=== PATIENT | male | born 1970 | race Caucasian/White ===

== ENCOUNTER 2016-10-31 19:14 | Emergency (ER) | payer BC ==
[2016-10-31] MEDS ORDERED: HYDROmorphone 1 MG/ML SYRINGE IVP STA (19:43)
[2016-10-31] MEDS ORDERED: HYDROmorphone 1 MG/ML SYRINGE ONE (19:58)
[2016-10-31] MEDS ORDERED: SUMAtriptan 6 MG/0.5 ML VIAL SUBQ STA (21:01)
[2016-10-31] MEDS ORDERED: SUMAtriptan 6 MG/0.5 ML VIAL SUBQ ONE (21:04)
[2016-10-31] MEDS ORDERED: LIDOCAINE 2%-EPI 1:100000 20 ML MDV SUBQ STA (21:26)
[2016-10-31] MEDS ORDERED: MIDAZOLAM 2 MG/2 ML VIAL IVP STA (21:26)
[2016-10-31] MEDS ORDERED: MIDAZOLAM 2 MG/2 ML VIAL ONE (21:30)
[2016-10-31] MEDS ORDERED: LIDOCAINE 1%-EPI 1:100000 20 ML MDV ONE (21:30)
[2016-10-31] MEDS ORDERED: SODIUM CHLORIDE 0.9% 1,000 ML IV ONE (22:05)
[2016-10-31] MEDS ORDERED: HALOPERIDOL 5 MG/ML VIAL IVP STA (22:05)
[2016-10-31] MEDS ORDERED: HALOPERIDOL 5 MG/ML VIAL ONE (22:10)
== END 2016-10-31 23:10 | disposition home or self-care (01) ==
DX: R51 Headache (principal)
CPT/HCPCS: 36415; 62270; 70450; 80053; 82945; 83690; 84157; 85025; 87070; 87205; 89051; 96372; 96374; 96375; 99283; 99284; J1170

== ENCOUNTER 2017-02-05 15:54 | Outpatient (CLI) | payer BC | END 2017-02-05 15:55 | disposition short-term general hospital (02) | DX: R07.9 Chest pain, unspecified (principal); R06.02 Shortness of breath | CPT/HCPCS: A0425; A0427 ==

== ENCOUNTER 2017-05-24 19:55 | Emergency (ER) | payer BC ==
[2017-05-24 20:03] VITALS: BP 140/85
[2017-05-24] MEDS ORDERED: oxyCOD/ACETAMIN 5 MG/325 MG TABLET PO STA (21:10)
[2017-05-24] MEDS ORDERED: oxyCOD/ACETAMIN 5 MG/325 MG TABLET PO ONE (21:18)
[2017-05-24] MEDS ORDERED: LIDOCAINE 2%-EPI 1:100000 20 ML MDV ONE (21:19)
--- NOTE | 2017-05-24 21:35 | ED Physician Documentation ---
PD HPI SKIN - Stated complaint Stated Complaint: Phillip BULLOCK - Chief complaint Chief Complaint: Wound - History obtained from History obtained from: Patient, Family - History of Present Illness Timing - onset: How many days ago (3) Timing - details: Gradual onset, Still present Location: RUE Quality / character: Painful, Raised Associated symptoms: No: Fever, Myalgias, Joint pain Contributing factors: No: Exposed to medication, Exposed to food Similar symptoms before: Has not had sx before Recently seen: Not recently seen - Additional information Additional information: Patient is a 47 year old male presenting to the emergency department for right axillary abscess. Patient states that he noticed it a couple of days ago and it has become progressively worse. Review of Systems Constitutional: denies: Fever, Chills Nose: denies: Rhinorrhea / runny nose, Congestion Throat: denies: Sore throat Cardiac: denies: Chest pain / pressure, Palpitations GI: denies: Nausea, Vomiting Skin: reports: Lesions Immunocompromised: denies: Immunocompromised PD PAST MEDICAL HISTORY - Past Surgical History Past Surgical History: No - Present Medications Home Medications: Ambulatory Orders Medication Instructions Recorded Confirmed Aspirin 81 mg PO DAILY 05/24/17 05/24/17 Atenolol 25 mg PO DAILY 05/24/17 05/24/17 Atorvastatin Calcium 40 mg PO DAILY 05/24/17 05/24/17 Cholecalciferol (Vitamin D3) 1,000 unit PO DAILY 05/24/17 05/24/17 [Vitamin D3] Clopidogrel [Plavix] 75 mg PO DAILY 05/24/17 05/24/17 Cyanocobalamin (Vitamin B-12) 2,000 mcg PO DAILY 05/24/17 05/24/17 [Vitamin B-12] Fluoxetine HCl [Fluoxetine HCl] 20 mg PO DAILY 05/24/17 05/24/17 Pantoprazole Sodium [Protonix] 40 mg PO DAILY 05/24/17 05/24/17 Sildenafil Citrate [Sildenafil] 100 mg PO DAILY 05/24/17 05/24/17 traZODone [Desyrel] 100 mg PO DAILY 05/24/17 05/24/17 - Allergies Allergies/Adverse Reactions: Allergies Allergy/AdvReac Type Severity Reaction Status Date / Time niacin Allergy Hives Verified 05/24/17 20:02 - Social History Does the pt smoke?: No Smoking Status: Never smoker Does the pt drink ETOH?: Yes Does the pt have substance abuse?: No PD ED PE NORMAL - Vitals Vital signs reviewed: Yes - General General: Alert and oriented X 3, No acute distress - HEENT HEENT: Atraumatic, PERRL - Neck Neck: Supple, no meningeal sign - Cardiac Cardiac: RRR - Respiratory Respiratory: No respiratory distress - Abdomen Abdomen: Soft, Non distended - Extremities Extremities: No deformity, Normal ROM s pain - Neuro Neuro: Alert and oriented X 3, No motor deficit, No sensory deficit, Normal speech - Psych Psych: Normal mood, Normal affect PD ED PE EXPANDED - Derm Derm: Abscess (2cm by 1 cm abscess in right axillary region) Results - Vitals Vitals: Vital Signs - 24 hr 05/24/17 20:02 Temperature 36.5 C Heart Rate 66 Respiratory 16 Rate Blood Pressure 140/85 H O2 Saturation 99 Oxygen O2 Source Room air Procedures - Abscess I&D (location) right axilla Preparation: Lidocaine 2 % Incision: Incised with scalpel, Purulent drainage Other: Pt tolerated well PD MEDICAL DECISION MAKING - ED course Complexity details: reviewed old records, reviewed results, re-evaluated patient , considered differential, d/w patient, d/w family ED course: Patient was seen and examined at bedside. patient was well appearing. abscess was I/D as described above. patient required no further work up and was stable for discharge with outpatient follow up. Departure - Departure Disposition: 01 Home, Self Care Clinical Impression: Abscess Condition: Good Instructions: ED Abscess IandD Follow-Up: primary,care provider [Other] - As Needed Comments: Please keep your wound clean and dry. You should try to expel the material while in the shower. You should follow up with your pmd if your symptoms dont improve over the next couple of days. You can take motrin or tylenol as needed for pain. Discharge Date/Time: 05/24/17 21:49
== END 2017-05-24 21:49 | disposition home or self-care (01) ==
LOC: ED 19:55
DX: L02.411 Cutaneous abscess of right axilla (principal); Z79.82 Long term (current) use of aspirin
CPT/HCPCS: 10060; 99282; 99283; A9270

== ENCOUNTER 2017-10-02 13:59 | Emergency (ER) | payer BC ==
--- NOTE | 2017-10-02 14:37 | ED Physician Documentation ---
PD HPI BACK PAIN - Stated complaint Stated Complaint: LOW BACK PX - Chief complaint Chief Complaint: Back Pain - History obtained from History obtained from: Patient - History of Present Illness Timing - onset: How many weeks ago (1) Timing - duration: Weeks (1) Timing - details: Gradual onset, Still present Location: Lower, Right Quality: Pain, Spasm Associated symptoms: No: Fever, Weakness, Numbness, Incontinent of urine Worsened by: Movement, Lifting Contributing factors: Lifting, Twisting. No: Trauma Similar symptoms before: Diagnosis (has had back pains intermittently for awhile with prior back surgery in about 2009. Has gotten referral to Spine surgeon at [place] with appt Oct 22. Having increased pain the past couple weeks and OTC meds not working well.) Review of Systems Constitutional: denies: Fever, Chills Nose: denies: Rhinorrhea / runny nose, Congestion Throat: denies: Sore throat Cardiac: denies: Chest pain / pressure Respiratory: denies: Cough GI: denies: Abdominal Pain, Nausea, Vomiting, Diarrhea Skin: reports: Rash (he says he has had small bumps in right armpit that drain after they get bigger then others crop up. has a few small ones currently.) PD PAST MEDICAL HISTORY - Past Medical History Cardiovascular: [place] Respiratory: None Neuro: None Psych: Depression Musculoskeletal: Chronic back pain - Past Surgical History Past Surgical History: Yes Cardiovascular: Coronary stent - Present Medications Home Medications: Ambulatory Orders Medication Instructions Recorded Confirmed Aspirin 81 mg PO DAILY 05/24/17 10/02/17 Atenolol 25 mg PO DAILY 05/24/17 10/02/17 Atorvastatin Calcium 40 mg PO DAILY 05/24/17 10/02/17 Cholecalciferol (Vitamin D3) 1,000 unit PO DAILY 05/24/17 10/02/17 [Vitamin D3] Clopidogrel [Plavix] 75 mg PO DAILY 05/24/17 10/02/17 Cyanocobalamin (Vitamin B-12) 2,000 mcg PO DAILY 05/24/17 10/02/17 [Vitamin B-12] Fluoxetine HCl [Fluoxetine HCl] 20 mg PO DAILY 05/24/17 10/02/17 Pantoprazole Sodium [Protonix] 40 mg PO DAILY 05/24/17 10/02/17 Dexamethasone [Decadron] 4 mg PO DAILY #5 tablet 10/02/17 Methocarbamol [Robaxin-750] 750 mg PO Q6H PRN #30 tablet 10/02/17 Mupirocin 1 applic TP TID #15 oint...g. 10/02/17 Oxycodone HCl/Acetaminophen 1 each PO Q6H PRN #20 tablet 10/02/17 [Percocet 7.5-325 mg Tablet] Sulfamethox/Trimeth 800/160 1 each PO BID #14 tablet 10/02/17 [Bactrim Ds 800/160] - Allergies Allergies/Adverse Reactions: Allergies Allergy/AdvReac Type Severity Reaction Status Date / Time niacin Allergy Hives Verified 10/02/17 14:07 - Social History Does the pt smoke?: No Smoking Status: Never smoker Does the pt drink ETOH?: Yes Does the pt have substance abuse?: No - Immunizations Immunizations are current?: No Immunizations: TDAP >10years/unknown PD ED PE NORMAL - Vitals Vital signs reviewed: Yes - General General: Alert and oriented X 3, No acute distress, Well developed/nourished - HEENT HEENT: Pharynx benign - Neck Neck: Supple, no meningeal sign, No adenopathy - Cardiac Cardiac: RRR, No murmur - Respiratory Respiratory: Clear bilaterally - Abdomen Abdomen: Soft, Non tender - Back Back: No CVA TTP, No spinal TTP (but is tender in lumbar muscles of upper to mid lumbar area with lessened comfortable ROM. No rash nor sores. No percussion tenderness at spine. ) - Derm Derm: Normal color, Warm and dry, No rash, Other (right armpit with small pointed pimple type bumps (a few small). No feeling of large abscess. ) - Neuro Neuro: Alert and oriented X 3, No motor deficit, No sensory deficit Results - Vitals Vitals: Vital Signs - 24 hr 10/02/17 10/02/17 14:04 15:27 Temperature 36.0 C L 36.4 C L Heart Rate 65 59 L Respiratory 16 20 Rate Blood Pressure 133/90 H 144/95 H O2 Saturation 98 98 Oxygen O2 Source Room air PD MEDICAL DECISION MAKING - ED course Complexity details: considered differential (low back pain without redness, rash , fever, nor percussion tenderness. He has had some small armpit abscesses for few weeks on and off; I don't get sense of seeded infection. ), d/w patient Departure - Departure Disposition: 01 Home, Self Care Clinical Impression: Armpit abscess Low back pain Qualifiers: Chronicity: unspecified Back pain laterality: bilateral Sciatica presence: with sciatica Sciatica laterality: sciatica laterality unspecified Qualified Code(s): M54.40 - Lumbago with sciatica, unspecified side Condition: Stable Record reviewed to determine appropriate education?: Yes Instructions: ED Low Back Pain Injury, ED Sciatica Follow-Up: Kassie Almodovar MD [Primary Care Provider] - [facility] [Provider Group] Prescriptions: Dexamethasone [Decadron] 4 mg PO DAILY #5 tablet Methocarbamol [Robaxin-750] 750 mg PO Q6H PRN #30 tablet PRN Reason: Spasms Mupirocin 1 applic TP TID #15 oint...g. Oxycodone HCl/Acetaminophen [Percocet 7.5-325 mg Tablet] 1 each PO Q6H PRN #20 tablet PRN Reason: Pain Sulfamethox/Trimeth 800/160 [Bactrim Ds 800/160] 1 each PO BID #14 tablet Comments: Tylenol if needed for mild pain. Use Decadron anti-inflammatory daily for 5 days. Add methocarbamol if needed for spasms and stiffness. To this add oxycodone every 6 hours if needed for pains. This will make you somnolent so be aware of that. Drink lots of fluids and daily stool softener so you do not get constipated from it. Follow-up with the [facility] spine clinic on October 22 as planned. Follow-up with your primary care or back in the ER here if worsening symptoms. For the armpit infection, cleanse with soap and water and apply mupirocin topical antibiotic 2-3 times a day. Also take Bactrim oral antibiotic twice daily for a week. Recheck if that is not improved over the next several days to week with your primary care. Discharge Date/Time: 10/02/17 15:53
[2017-10-02] MEDS ORDERED: DEXAMETHASONE 10 MG/ML VIAL PO STA (14:55)
[2017-10-02] MEDS ORDERED: KETOROLAC 60 MG/2 ML VIAL IM STA (14:55)
[2017-10-02 15:39] VITALS: BP 144/95
== END 2017-10-02 15:53 | disposition home or self-care (01) ==
LOC: ED 13:59
DX: L02.411 Cutaneous abscess of right axilla (principal); M54.40 Lumbago with sciatica, unspecified side; I25.2 Old myocardial infarction; Z95.5 Presence of coronary angioplasty implant and graft; Z79.82 Long term (current) use of aspirin
CPT/HCPCS: 96372; 99283

== ENCOUNTER 2018-02-01 19:50 | Emergency (ER) | payer BC, OTHER ==
[2018-02-01] MEDS ORDERED: MORPHINE 10 MG/ML VIAL IM STA (20:16)
[2018-02-01] MEDS ORDERED: KETOROLAC 60 MG/2 ML VIAL IVP STA (20:16)
[2018-02-01] MEDS ORDERED: oxyCODONE/ACET 5/325 Prepack 4 PO STA (20:16)
--- NOTE | 2018-02-01 20:19 | ED Physician Documentation ---
History of Present Illness - Stated complaint Stated Complaint: LOW BACK PX - Chief complaint Chief Complaint: Back Pain - History obtained from History obtained from: Patient - History of Present Illness Timing: Other (47-year-old gentleman with chronic recurrent low back pain, he was bending over to pick something up today at work and felt sharp pain in his low back like a band across the low back and across the top of the thighs but not lateralizing to one side or another. There is no weakness, numbness, or tingling in the legs or saddle area, no fevers. No incontinence.) Review of Systems Constitutional: denies: Fever, Chills Cardiac: denies: Chest pain / pressure, Palpitations Respiratory: denies: Dyspnea, Cough PD PAST MEDICAL HISTORY - Past Medical History Cardiovascular: [place] Respiratory: None Neuro: None Psych: Depression Musculoskeletal: Chronic back pain - Past Surgical History Past Surgical History: Yes Cardiovascular: Coronary stent - Present Medications Home Medications: Ambulatory Orders Medication Instructions Recorded Confirmed Aspirin 81 mg PO DAILY 05/24/17 10/02/17 Atenolol 25 mg PO DAILY 05/24/17 10/02/17 Atorvastatin Calcium 40 mg PO DAILY 05/24/17 10/02/17 Cholecalciferol (Vitamin D3) 1,000 unit PO DAILY 05/24/17 10/02/17 [Vitamin D3] Clopidogrel [Plavix] 75 mg PO DAILY 05/24/17 10/02/17 Cyanocobalamin (Vitamin B-12) 2,000 mcg PO DAILY 05/24/17 10/02/17 [Vitamin B-12] Fluoxetine HCl [Fluoxetine HCl] 20 mg PO DAILY 05/24/17 10/02/17 Pantoprazole Sodium [Protonix] 40 mg PO DAILY 05/24/17 10/02/17 Dexamethasone [Decadron] 4 mg PO DAILY #5 tablet 10/02/17 Methocarbamol [Robaxin-750] 750 mg PO Q6H PRN #30 tablet 10/02/17 Mupirocin 1 applic TP TID #15 oint...g. 10/02/17 Oxycodone HCl/Acetaminophen 1 each PO Q6H PRN #20 tablet 10/02/17 [Percocet 7.5-325 mg Tablet] Sulfamethox/Trimeth 800/160 1 each PO BID #14 tablet 10/02/17 [Bactrim Ds 800/160] Methocarbamol [Robaxin-750] 750 mg PO Q6H PRN #20 tablet 02/01/18 Oxycodone HCl/Acetaminophen 1 - 2 tab PO Q4H PRN #15 tablet 02/01/18 [Percocet 5-325 mg Tablet] - Allergies Allergies/Adverse Reactions: Allergies Allergy/AdvReac Type Severity Reaction Status Date / Time niacin Allergy Hives Verified 02/01/18 20:01 - Social History Does the pt smoke?: No Smoking Status: Never smoker Does the pt drink ETOH?: Yes Does the pt have substance abuse?: No - Immunizations Immunizations are current?: No Immunizations: TDAP >10years/unknown PD ED PE NORMAL - Vitals Vital signs reviewed: Yes - General General: Alert and oriented X 3, No acute distress - Back Back: No spinal TTP, Other (Diffuse paralumbar muscular tenderness in the low back.) - Extremities Extremities: Other (The patient has equal and normal Achilles and patellar reflexes bilaterally. Normal sensation in all areas of the legs. Patient denies saddle anesthesia. Normal strength in flexion-extension at the ankles, knees, and flexion of the hips.) - Neuro Neuro: Alert and oriented X 3, Normal speech Results - Vitals Vitals: Vital Signs - 24 hr 02/01/18 19:59 Temperature 36.7 C Heart Rate 71 Respiratory 18 Rate Blood Pressure 134/87 H O2 Saturation 98 Oxygen O2 Source Room air PD MEDICAL DECISION MAKING - ED course ED course: The [place] prescription monitoring program was queried with regard to this patient. No concerning findings were found. This patient has seemingly uncomplicated musculoskeletal back pain. The patient has no "red flags." Specifically denies IV drug use, fevers, incontinence, saddle anesthesia. Spinal epidural abscess was considered, given that the patient has no fever, is not diabetic, has no spinal tenderness, does not use IV drugs, and has no bilateral neurologic symptoms, the diagnosis of spinal epidural abscess is considered exceedingly unlikely. Departure - Departure Disposition: Home, Self Care Clinical Impression: Low back pain Qualifiers: Chronicity: acute Back pain laterality: bilateral Sciatica presence: without sciatica Qualified Code(s): M54.5 - Low back pain Condition: Good Record reviewed to determine appropriate education?: Yes Instructions: ED Spasm Back No Trauma Prescriptions: Methocarbamol [Robaxin-750] 750 mg PO Q6H PRN #20 tablet PRN Reason: Spasms Oxycodone HCl/Acetaminophen [Percocet 5-325 mg Tablet] 1 - 2 tab PO Q4H PRN #15 tablet PRN Reason: Pain Comments: Call your doctor to arrange a follow-up appointment, make the next available appointment. In the interim, return anytime if worse or if new symptoms develop. Do not drink or drive while taking narcotic pain medication. Note that many narcotic pain relievers also contain Tylenol/acetaminophen. Please ensure that your total dose of acetaminophen from all sources does not exceed 3 g (3000 mg) per day. You may get constipated while on this medication. Take a stool softener such as Colace twice a day while you are on it. Also add an [id number] laxative such as senna or MiraLAX on any day that you do not have a bowel movement. If you received a narcotic pain medication or sedative while in the emergency department, do not drive for the next 24 hours. Your blood pressure was elevated today on check into the emergency department. This does not mean that you have hypertension, it is a common phenomenon to come to the emergency department and have elevated blood pressure. I recommend that you see your primary care physician within the week to have it rechecked when you are feeling better.
[2018-02-01 20:42] VITALS: BP 136/70
== END 2018-02-01 20:41 | disposition home or self-care (01) ==
LOC: ED 19:50
DX: M54.5 Low back pain (principal); R03.0 Elevated blood-pressure reading, without diagnosis of hypertension; G89.29 Other chronic pain; I25.2 Old myocardial infarction; Z95.5 Presence of coronary angioplasty implant and graft
CPT/HCPCS: 96372; 96374; 99283

== ENCOUNTER 2018-09-10 06:58 | Outpatient (CLI) | payer OTHER ==
[2018-09-10] MEDS ORDERED: GADOBUTROL 10 MMOL/10 ML VIAL IVP ONE (08:06)
--- NOTE | 2018-09-10 12:50 | MRI Report ---
Reason: LBP Procedure Date: 09/10/2018 Accession Number: [id number] / [id number] Procedure: MRI - Lumbar Spine W/WO CPT Code: FULL RESULT: EXAM: MRI LUMBAR SPINE WITHOUT AND WITH CONTRAST EXAM DATE: 09/10/2018 07:23 AM. CLINICAL HISTORY: Low back pain. Worsening hip pain and leg pain with numbness. COMPARISONS: None. TECHNIQUE: Multiplanar, multisequence T1-weighted and fluid-sensitive sequences of the lumbar spine from T12 to S1 before and after administration of intravenous contrast. Other: None. IV contrast: 10 mL Gadavist. FINDINGS: Neurologic Structures: The conus terminates at L1-L2. The conus medullaris and cauda equina are unremarkable. Alignment: No scoliosis or spondylolisthesis. Bone Marrow: Five [id number] lumbar vertebral bodies are assumed. Moderate degenerative endplate signal changes at L5-S1. Disk Levels/Facets: T12-L1: Unremarkable. L1-L2: Unremarkable. L2-L3: Unremarkable. L3-L4: Minimal degenerative changes, but no stenosis or disk herniation. L4-L5: Mild disk space dehydration and narrowing. Minimal facet hypertrophy. Shallow circumferential disk bulge. Minimal marginal spurring. No focal extrusion, significant stenosis or focal nerve root compression. Small enhancing posterior annular fissure may be present. L5-S1: Moderately prominent degenerative disk disease. Disk space dehydration and narrowing. Mixed signal degenerative endplate signal changes. There may be an acute on chronic component. Prominent circumferential disk bulge with marginal spurring. Additional extension of disk protrusion with osteophyte laterally into both neural foramina. Mild facet arthropathy. Patent central canal. Mild lateral recess stenosis without S1 nerve root compression. Moderate to severe bilateral degenerative foraminal stenosis. Prominent enhancing annular fissure posteriorly. Spinal Canal: No enhancing masses within the spinal canal. No epidural abscess. Musculature: Normal. No edema, abnormal enhancement, or fatty atrophy. Other: None. IMPRESSION: 1. Degenerative changes at L4-L5, no associated stenosis. 2. Prominent degenerative changes as noted at L5-S1 with potentially significant degenerative foraminal stenosis bilaterally. 3. Benign-appearing degenerative endplate signal changes at L5-S1. 3. No evidence for enhancing infection or tumor. Comment: The following findings are so common in adults without low back pain that while we report their presence, they must be interpreted with caution and in the context of the clinical situation. (Reference Jarvik et al, Spine 2001) Prevalence of findings in patients without low back pain: Disk degeneration (any evidence): 92% Disk desiccation/T2 signal loss: 83% Disk height loss: 56% Disk bulge: 64% Disk protrusion: 32% Annular tear/high intensity zone: 38% RADIA
== END 2018-09-10 06:59 | disposition home or self-care (01) ==
LOC: LAB 06:58
PROVIDERS: ATTEND Internal Medicine
DX: M54.5 Low back pain (principal)
CPT/HCPCS: 36415; 72158; 82565; A9585

== ENCOUNTER 2019-02-10 17:12 | Emergency (ER) | payer BC, OTHER ==
--- NOTE | 2019-02-10 19:01 | XRAY Report ---
Reason: L wrist pain Procedure Date: 02/10/2019 Accession Number: [id number] / [id number] Procedure: XR - Wrist 4 View LT CPT Code: FULL RESULT: EXAM: LEFT WRIST RADIOGRAPHY EXAM DATE: 02/10/2019 06:48 PM. CLINICAL HISTORY: Chronic left dorsal wrist pain. COMPARISON: FINGER(S) RT 08/15/2017 7:02 PM. TECHNIQUE: 4 views. FINDINGS: Bones: Normal. No fractures or bone lesions. Joints: Normal. No subluxations. Soft Tissues: Normal. No soft tissue swelling. IMPRESSION: Normal wrist radiography. RADIA
--- NOTE | 2019-02-10 20:10 | ED Physician Documentation ---
PD HPI UPPER EXT INJURY - Stated complaint Stated Complaint: L WRIST PX - Chief complaint Chief Complaint: Ext Problem - History obtained from History obtained from: Patient - History of Present Illness Location: Left, Wrist Type of injury: Twist Timing - onset: Other (July 2018 (6 months ago)) Timing - details: Abrupt onset, Waxing and waning Pain level now: 7 Improved by: Rest Worsened by: Moving, Palpating Associated symptoms: No: Weakness, Numbness, Tingling, Swelling, Discolored Contributing factors: No: Anticoagulated Similar symptoms before: Has not had sx before Recently seen: Not recently seen - Additonal information Additional information: left wrist injury in July 2018, has had waxing and waning left wrist pain since then, worse the past month. Came to ED tonight because "just couldn't stand the pain any more". Has not seen a medical provider for this until now, has not made appointment yet. Review of Systems Skin: denies: Rash Musculoskeletal: reports: Joint pain. denies: Extremity swelling, Joint swelling Neurologic: denies: Focal weakness, Numbness PD PAST MEDICAL HISTORY - Past Medical History Past Medical History: No Cardiovascular: [place] Respiratory: None Neuro: None Endocrine/Autoimmune: None GI: None : None HEENT: None Psych: Depression Musculoskeletal: Chronic back pain Derm: None - Past Surgical History Past Surgical History: Yes Cardiovascular: Coronary stent - Present Medications Home Medications: Ambulatory Orders Medication Instructions Recorded Confirmed Aspirin 81 mg PO DAILY 05/24/17 10/02/17 Atenolol 25 mg PO DAILY 05/24/17 10/02/17 Atorvastatin Calcium 40 mg PO DAILY 05/24/17 10/02/17 Cholecalciferol (Vitamin D3) 1,000 unit PO DAILY 05/24/17 10/02/17 [Vitamin D3] Clopidogrel [Plavix] 75 mg PO DAILY 05/24/17 10/02/17 Cyanocobalamin (Vitamin B-12) 2,000 mcg PO DAILY 05/24/17 10/02/17 [Vitamin B-12] Fluoxetine HCl 20 mg PO DAILY 05/24/17 10/02/17 Pantoprazole Sodium [Protonix] 40 mg PO DAILY 05/24/17 10/02/17 Dexamethasone [Decadron] 4 mg PO DAILY #5 tablet 10/02/17 Methocarbamol [Robaxin-750] 750 mg PO Q6H PRN #30 tablet 10/02/17 Mupirocin 1 applic TP TID #15 oint...g. 10/02/17 Oxycodone HCl/Acetaminophen 1 each PO Q6H PRN #20 tablet 10/02/17 [Percocet 7.5-325 mg Tablet] Sulfamethox/Trimeth 800/160 1 each PO BID #14 tablet 10/02/17 [Bactrim Ds 800/160] Methocarbamol [Robaxin-750] 750 mg PO Q6H PRN #20 tablet 02/01/18 Oxycodone HCl/Acetaminophen 1 - 2 tab PO Q4H PRN #15 tablet 02/01/18 [Percocet 5-325 mg Tablet] - Allergies Allergies/Adverse Reactions: Allergies Allergy/AdvReac Type Severity Reaction Status Date / Time niacin Allergy Hives Verified 02/10/19 17:43 - Social History Does the pt smoke?: No Smoking Status: Former smoker Does the pt drink ETOH?: Yes Does the pt have substance abuse?: Yes Substance Use and Type: Marijuana - Immunizations Immunizations are current?: Yes Immunizations: TDAP >10years/unknown - POLST Patient has POLST: No PD ED PE NORMAL - Vitals Vital signs reviewed: Yes - General General: Alert and oriented X 3, No acute distress, Well developed/nourished - Derm Derm: Normal color, Warm and dry, No rash - Extremities Extremities: No deformity, No tenderness to palpate, No edema, Other (FROM right wrist (flex/ext/rad deviation/ulnar deviation), but increased pain with radial deviation) - Neuro Neuro: No motor deficit, No sensory deficit Results - Vitals Vitals: Vital Signs - 24 hr 02/10/19 02/10/19 17:36 20:27 Temperature 36.6 C 36.3 C L Heart Rate 66 57 L Respiratory 16 18 Rate Blood Pressure 129/82 H 134/87 H O2 Saturation 98 99 Oxygen O2 Source Room air - Rads (name of study) left wrist xrays Radiology: Prelim report reviewed, See rad report PD MEDICAL DECISION MAKING - ED course Complexity details: reviewed results, re-evaluated patient, considered differential, d/w patient Departure - Departure Disposition: 01 Home, Self Care Clinical Impression: Left wrist sprain Qualifiers: Encounter type: initial encounter Qualified Code(s): S63.502A - Unspecified sprain of left wrist, initial encounter Condition: Good Instructions: ED Splint Care YONIS Forrester Sprain Wrist Comments: Follow up with your doctor within 1-2 weeks. Further testing/treatment might be indicated. Discharge Date/Time: 02/10/19 20:30
[2019-02-10 20:30] VITALS: BP 134/87
== END 2019-02-10 20:30 | disposition home or self-care (01) ==
LOC: ED 17:12
DX: S63.502A Unspecified sprain of left wrist, initial encounter (principal); X50.1XXA Overexertion from prolonged static or awkward postures, initial encounter; Z87.891 Personal history of nicotine dependence; Z79.82 Long term (current) use of aspirin; Z79.02 Long term (current) use of antithrombotics/antiplatelets
CPT/HCPCS: 99282; 99283

== ENCOUNTER 2019-12-02 17:43 | Emergency (ER) | payer BC, OTHER ==
--- NOTE | 2019-12-02 19:37 | ED Physician Documentation ---
PD HPI URI - Stated complaint Stated Complaint: COUGH/CONGESTION - Chief complaint Chief Complaint: Resp - History obtained from History obtained from: Patient - History of Present Illness Timing - onset: How many days ago (11) Timing duration: Days Timing details: Gradual onset Associated symptoms: Ear pain, Nasal congestion, Rhinorrhea, Sinus pain, Productive cough. No: Fever Recently seen: Not recently seen Review of Systems Constitutional: reports: Reviewed and negative Ears: reports: Ear pain Nose: reports: Rhinorrhea / runny nose, Congestion, Sinus pressure / pain Respiratory: reports: Cough PD PAST MEDICAL HISTORY - Past Medical History Past Medical History: Yes Cardiovascular: [place] Respiratory: None Neuro: None Endocrine/Autoimmune: None GI: None : None HEENT: None Psych: Depression Musculoskeletal: Chronic back pain Derm: None - Past Surgical History Past Surgical History: Yes Cardiovascular: Coronary stent - Present Medications Home Medications: Ambulatory Orders Medication Instructions Recorded Confirmed Aspirin 81 mg PO DAILY 05/24/17 10/02/17 Atorvastatin Calcium 40 mg PO DAILY 05/24/17 10/02/17 Cholecalciferol (Vitamin D3) 1,000 unit PO DAILY 05/24/17 10/02/17 [Vitamin D3] Clopidogrel [Plavix] 75 mg PO DAILY 05/24/17 10/02/17 Cyanocobalamin (Vitamin B-12) 2,000 mcg PO DAILY 05/24/17 10/02/17 [Vitamin B-12] Fluoxetine HCl 20 mg PO DAILY 05/24/17 10/02/17 Pantoprazole Sodium [Protonix] 40 mg PO DAILY 05/24/17 10/02/17 atenoloL [Atenolol] 25 mg PO DAILY 05/24/17 10/02/17 Methocarbamol [Robaxin-750] 750 mg PO Q6H PRN #30 tablet 10/02/17 Mupirocin 1 applic TP TID #15 oint...g. 10/02/17 Oxycodone HCl/Acetaminophen 1 each PO Q6H PRN #20 tablet 10/02/17 [Percocet 7.5-325 mg Tablet] Sulfamethox/Trimeth 800/160 1 each PO BID #14 tablet 10/02/17 [Bactrim Ds 800/160] dexAMETHasone [Decadron] 4 mg PO DAILY #5 tablet 10/02/17 Methocarbamol [Robaxin-750] 750 mg PO Q6H PRN #20 tablet 02/01/18 Oxycodone HCl/Acetaminophen 1 - 2 tab PO Q4H PRN #15 tablet 02/01/18 [Percocet 5-325 mg Tablet] Albuterol Sulf [Ventolin Hfa 1 - 2 puffs INH Q4HR PRN #1 inhaler 12/02/19 Inhaler] Azithromycin [Zithromax] 250 mg PO DAILY #4 tablet 12/02/19 Benzonatate 200 mg PO TID PRN #20 capsule 12/02/19 predniSONE [Prednisone] 40 mg PO DAILY 3 Days #6 tablet 12/02/19 - Allergies Allergies/Adverse Reactions: Allergies Allergy/AdvReac Type Severity Reaction Status Date / Time niacin Allergy Hives Verified 12/02/19 17:51 - Social History Does the pt smoke?: No Smoking Status: Never smoker Does the pt drink ETOH?: Yes Does the pt have substance abuse?: Yes - Immunizations Immunizations are current?: Yes Immunizations: TDAP >10years/unknown - POLST Patient has POLST: No PD ED PE NORMAL - Vitals Vital signs reviewed: Yes - General General: Alert and oriented X 3, No acute distress, Well developed/nourished - HEENT HEENT: Ears normal, Moist mucous membranes - Neck Neck: Supple, no meningeal sign - Respiratory Respiratory: No respiratory distress, Clear bilaterally Results - Vitals Vitals: Oxygen O2 Source Room air - Labs Labs: Laboratory Tests 12/02/19 17:57 Influenza A (Rapid) Negative Influenza B (Rapid) Negative PD MEDICAL DECISION MAKING - ED course Complexity details: considered differential, d/w patient Departure - Departure Disposition: 01 Home, Self Care Clinical Impression: Sinusitis, Bronchitis, Otitis media Condition: Good Instructions: ED Sinusitis Abx Tx Prescriptions: Albuterol Sulf [Ventolin Hfa Inhaler] 1 - 2 puffs INH Q4HR PRN #1 inhaler PRN Reason: Shortness Of Air/Wheezing Azithromycin [Zithromax] 250 mg PO DAILY #4 tablet Benzonatate 200 mg PO TID PRN #20 capsule PRN Reason: Cough predniSONE [Prednisone] 40 mg PO DAILY 3 Days #6 tablet Forms: Activity restrictions Discharge Date/Time: 12/02/19 20:27
[2019-12-02] MEDS ORDERED: CHERRY SYRUP 10 ML UDC PO ONE (19:52)
[2019-12-02] MEDS ORDERED: AZITHROMYCIN 250 MG TABLET PO STA (19:52)
[2019-12-02] MEDS ORDERED: ALBUTEROL NEB 2.5 MG/3 ML INH STA (19:52)
[2019-12-02] MEDS ORDERED: DEXAMETHASONE 10 MG/ML VIAL PO STA (19:52)
[2019-12-02] MEDS ORDERED: BENZONATATE 100 MG CAPSULE PO STA (19:53)
[2019-12-02 20:28] VITALS: BP 150/90
== END 2019-12-02 20:27 | disposition home or self-care (01) ==
LOC: ED 17:43
DX: J32.9 Chronic sinusitis, unspecified (principal); J40 Bronchitis, not specified as acute or chronic; H66.90 Otitis media, unspecified, unspecified ear
CPT/HCPCS: 87275; 87276; 94640; 99283; 99284; A9270

== ENCOUNTER 2020-02-05 15:50 | Emergency (ER) | payer OTHER ==
--- NOTE | 2020-02-05 16:10 | ED Physician Documentation ---
PD HPI CHEST PAIN - Stated complaint Stated Complaint: CHEST DISCOMFORT, SWELLING, BILAT SIDE PX - Chief complaint Chief Complaint: Cardiac - History obtained from History obtained from: Patient - History of Present Illness Pain level max: 4 Pain level now: 3 Improved by: Nothing. No: Rest, Oxygen, Nitro, ASA, Antacids, Other medication Worsened by: No: Exertion, Inspiration, Eating, Movement, Palpation, Position Associated symptoms: No: Shortness of air, Diaphoresis, Nausea, Vomiting, Feeling faint / dizzy, General Weakness, Palpitations, Cough - Additional information Additional information: 49-year-old male presents to the emergency department stating he has had mid back pain for the past 3 to 4 days. He states this feels like this is in his kidneys. worse with movement and better with rest. Also states today has L sided chest pain. states lasts 1-2 seconds at a time and feels dull. History of cardiac stent in 2017. No history of heart failure. He states that he feels like his legs and arms are more swollen than usual as well. No difficulty breathing. Review of Systems Constitutional: denies: Fever, Chills Respiratory: denies: Cough GI: denies: Abdominal Pain, Vomiting, Diarrhea Skin: denies: Rash Musculoskeletal: denies: Neck pain Neurologic: denies: Focal weakness, Numbness PD PAST MEDICAL HISTORY - Past Medical History Past Medical History: Yes Cardiovascular: Hypertension, High cholesterol, [place] Respiratory: None, Sleep apnea Neuro: None Endocrine/Autoimmune: None GI: GERD : None HEENT: Chronic hearing loss Psych: Depression, Anxiety Musculoskeletal: Chronic back pain Derm: None - Past Surgical History Past Surgical History: Yes Cardiovascular: Coronary stent - Present Medications Home Medications: Ambulatory Orders Medication Instructions Recorded Confirmed Aspirin 81 mg PO DAILY 05/24/17 10/02/17 Atorvastatin Calcium 40 mg PO DAILY 05/24/17 10/02/17 Cholecalciferol (Vitamin D3) 1,000 unit PO DAILY 05/24/17 10/02/17 [Vitamin D3] Clopidogrel [Plavix] 75 mg PO DAILY 05/24/17 10/02/17 Cyanocobalamin (Vitamin B-12) 2,000 mcg PO DAILY 05/24/17 10/02/17 [Vitamin B-12] Fluoxetine HCl 20 mg PO DAILY 05/24/17 10/02/17 Pantoprazole Sodium [Protonix] 40 mg PO DAILY 05/24/17 10/02/17 atenoloL [Atenolol] 25 mg PO DAILY 05/24/17 10/02/17 Methocarbamol [Robaxin-750] 750 mg PO Q6H PRN #30 tablet 10/02/17 Mupirocin 1 applic TP TID #15 oint...g. 10/02/17 Oxycodone HCl/Acetaminophen 1 each PO Q6H PRN #20 tablet 10/02/17 [Percocet 7.5-325 mg Tablet] Sulfamethox/Trimeth 800/160 1 each PO BID #14 tablet 10/02/17 [Bactrim Ds 800/160] dexAMETHasone [Decadron] 4 mg PO DAILY #5 tablet 10/02/17 Methocarbamol [Robaxin-750] 750 mg PO Q6H PRN #20 tablet 02/01/18 Oxycodone HCl/Acetaminophen 1 - 2 tab PO Q4H PRN #15 tablet 02/01/18 [Percocet 5-325 mg Tablet] Albuterol Sulf [Ventolin Hfa 1 - 2 puffs INH Q4HR PRN #1 inhaler 12/02/19 Inhaler] Azithromycin [Zithromax] 250 mg PO DAILY #4 tablet 12/02/19 Benzonatate 200 mg PO TID PRN #20 capsule 12/02/19 predniSONE [Prednisone] 40 mg PO DAILY 3 Days #6 tablet 12/02/19 Furosemide [Lasix] 20 mg PO DAILY #7 tablet 02/05/20 - Allergies Allergies/Adverse Reactions: Allergies Allergy/AdvReac Type Severity Reaction Status Date / Time niacin Allergy Hives Verified 02/05/20 15:56 - Social History Does the pt smoke?: No Smoking Status: Former smoker Does the pt drink ETOH?: Yes Does the pt have substance abuse?: No - Immunizations Immunizations are current?: Yes Immunizations: TDAP >10years/unknown - POLST Patient has POLST: No PD ED PE NORMAL - Vitals Vital signs reviewed: Yes - General General: Alert and oriented X 3, No acute distress, Well developed/nourished - HEENT HEENT: Moist mucous membranes - Neck Neck: Supple, no meningeal sign - Cardiac Cardiac: RRR, No murmur, Strong equal pulses - Respiratory Respiratory: No respiratory distress, Clear bilaterally - Abdomen Abdomen: Soft, Non tender, Non distended - Back Back: No CVA TTP, No spinal TTP - Derm Derm: Warm and dry - Extremities Extremities: No calf tenderness / cord, Other (1+ bilateral lower extremity pitting edema.) - Neuro Neuro: Alert and oriented X 3 - Psych Psych: Normal mood, Normal affect Results - Vitals Vitals: Vital Signs - 24 hr 02/05/20 02/05/20 02/05/20 15:56 16:09 17:00 Temperature 36.5 C Heart Rate 66 78 67 Respiratory 16 16 15 Rate Blood Pressure 142/94 H 134/91 H 127/85 H O2 Saturation 97 98 97 Oxygen O2 Source Room air - EKG (time done) 1605 Rate: Rate (enter#) (72) Rhythm: NSR Majestic: Normal Intervals: Normal DE QRS: Normal Ischemia: Normal ST segments - Labs Labs: Laboratory Tests 02/05/20 02/05/20 02/05/20 16:08 16:08 16:08 WBC 6.8 RBC 4.38 L Hgb 13.4 L Hct 38.7 L MCV 88.4 MCH 30.6 MCHC 34.6 RDW 12.3 Plt Count 172 MPV 9.9 Neut # (Auto) 4.1 Lymph # (Auto) 1.4 L [place] # (Auto) 0.7 Eos # (Auto) 0.4 Baso # (Auto) 0.0 Absolute Nucleated RBC 0.00 Nucleated RBC % 0.0 Sodium 137 Potassium 3.8 Chloride 102 Carbon Dioxide 29 Anion Gap 6.0 BUN 8 Creatinine 0.9 Estimated GFR (MDRD) 89 Glucose 92 Calcium 8.6 Total Bilirubin 0.7 AST 46 H ALT 91 H Alkaline Phosphatase 62 Troponin I High Sens 3.3 B-Natriuretic Peptide Total Protein 6.9 Albumin 4.2 Globulin 2.7 Albumin/Globulin Ratio 1.6 Lipase 22 Urine Color Urine Clarity Urine pH Ur Specific [place] Urine Protein Urine Glucose (UA) Urine Ketones Urine Occult Blood Urine Nitrite Urine Bilirubin Urine Urobilinogen Ur Leukocyte Esterase Ur Microscopic Review Urine Culture Comments 02/05/20 02/05/20 16:08 16:16 WBC RBC Hgb Hct MCV MCH MCHC RDW Plt Count MPV Neut # (Auto) Lymph # (Auto) [place] # (Auto) Eos # (Auto) Baso # (Auto) Absolute Nucleated RBC Nucleated RBC % Sodium Potassium Chloride Carbon Dioxide Anion Gap BUN Creatinine Estimated GFR (MDRD) Glucose Calcium Total Bilirubin AST ALT Alkaline Phosphatase Troponin I High Sens B-Natriuretic Peptide 47 Total Protein Albumin Globulin Albumin/Globulin Ratio Lipase Urine Color YELLOW Urine Clarity CLEAR Urine pH 7.5 Ur Specific [place] 1.020 Urine Protein NEGATIVE Urine Glucose (UA) NEGATIVE Urine Ketones NEGATIVE Urine Occult Blood NEGATIVE Urine Nitrite NEGATIVE Urine Bilirubin NEGATIVE Urine Urobilinogen 0.2 (NORMAL) Ur Leukocyte Esterase NEGATIVE Ur Microscopic Review NOT INDICATED Urine Culture Comments NOT INDICATED - Rads (name of study) Chest x-ray Radiology: Prelim report reviewed, EMP read contemporaneously, See rad report (No acute abnormality) PD MEDICAL DECISION MAKING - ED course Complexity details: reviewed results, re-evaluated patient, considered differential (No ST elevation NC, no aortic dissection, no PE, no tension pneumothorax, no aortic aneurysm), d/w patient ED course: No acute findings on x-ray, laboratory testing. Normal EKG. Negative high- sensitivity troponin. Chest pain is not typical for cardiac. No evidence of pulmonary embolus. No evidence of aortic dissection. We will trial on Lasix at home. Patient counseled regarding signs and symptoms for which I believe and urgent re-evaluation would be necessary. Patient with good understanding of and agreement to plan and is comfortable going home at this time This document was made in part using voice recognition software. While efforts are made to proofread this document, sound alike and grammatical errors may occur. Departure - Departure Disposition: 01 Home, Self Care Clinical Impression: Peripheral edema, Atypical chest pain Condition: Good Instructions: ED Chest Pain Atypical Unkn Cause, ED Edema Legs Bilateral Follow-Up: Ezio Purdy MD [Primary Care Provider] - Within 1 week Prescriptions: Furosemide [Lasix] 20 mg PO DAILY #7 tablet Comments: Lasix will help to decrease the swelling. Return if you worsen. Follow-up with your doctor for further care. Your other testing is normal today.
[2020-02-05 16:13] LABS: BASOPHILS % (AUTO) 0.4 %; EOSINOPHILS # (AUTO) 0.4 10^3/uL (0.0-0.7); EOSINOPHILS % (AUTO) 6.5 %; HGB - HEMOGLOBIN 13.4 g/dL (14.0-18.0); LYMPHOCYTES # (AUTO) 1.4 10^3/uL (1.5-3.5); LYMPHOCYTES % (AUTO) 20.6 %; MEAN CORPUSCULAR HEMOGLOBIN 30.6 pg (27.0-31.0); MEAN CORPUSCULAR HGB CONC 34.6 g/dL (32.0-36.0); MEAN CORPUSCULAR VOLUME 88.4 fL (80.0-94.0); MEAN PLATELET VOLUME 9.9 fL (7.4-11.4); MONOCYTES # (AUTO) 0.7 10^3/uL (0.0-1.0); MONOCYTES % (AUTO) 10.8 %; NEUTROPHILS # (AUTO) 4.1 10^3/uL (1.5-6.6); NEUTROPHILS % (AUTO) 61.3 %; PLT - PLATELET COUNT 172 10^3/uL (130-450); RED BLOOD COUNT 4.38 10^6/uL (4.70-6.10); RED CELL DISTRIBUTION WIDTH 12.3 % (12.0-15.0); WHITE BLOOD COUNT 6.8 x10^3/uL (4.8-10.8)
--- NOTE | 2020-02-05 16:20 | XRAY Report ---
Reason: Chest pain Procedure Date: 02/05/2020 Accession Number: [id number] / [id number] Procedure: XR - Chest 1 View X-Ray CPT Code: 37871 Final Report FULL RESULT: EXAM: CHEST RADIOGRAPHY EXAM DATE: 02/05/2020 04:14 PM. CLINICAL HISTORY: Chest pain. COMPARISON: None. TECHNIQUE: 1 view. FINDINGS: Lungs/Pleura: No focal opacities evident. No pleural effusion. No pneumothorax. Mediastinum: The heart size is normal. The trachea is midline. Other: None. IMPRESSION: Mild left midlung linear scar or atelectasis. Otherwise negative. RADIA
[2020-02-05 16:24] LABS: BILIRUBIN,URINE NEGATIVE (NEGATIVE); GLUCOSE, URINE (UA) NEGATIVE (NEGATIVE); KETONES,URINE (UA) NEGATIVE (NEGATIVE); LEUKOCYTE ESTERASE, URINE NEGATIVE (NEGATIVE); NITRITE,URINE NEGATIVE (NEGATIVE); OCCULT BLOOD,URINE NEGATIVE (NEGATIVE); PH,URINE 7.5 PH (5.0-7.5); PROTEIN,URINE NEGATIVE (NEGATIVE); UROBILINOGEN,URINE 0.2 (NORMAL) E.U./dL (NORMAL)
[2020-02-05 16:26] LABS: CLARITY,URINE CLEAR (CLEAR)
[2020-02-05 16:28] LABS: ALBUMIN 4.2 g/dL (3.2-5.5); ALBUMIN/GLOBULIN RATIO 1.6 (1.0-2.2); BILIRUBIN,TOTAL 0.7 mg/dL (0.2-1.0); CALCIUM 8.6 mg/dL (8.5-10.3); CREATININE 0.9 mg/dL (0.6-1.2); TOTAL PROTEIN 6.9 g/dL (6.7-8.2)
[2020-02-05] MEDS: FUROSEMIDE 20 MG TABLET PO STA (17:17)
[2020-02-05 17:18] VITALS: BP 127/85
== END 2020-02-05 17:28 | disposition home or self-care (01) ==
LOC: ED 15:50
DX: R60.0 Localized edema (principal); R07.89 Other chest pain; I10 Essential (primary) hypertension; Z87.891 Personal history of nicotine dependence
CPT/HCPCS: 36415; 71045; 80053; 81001; 81003; 83690; 83880; 84484; 85025; 87086; 93005; 99284

== ENCOUNTER 2020-06-13 21:42 | Emergency (ER) | payer OTHER ==
[2020-06-13 21:52] VITALS: BP 140/89
--- NOTE | 2020-06-13 22:01 | ED Physician Documentation ---
PD HPI UPPER EXT INJURY - Stated complaint Stated Complaint: DOG BITE, RIGHT HAND - Chief complaint Chief Complaint: Wound - History of Present Illness Location: Right, Hand Type of injury: Puncture wound Where injury occurred: Home Worsened by: Moving, Palpating Associated symptoms: Numbness, Swelling. No: Weakness, Tingling - Additonal information Additional information: 50-year-old male comes to the emergency department with bite wounds to his right hand sustained this evening when he was breaking up a dog fight between his 2 animals at home this evening. He reports that they are up-to-date on their immunizations. He has 2 superficial puncture wounds at the base of the ring finger just above the MCP as well as a deeper puncture wound in the webbing between the long and ring finger. No history of previous injury to this hand patient is right-hand dominant. Patient reports his own personal tetanus status is up-to-date. Review of Systems Constitutional: reports: Reviewed and negative Ears: reports: Reviewed and negative Nose: reports: Reviewed and negative Throat: reports: Reviewed and negative Cardiac: reports: Reviewed and negative Respiratory: reports: Reviewed and negative GI: reports: Reviewed and negative Skin: reports: Bite / sting Musculoskeletal: reports: Extremity pain. denies: Neck pain, Back pain PD PAST MEDICAL HISTORY - Past Medical History Past Medical History: Yes Cardiovascular: Hypertension, High cholesterol, [place] Respiratory: None, Sleep apnea Neuro: None Endocrine/Autoimmune: None GI: GERD : None HEENT: Chronic hearing loss Psych: Depression, Anxiety Musculoskeletal: Chronic back pain Derm: None - Past Surgical History Past Surgical History: Yes Cardiovascular: Coronary stent - Present Medications Home Medications: Ambulatory Orders Medication Instructions Recorded Confirmed Aspirin 81 mg PO DAILY 05/24/17 10/02/17 Atorvastatin Calcium 40 mg PO DAILY 05/24/17 10/02/17 Cholecalciferol (Vitamin D3) 1,000 unit PO DAILY 05/24/17 10/02/17 [Vitamin D3] Clopidogrel [Plavix] 75 mg PO DAILY 05/24/17 10/02/17 Cyanocobalamin (Vitamin B-12) 2,000 mcg PO DAILY 05/24/17 10/02/17 [Vitamin B-12] Fluoxetine HCl 20 mg PO DAILY 05/24/17 10/02/17 Pantoprazole Sodium [Protonix] 40 mg PO DAILY 05/24/17 10/02/17 atenoloL [Atenolol] 25 mg PO DAILY 05/24/17 10/02/17 Methocarbamol [Robaxin-750] 750 mg PO Q6H PRN #30 tablet 10/02/17 Mupirocin 1 applic TP TID #15 oint...g. 10/02/17 Oxycodone HCl/Acetaminophen 1 each PO Q6H PRN #20 tablet 10/02/17 [Percocet 7.5-325 mg Tablet] Sulfamethox/Trimeth 800/160 1 each PO BID #14 tablet 10/02/17 [Bactrim Ds 800/160] dexAMETHasone [Decadron] 4 mg PO DAILY #5 tablet 10/02/17 Methocarbamol [Robaxin-750] 750 mg PO Q6H PRN #20 tablet 02/01/18 Oxycodone HCl/Acetaminophen 1 - 2 tab PO Q4H PRN #15 tablet 02/01/18 [Percocet 5-325 mg Tablet] Albuterol Sulf [Ventolin Hfa 1 - 2 puffs INH Q4HR PRN #1 inhaler 12/02/19 Inhaler] Azithromycin [Zithromax] 250 mg PO DAILY #4 tablet 12/02/19 Benzonatate 200 mg PO TID PRN #20 capsule 12/02/19 predniSONE [Prednisone] 40 mg PO DAILY 3 Days #6 tablet 12/02/19 Furosemide [Lasix] 20 mg PO DAILY #7 tablet 02/05/20 Amox/Clav 875/125 [Augmentin] 1 each PO Q12H #20 tablet 06/13/20 - Allergies Allergies/Adverse Reactions: Allergies Allergy/AdvReac Type Severity Reaction Status Date / Time niacin Allergy Hives Verified 06/13/20 21:52 - Social History Does the pt smoke?: No Smoking Status: Never smoker Does the pt drink ETOH?: Yes Does the pt have substance abuse?: No - Immunizations Immunizations are current?: Yes Immunizations: TDAP >10years/unknown - POLST Patient has POLST: No PD ED PE NORMAL - General General: Alert and oriented X 3, No acute distress - HEENT HEENT: PERRL, EOMI - Derm Derm: Normal color, Warm and dry, Other (2 puncture wounds base of right ring finger ulnar side above MCP and 1 puncture wound in the webbing between the third and ring finger right hand. Patient has normal flexion extension against resistance. Mild swelling on dorsum of hand. No erythema. ) - Extremities Extremities: No deformity. No: No tenderness to palpate, Normal ROM s pain Results - Vitals Vitals: Vital Signs - 24 hr 06/13/20 21:49 Temperature 36.5 C Heart Rate 94 Respiratory 16 Rate Blood Pressure 140/89 H O2 Saturation 98 Oxygen O2 Source Room air - Rads (name of study) right hand Radiology: EMP read indepedently (No acute fracture dislocation or foreign body identified) PD MEDICAL DECISION MAKING - ED course Complexity details: reviewed results, considered differential, d/w patient ED course: 50-year-old male presents to the emergency department for evaluation of dog bite wounds to the right hand sustained this evening when he broke up a dog fight between his own animals. He does have 3 puncture wounds surrounding the right ring finger and mild swelling or erythema. The puncture wounds were cleansed thoroughly with soap and irrigated with saline. We will not close these wounds. My read on the x-ray did not reveal any broken bones or foreign body. Formal read pending. Patient will be given Augmentin here in the emergency department and advised Augmentin for prophylaxis at home. We will also recommend antibiotic ointment over the puncture wounds. He is advised to return to the emergency department immediately for evaluation if he has hand redness, increased pain red streaking or concerns of infection. Departure - Departure Disposition: 01 Home, Self Care Clinical Impression: Puncture wound, Animal bite with open wound Dog bite Qualifiers: Encounter type: initial encounter Qualified Code(s): W54.0XXA - Bitten by dog, initial encounter Condition: Stable Record reviewed to determine appropriate education?: Yes Instructions: ED Wound Puncture General, ED Animal Bite Prescriptions: Amox/Clav 875/125 [Augmentin] 1 each PO Q12H #20 tablet Comments: I hope your hand is healing well. Animal bite wounds carry a high risk of infection. It is very important that you take your antibiotics as directed. I would like you to thoroughly wash your hand and wounds 3 times a day with warm soapy water. Following that apply any antibiotic ointment to the wounds. If you develop hand redness, have increased pain, fevers or milky drainage from the puncture wounds please return immediately to the emergency department I do not see any broken bones or foreign bodies in your hand x-ray. If the radiologist finds otherwise you will be notified.
[2020-06-13] MEDS: AMOX/CLAV 875 MG/125 MG TABLET PO STA (22:05)
[2020-06-13] MEDS: BACITRACIN ZINC OINT 1 PACKET TOP STA (22:05)
--- NOTE | 2020-06-14 09:31 | XRAY Report ---
PROCEDURE: Hand 2 View RT INDICATIONS: dog bite TECHNIQUE: 2 views of the hand(s) acquired. COMPARISON: none FINDINGS: Bones: No acute fractures or dislocations. No suspicious bony lesions. Old fourth distal tuft fract ure. Soft tissues: No suspicious soft tissue calcifications. IMPRESSION: No visualized acute fracture or dislocation. However, occult injury cannot be excluded. Recommend [place] rt interval imaging follow-up in 7-10 days as clinically indicated for additional evaluation. Reviewed by: Juanita Acosta MD on 06/14/2020 9:29 AM PDT Approved by: Juanita Acosta MD on 06/14/2020 9:29 AM PDT Station ID: [id number]
== END 2020-06-13 22:21 | disposition home or self-care (01) ==
LOC: ED 21:42
DX: S61.451A Open bite of right hand, initial encounter (principal); W54.0XXA Bitten by dog, initial encounter; Y93.89 Activity, other specified; Y92.009 Unspecified place in unspecified non-institutional (private) residence as the place of occurrence of the external cause; I10 Essential (primary) hypertension; Z79.82 Long term (current) use of aspirin
CPT/HCPCS: 73120; 99283; A9270

== ENCOUNTER 2020-06-15 11:11 | Emergency (ER) | payer OTHER ==
[2020-06-15] MEDS ORDERED: SULFAMETH/TRIMETH DS 800/160 MG TABLET PO STA (11:36)
[2020-06-15] MEDS ORDERED: LIDOCAINE 1% 2 ML VIAL MC ONE (11:36)
[2020-06-15] MEDS ORDERED: IBUPROFEN 600 MG TABLET PO STA (11:36)
[2020-06-15] MEDS ORDERED: cefTRIAXone 1 GM VIAL IM STA (11:36)
--- NOTE | 2020-06-15 11:37 | ED Physician Documentation ---
PD HPI WOUND RECHECK - Stated complaint Stated Complaint: DOG BITE - Chief complaint Chief Complaint: Ext Problem - Histroy obtained from History obtained from: Patient - History of Present Illness Location: Right Hand Timing - onset: How many days ago (2) Associated symptoms: Redness, Swelling. No: Fever, Drainage Recently seen: Emergency Dept (seen 2 days ago after dogbite to hand, and Rx with Augmentin. Has had redness and swelling develop despite.) Review of Systems Constitutional: denies: Fever, Chills GI: denies: Nausea, Vomiting, Diarrhea Neurologic: denies: Focal weakness, Numbness PD PAST MEDICAL HISTORY - Past Medical History Cardiovascular: Hypertension, High cholesterol, [place] Respiratory: None, Sleep apnea Neuro: None Endocrine/Autoimmune: None GI: GERD : None HEENT: Chronic hearing loss Psych: Depression, Anxiety Musculoskeletal: Chronic back pain Derm: None - Past Surgical History Past Surgical History: Yes Cardiovascular: Coronary stent - Present Medications Home Medications: Ambulatory Orders Medication Instructions Recorded Confirmed Aspirin 81 mg PO DAILY 05/24/17 10/02/17 Atorvastatin Calcium 40 mg PO DAILY 05/24/17 10/02/17 Cholecalciferol (Vitamin D3) 1,000 unit PO DAILY 05/24/17 10/02/17 [Vitamin D3] Clopidogrel [Plavix] 75 mg PO DAILY 05/24/17 10/02/17 Cyanocobalamin (Vitamin B-12) 2,000 mcg PO DAILY 05/24/17 10/02/17 [Vitamin B-12] Fluoxetine HCl 20 mg PO DAILY 05/24/17 10/02/17 Pantoprazole Sodium [Protonix] 40 mg PO DAILY 05/24/17 10/02/17 atenoloL [Atenolol] 25 mg PO DAILY 05/24/17 10/02/17 Methocarbamol [Robaxin-750] 750 mg PO Q6H PRN #30 tablet 10/02/17 Mupirocin 1 applic TP TID #15 oint...g. 10/02/17 Oxycodone HCl/Acetaminophen 1 each PO Q6H PRN #20 tablet 10/02/17 [Percocet 7.5-325 mg Tablet] Sulfamethox/Trimeth 800/160 1 each PO BID #14 tablet 10/02/17 [Bactrim Ds 800/160] dexAMETHasone [Decadron] 4 mg PO DAILY #5 tablet 10/02/17 Methocarbamol [Robaxin-750] 750 mg PO Q6H PRN #20 tablet 02/01/18 Oxycodone HCl/Acetaminophen 1 - 2 tab PO Q4H PRN #15 tablet 02/01/18 [Percocet 5-325 mg Tablet] Albuterol Sulf [Ventolin Hfa 1 - 2 puffs INH Q4HR PRN #1 inhaler 12/02/19 Inhaler] Azithromycin [Zithromax] 250 mg PO DAILY #4 tablet 12/02/19 Benzonatate 200 mg PO TID PRN #20 capsule 12/02/19 predniSONE [Prednisone] 40 mg PO DAILY 3 Days #6 tablet 12/02/19 Furosemide [Lasix] 20 mg PO DAILY #7 tablet 02/05/20 Amox/Clav 875/125 [Augmentin] 1 each PO Q12H #20 tablet 06/13/20 Mupirocin 1 applic TP TID #15 g 06/15/20 Sulfamethox/Trimeth 800/160 1 each PO BID #14 tablet 06/15/20 [Bactrim Ds 800/160] - Allergies Allergies/Adverse Reactions: Allergies Allergy/AdvReac Type Severity Reaction Status Date / Time niacin Allergy Hives Verified 06/15/20 11:24 - Social History Does the pt smoke?: No Smoking Status: Never smoker Does the pt drink ETOH?: Yes Does the pt have substance abuse?: No - Immunizations Immunizations are current?: Yes Immunizations: TDAP >10years/unknown - POLST Patient has POLST: No PD ED PE NORMAL - Vitals Vital signs reviewed: Yes - General General: Alert and oriented X 3, No acute distress, Well developed/nourished - Derm Derm: Normal color, Warm and dry - Extremities Extremities: Other (right hand with redness and swelling at bite wounds mainly MCP soft tissue. No pain in forearm nor any red streaks. ) - Neuro Neuro: Alert and oriented X 3, No motor deficit, No sensory deficit Results - Vitals Vitals: Vital Signs - 24 hr 06/15/20 06/15/20 11:21 12:42 Temperature 36.6 C Heart Rate 85 72 Respiratory 18 16 Rate Blood Pressure 132/84 H 117/82 H O2 Saturation 98 98 Oxygen O2 Source Room air PD MEDICAL DECISION MAKING - ED course Complexity details: considered differential (hand wound with redness and swelling, no fluctuance. No pain with finger extension and no forearm pain. Does not seem tenosynovitic. However infection while on Augmentin, will add Staph coverage. ), d/w patient Departure - Departure Disposition: 01 Home, Self Care Clinical Impression: Wound infection Dog bite of right hand with infection Qualifiers: Encounter type: subsequent encounter Qualified Code(s): S61.451D - Open bite of right hand, subsequent encounter Condition: Stable Record reviewed to determine appropriate education?: Yes Instructions: ED Wound Check Laceration FU Infec Follow-Up: Ezio Purdy MD [Primary Care Provider] - Prescriptions: Sulfamethox/Trimeth 800/160 [Bactrim Ds 800/160] 1 each PO BID #14 tablet Mupirocin 1 applic TP TID #15 g Comments: Use a splint most the time to protect movement of the fingers. Keep the hand elevated and rested much of the time. Clean the wounds 2-3 times a day with soap and water and apply mupirocin antibiotic ointment. Continue the Augmentin and to add Bactrim antibiotic twice daily. Ibuprofen or naproxen if needed for pain and add Tylenol. Minimal use of the hand over the next several days to help reduce swelling and pain. Recheck if not improving well over the next few days. Forms: Activity restrictions Discharge Date/Time: 06/15/20 12:44
[2020-06-15 12:43] VITALS: BP 117/82
== END 2020-06-15 12:44 | disposition home or self-care (01) ==
LOC: ED 11:11
DX: S61.451A Open bite of right hand, initial encounter (principal); L08.9 Local infection of the skin and subcutaneous tissue, unspecified; W54.0XXA Bitten by dog, initial encounter; I10 Essential (primary) hypertension; Z79.02 Long term (current) use of antithrombotics/antiplatelets; Z79.82 Long term (current) use of aspirin
CPT/HCPCS: 96372; 99283; A9270

== ENCOUNTER 2020-07-07 12:31 | Inpatient (IN) | payer OTHER ==
[2020-07-07 13:01] LABS: BASOPHILS % (AUTO) 0.4 %; EOSINOPHILS # (AUTO) 0.5 10^3/uL (0.0-0.7); HGB - HEMOGLOBIN 17.1 g/dL (14.0-18.0); LYMPHOCYTES # (AUTO) 1.7 10^3/uL (1.5-3.5); LYMPHOCYTES % (AUTO) 16.9 %; MEAN CORPUSCULAR HEMOGLOBIN 30.2 pg (27.0-31.0); MEAN CORPUSCULAR HGB CONC 33.7 g/dL (32.0-36.0); MEAN CORPUSCULAR VOLUME 89.6 fL (80.0-94.0); MEAN PLATELET VOLUME 9.7 fL (7.4-11.4); MONOCYTES # (AUTO) 1.1 10^3/uL (0.0-1.0); MONOCYTES % (AUTO) 10.5 %; NEUTROPHILS # (AUTO) 6.9 10^3/uL (1.5-6.6); NEUTROPHILS % (AUTO) 66.8 %; PLT - PLATELET COUNT 257 10^3/uL (130-450); RED BLOOD COUNT 5.67 10^6/uL (4.70-6.10); RED CELL DISTRIBUTION WIDTH 12.4 % (12.0-15.0); WHITE BLOOD COUNT 10.3 x10^3/uL (4.8-10.8)
[2020-07-07 13:26] LABS: ALBUMIN 4.5 g/dL (3.2-5.5); ALBUMIN/GLOBULIN RATIO 1.3 (1.0-2.2); BILIRUBIN,TOTAL 1.4 mg/dL (0.2-1.0); CALCIUM 9.5 mg/dL (8.5-10.3); CREATININE 1.1 mg/dL (0.6-1.2); TOTAL PROTEIN 7.9 g/dL (6.7-8.2)
[2020-07-07] MEDS ORDERED: ONDANSETRON 4 MG/2 ML VIAL IVP STA (14:43)
[2020-07-07] MEDS ORDERED: SODIUM CHLORIDE 0.9% 1,000 ML IV STA (14:43)
[2020-07-07] MEDS ORDERED: IOVERSOL 320 100 ML VIAL IVP ONE ×2 (14:57→15:12)
--- NOTE | 2020-07-07 15:29 | ED Physician Documentation ---
PD HPI ABD PAIN - Stated complaint Stated Complaint: ABD PX - Chief complaint Chief Complaint: Abd Pain - History obtained from History obtained from: Patient - History of Present Illness Timing - onset: How many days ago (3) Timing - duration: Days (3) Timing - details: Gradual onset, Still present Quality: Cramping, Sharp, Stabbing, Fullness/distended, Pain Location: All over / everywhere, LLQ Improved by: Laying still, Position Worsened by: Eating, Moving, Breathing, Position, Palpation Associated symptoms: Nausea, Vomiting, Diarrhea Similar symptoms before: Has not had sx before Recently seen: Not recently seen - Additional information Additional information: Previously well 50-year-old male with a history of coronary artery disease and hypertension had some steak and mushrooms and peppers the night prior to beginning to feel ill. He began to feel ill the next day and he has had vomiting and diarrhea. He is developed abdominal pain and he has to lay in a certain position will have severe pain. He has a feeling of fullness in his abdomen and waves of pain. He had a hard sneeze and since then has pain in his groin bilaterally. He has not had fever and he has not had bleeding. Review of Systems Constitutional: denies: Fever Eyes: denies: Decreased vision Ears: denies: Ear pain Nose: denies: Rhinorrhea / runny nose, Congestion Throat: denies: Sore throat Cardiac: denies: Chest pain / pressure, Palpitations, Pedal edema, Calf pain Respiratory: denies: Dyspnea, Cough GI: reports: Abdominal Pain, Nausea, Vomiting, Diarrhea : denies: Dysuria, Frequency Skin: denies: Rash Musculoskeletal: denies: Neck pain, Back pain, Extremity pain Neurologic: denies: Generalized weakness, Focal weakness, Numbness PD PAST MEDICAL HISTORY - Past Medical History Past Medical History: Yes Cardiovascular: Hypertension, High cholesterol, [place] Respiratory: None, Sleep apnea Neuro: None Endocrine/Autoimmune: None GI: GERD : None HEENT: Chronic hearing loss Psych: Depression, Anxiety Musculoskeletal: Chronic back pain Derm: None - Past Surgical History Past Surgical History: Yes Cardiovascular: Coronary stent - Present Medications Home Medications: Ambulatory Orders Medication Instructions Recorded Confirmed Aspirin 81 mg PO DAILY 05/24/17 10/02/17 Atorvastatin Calcium 40 mg PO DAILY 05/24/17 10/02/17 Cholecalciferol (Vitamin D3) 1,000 unit PO DAILY 05/24/17 10/02/17 [Vitamin D3] Clopidogrel [Plavix] 75 mg PO DAILY 05/24/17 10/02/17 Cyanocobalamin (Vitamin B-12) 2,000 mcg PO DAILY 05/24/17 10/02/17 [Vitamin B-12] Fluoxetine HCl 20 mg PO DAILY 05/24/17 10/02/17 Pantoprazole Sodium [Protonix] 40 mg PO DAILY 05/24/17 10/02/17 atenoloL [Atenolol] 25 mg PO DAILY 05/24/17 10/02/17 Methocarbamol [Robaxin-750] 750 mg PO Q6H PRN #30 tablet 10/02/17 Mupirocin 1 applic TP TID #15 oint...g. 10/02/17 Oxycodone HCl/Acetaminophen 1 each PO Q6H PRN #20 tablet 10/02/17 [Percocet 7.5-325 mg Tablet] Sulfamethox/Trimeth 800/160 1 each PO BID #14 tablet 10/02/17 [Bactrim Ds 800/160] dexAMETHasone [Decadron] 4 mg PO DAILY #5 tablet 10/02/17 Methocarbamol [Robaxin-750] 750 mg PO Q6H PRN #20 tablet 02/01/18 Oxycodone HCl/Acetaminophen 1 - 2 tab PO Q4H PRN #15 tablet 02/01/18 [Percocet 5-325 mg Tablet] Albuterol Sulf [Ventolin Hfa 1 - 2 puffs INH Q4HR PRN #1 inhaler 12/02/19 Inhaler] Azithromycin [Zithromax] 250 mg PO DAILY #4 tablet 12/02/19 Benzonatate 200 mg PO TID PRN #20 capsule 12/02/19 predniSONE [Prednisone] 40 mg PO DAILY 3 Days #6 tablet 12/02/19 Furosemide [Lasix] 20 mg PO DAILY #7 tablet 02/05/20 Amox/Clav 875/125 [Augmentin] 1 each PO Q12H #20 tablet 06/13/20 Mupirocin 1 applic TP TID #15 g 06/15/20 Sulfamethox/Trimeth 800/160 1 each PO BID #14 tablet 06/15/20 [Bactrim Ds 800/160] - Allergies Allergies/Adverse Reactions: Allergies Allergy/AdvReac Type Severity Reaction Status Date / Time niacin Allergy Hives Verified 07/07/20 12:40 - Social History Does the pt smoke?: No Smoking Status: Never smoker Does the pt drink ETOH?: Yes Does the pt have substance abuse?: No - Immunizations Immunizations are current?: Yes Immunizations: TDAP >10years/unknown - POLST Patient has POLST: No PD ED PE NORMAL - Vitals Vital signs reviewed: Yes (tachy and hypertensive ) - General General: Alert and oriented X 3, Well developed/nourished, Other (laying on his side curled in the position appears to be in pain and moves slowly) - HEENT HEENT: Atraumatic, PERRL, EOMI - Neck Neck: Supple, no meningeal sign, No bony TTP - Cardiac Cardiac: No murmur, Other (tachy to 110) - Respiratory Respiratory: No respiratory distress, Clear bilaterally - Abdomen Abdomen: Other (rigid abdomen with generalized tenderness and tenderness to the lower abdomen. Tenderness to the right inguinal canal without obvious mass. 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, No motor deficit, No sensory deficit, Normal speech Eye Opening: Spontaneous Motor: Obeys Commands Verbal: Oriented GCS Score: 15 - Psych Psych: Normal mood, Other (flat affect .) Results - Vitals Vitals: Vital Signs - 24 hr 07/07/20 07/07/20 12:37 17:25 Temperature 37.0 C Heart Rate 122 H 84 Respiratory 14 18 Rate Blood Pressure 137/89 H 116/72 O2 Saturation 100 97 Oxygen O2 Source Room air - Labs Labs: Laboratory Tests 07/07/20 07/07/20 12:58 12:58 WBC 10.3 RBC 5.67 Hgb 17.1 Hct 50.8 MCV 89.6 MCH 30.2 MCHC 33.7 RDW 12.4 Plt Count 257 MPV 9.7 Neut # (Auto) 6.9 H Lymph # (Auto) 1.7 [place] # (Auto) 1.1 H Eos # (Auto) 0.5 Baso # (Auto) 0.0 Absolute Nucleated RBC 0.00 Nucleated RBC % 0.0 Sodium 138 Potassium 4.1 Chloride 100 L Carbon Dioxide 22 Anion Gap 16.0 H BUN 16 Creatinine 1.1 Estimated GFR (MDRD) 71 L Glucose 120 H Calcium 9.5 Total Bilirubin 1.4 H AST 20 ALT 41 Alkaline Phosphatase 77 Total Protein 7.9 Albumin 4.5 Globulin 3.4 Albumin/Globulin Ratio 1.3 Lipase 22 - Rads (name of study) CT ab/pel with Radiology: Prelim report reviewed (Impression: Prominently abnormal mid small bowel seen, with prominent wall thickening and mesenteric stranding. This is nonspecific, although please consider enteritis. Ischemia is possible, yet the superior mesenteric artery demonstrates an unremarkable appearance. ), Final report received, EMP read indepedently, See rad report (Continued rad interpretation please consider surgical consultation bilateral inguinal hernias are seen, with a right inguinal hernia containing fat and fluid in the left inguinal hernia containing only fat. Incidental note made of: small ventral hernia focal L5-S1 degenerative change.) PD MEDICAL DECISION MAKING - ED course Complexity details: reviewed old records, reviewed results, re-evaluated patient, considered differential, d/w patient ED course: 50-year-old male with an acute gastroenteritis appears ill and has a very tender abdomen and marked inflammation to the small intestine.He is administered intravenous saline and does not require pain medication.He will need several days of bowel rest and I am asking the hospitalist to hospitalize him. Departure - Departure Disposition: 66 [facility] DC/Xfer Clinical Impression: Dehydration, Gastroenteritis Inguinal hernia Qualifiers: Obstruction and gangrene presence: without obstruction or gangrene Laterality: bilateral Recurrence: not specified as recurrent Qualified Code(s): K40.20 - Bilateral inguinal hernia, without obstruction or gangrene, not specified as recurrent
--- NOTE | 2020-07-07 15:30 | CT Report ---
PROCEDURE: Abdomen/Pelvis W INDICATIONS: rigid abdomen, LUQ tender, right groin tender CONTRAST: IV CONTRAST: Optiray 320 ml: 100 PO CONTRAST: *NO PO CONTRAST TECHNIQUE: After the administration of nonionic IV contrast, 5 mm thick sections acquired from the diaphragms to the symphysis. 5 mm thick coronal and sagittal reformats were acquired. For radiation dose reducti on, the following was used: automated exposure control, adjustment of mA and/or kV according to cale ent size. COMPARISON: None. FINDINGS: Image quality: Excellent. ABDOMEN: Lung bases: Lung bases are clear. Heart size is normal. A small hiatal hernia is incidentally note d. Solid organs: Liver and spleen are normal in size and enhancement. Gallbladder wall does not appear thickened. Biliary system is non dilated. Pancreas enhances normally. No adrenal nodules. Kidn eys demonstrate normal size and enhancement, without hydronephrosis. Peritoneum and bowel: Prominent wall thickening is seen involving the midportion of the small bowel. Mesenteric stranding is seen. No findings of pneumatosis can be seen. No free air or significant free fluid can be seen. No significant colonic abnormality is seen. Nodes and vessels: No retroperitoneal or mesenteric adenopathy by size criteria. Aorta and inferior vena cava are normal in size. The SMA demonstrates a unremarkable appearance. The portal vein is pa tent. Miscellaneous: No ventral hernias. PELVIS: Genitourinary: Bladder wall thickness is normal. Miscellaneous: No inguinal adenopathy. There is a right inguinal hernia seen, which contains fat an d fluid. A mild fat-containing left inguinal hernia is also seen. Bones: No suspicious bony lesions. No vertebral body compression fractures. Focal L5-S1 degenerati ve change is seen. Milder degenerative changes are seen elsewhere. IMPRESSION: Prominently abnormal mid small bowel seen, with prominent wall thickening and mesenteric stranding. This is nonspecific, although please consider enteritis. Ischemia is possible, yet the [place] perior mesenteric artery demonstrates an unremarkable appearance. Please consider surgical consultation bilateral inguinal hernias are seen, with the right inguinal he rnia containing fat and fluid in the left inguinal hernia containing only fat. Incidental note is made of: Small ventral hernia Focal L5-S1 degenerative change Reviewed by: Hosea Diaz MD on 07/07/2020 2:28 PM [facility] Approved by: Hosea Diaz MD on 07/07/2020 2:28 PM [facility] Station ID: [id number]
[2020-07-07 17:26] LABS: GLUCOSE, URINE (UA) NEGATIVE (NEGATIVE); KETONES,URINE (UA) TRACE mg/dL (NEGATIVE); LEUKOCYTE ESTERASE, URINE NEGATIVE (NEGATIVE); NITRITE,URINE NEGATIVE (NEGATIVE); OCCULT BLOOD,URINE NEGATIVE (NEGATIVE); PH,URINE 6.5 PH (5.0-7.5); PROTEIN,URINE NEGATIVE (NEGATIVE); UROBILINOGEN,URINE 0.2 (NORMAL) E.U./dL (NORMAL)
[2020-07-07 17:31] LABS: BILIRUBIN,URINE NEGATIVE (NEGATIVE); CLARITY,URINE CLEAR (CLEAR); ICTOTEST,URINE NEGATIVE
[2020-07-07] MEDS: HYDROmorphone 1 MG/ML CARPUJECT IVP PRN ×2 (18:34→23:09)
[2020-07-07] MEDS: D5NS W/20 MEQ KCL 1,000 ML IV SCH (19:00)
[2020-07-07] MEDS: ONDANSETRON 4 MG/2 ML VIAL IVP PRN (19:30)
--- NOTE | 2020-07-07 19:38 | CONSULTATION NOTE ---
Referring Provider Name of Referring Provider:: Dr. Trevino Consult Date: 07/08/20 Chief Complaint - Chief Complaint Chief Complaint: Abdominal discomfort and bilateral hernias History of Present Illness - Admitted From Admitted From:: HOME - History Obtained From Records Reviewed: EMR History obtained from: PATIENT Exam Limitations: NONE - History of Present Illness HPI Comment/Other: 50-year-old male presenting with severe abdominal pain, worse over the right groin/inguinal region. I was asked to see secondary to imaging consistent with bilateral inguinal hernias, fat-containing. At the time of my initial evaluation the patient was without any significant discomfort and no appreciable hernias on exam. Repeat imaging was recommended. He reports ongoing discomfort however denies any historic palpable bulges or other concerning features consistent with symptomatic inguinal hernia disease. Repeat imaging continued to reveal persistent herniation fat, right greater than left. Please see below subsequent exam for evaluation. Patient has completed a course of antibiotics for dog bite with no associated febrile episodes and normal white count since admission. Patient denies any sick contacts, however he does have recent antibiotic secondary to go bite which could have contributed to his change in bowel function. History - Past Medical History Cardiovascular: reports: Hypertension, High cholesterol, [place] Respiratory: reports: None, Sleep apnea Neuro: reports: None Endocrine/Autoimmune: reports: None GI: reports: GERD : reports: None HEENT: reports: Chronic hearing loss Psych: reports: Depression, Anxiety Musculoskeletal: reports: Chronic back pain Derm: reports: None MRSA Hx?: No - Past Surgical History Cardiovascular: reports: Coronary stent - POLST Patient has POLST: No Meds/Allgy - Home Medications Home Medications: Ambulatory Orders Medication Instructions Recorded Confirmed Atorvastatin Calcium 40 mg PO DAILY 05/24/17 07/09/20 Amlodipine Besylate [Norvasc] 2.5 mg PO DAILY 07/08/20 07/09/20 Chlorthalidone 12.5 mg PO DAILY 07/08/20 07/09/20 Fluoxetine HCl 40 mg PO DAILY 07/08/20 07/09/20 Pantoprazole [Protonix] 40 mg PO DAILY 07/08/20 07/09/20 Trazodone HCl 150 mg PO QPM 07/08/20 07/09/20 - Allergies Allergies/Adverse Reactions: Allergies Allergy/AdvReac Type Severity Reaction Status Date / Time niacin Allergy Hives Verified 07/07/20 12:40 Review of Systems - Constitutional Constitutional: reports: Fatigue - Gastrointestinal Gastrointestinal: reports: Abdominal pain, Abdominal distention, Other (Right inguinal pain) Exam - Vital Signs Vital Signs: Vital Signs x48h Temp Pulse Pulse Resp BP BP Pulse Ox 07/07/20 18:37 37.0 C 83 21 130/84 H 97 07/07/20 17:25 84 18 116/72 97 07/07/20 12:37 37.0 C 122 H 14 137/89 H 100 - Physical Exam General Appearance: positive: Alert, Mild distress Eyes Bilateral: positive: Normal inspection, PERRL, EOMI ENT: positive: ENT inspection nml, Pharynx nml Neck: positive: Nml inspection Respiratory: positive: Chest non-tender, No respiratory distress, Breath sounds nml. negative: Wheezes, Rales, Rhonchi Cardiovascular: positive: Regular rate & rhythm, No murmur Abdomen: positive: Tenderness, Other (Left inguinal hernia with no significant contents no significant herniation with Valsalva. Right inguinal hernia with what appears to be incarcerated fat on July 09 at the time of the subsequent evaluation with pain and discomfort. No generalized abdominal pain, no rebound no guarding.). negative: Guarding, Rebound Skin: positive: Color nml Extremities: positive: Non-tender, Full ROM, Nml appearance Neurologic/Psychiatric: positive: Oriented x3, CN's nml (2-12), Motor nml, Sensation nml Conclusion/Plan - Diagnosis Diagnosis: 1. Left inguinal hernia, reducible. 2. Right incarcerated inguinal hernia, fat-containing. 3. Likely enteritis, infectious. 4. Persistent right groin pain - Plan Plan: On initial evaluation the patient was without any bilateral inguinal herniation, no palpable fat either at rest or with Valsalva - this was on the day of July 08 at the time of the patient's initial evaluation. Additional imaging was recommended to evaluate further. On the day subsequent, following the patient's repeat imaging there was a palpable bulge on the right which was attempted to be reduced and was unable to be addressed. This was on the evening of July 09. At this time consistent with the patient's persistent symptoms we offered possible operative intervention. In the setting of persistent symptomatology on imaging and most notably and significantly on physical exam and persistent pain the patient is candidate to proceed with urgent repair. Open right inguinal hernia is indicated plan to use mesh given his size and the degree of his exertional activity. Patient was advised of the risks and benefits associated with this. With regard to the left would defer any operative intervention at this time given that this is most likely an elective intervention. Also we would probably prefer to do a more extensive work-up and see if his pain resolves in the long- term from his right intervention. We will consider diagnostic laparoscopy to evaluate abdominal contents in the setting of enteritis which could potentially have been a consequence of herniation however unlikely given the time since presentation and improvement overall of his generalized abdominal pain. Plan is to proceed with urgent repair in the a.m., maintain n.p.o., and will perform open right inguinal hernia repair possible left and possible diagnostic laparoscopy. Risk and benefit discussed questions answered. - Lab Results Fish Bones: 07/10/20 05:25 07/10/20 05:25 - Diagnostic Imaging Results Diagnostic Imaging Results: positive: Final report reviewed Diagnostic Imaging Results Comments: Impression CT abdomen pelvis July 08: 1. Mild prominence of several loops of small bowel with mild wall thickening with nonspecific specific enteritis. Finding not definitively changed compared to 07/07/2020 2. Bilateral fat-containing inguinal hernias. Mild inflammatory stranding noted in the right inguinal hernia fat which is massively changed compared to 07/07/2020. Impression CT abdomen pelvis July 07: 1. Prominently abnormal mid small bowel seen with prominent wall thickening and mesenteric stranding this is nonspecific although please consider enteritis. Ischemia is possibly at the superior mesenteric artery demonstrates an unremarkable appearance. 2. Please consider surgical consultation bilateral inguinal hernias are seen, with a right inguinal hernia containing fat and fluid in the left inguinal hernia containing only fat.
--- NOTE | 2020-07-07 20:25 | HISTORY & PHYSICAL EXAMINATION ---
Chief Complaint - Chief Complaint Chief Complaint: abdominal pain History of Present Illness - Admitted From Admitted From:: [facility] ED - History Obtained From Records Reviewed: Yes History obtained from: Patient - History of Present Illness HPI Comment/Other: Patient is a 50-year-old male who presented to the ED with severe abdominal pain. This is worse in the bilateral groin area. The pain is made worse when pressure is applied to his abdomen when laying down, when he coughs sneezes or urinates. His symptoms started on Thursday. He denied chest pain, dyspnea, nausea, vomiting, fever or chills. Work-up in the ED included a CT of the abdomen pelvis which showed prominently abnormal mid small bowel with prominent wall thickening and mesenteric stranding. It also showed bilateral inguinal hernias with a right inguinal hernia containing fat and fluid while the left inguinal hernia containing fat only. A surgical consult was advised. As a result the patient was presented for admission for further management. On a separate note the patient recently completed a course of Augmentin and Bactrim after a dogbite History - Past Medical History Cardiovascular: reports: Hypertension, High cholesterol, Coronary artery disease, CO Respiratory: reports: None, Sleep apnea Neuro: reports: None Endocrine/Autoimmune: reports: None GI: reports: GERD : reports: None HEENT: reports: Chronic hearing loss Psych: reports: Depression, Anxiety Musculoskeletal: reports: Chronic back pain Derm: reports: None MRSA Hx?: No - Past Surgical History Cardiovascular: reports: Coronary stent HEENT: reports: Rhinoplasty - Family & Social History Family History Comment/Other: Patient's father had significant coronary artery disease. He had history of CABG x5. He at age 67. Patient's mother has hypothyroidism. The patient's daughter has GERD Living arrangement: At home Living Situation: With family Social History Notes: He quit smoking cigarettes 38 years ago. He smoked for 20 years about 1 pack/day. He drinks alcohol occasionally. He denies any recreational substance use. - POLST Patient has POLST: No POLST Status: Full Code Meds/Allgy - Home Medications Home Medications: Ambulatory Orders Medication Instructions Recorded Confirmed Aspirin 81 mg PO DAILY 05/24/17 10/02/17 Atorvastatin Calcium 40 mg PO DAILY 05/24/17 10/02/17 Cholecalciferol (Vitamin D3) 1,000 unit PO DAILY 05/24/17 10/02/17 [Vitamin D3] Clopidogrel [Plavix] 75 mg PO DAILY 05/24/17 10/02/17 Cyanocobalamin (Vitamin B-12) 2,000 mcg PO DAILY 05/24/17 10/02/17 [Vitamin B-12] Fluoxetine HCl 20 mg PO DAILY 05/24/17 10/02/17 Pantoprazole Sodium [Protonix] 40 mg PO DAILY 05/24/17 10/02/17 atenoloL [Atenolol] 25 mg PO DAILY 05/24/17 10/02/17 Methocarbamol [Robaxin-750] 750 mg PO Q6H PRN #30 tablet 10/02/17 Mupirocin 1 applic TP TID #15 oint...g. 10/02/17 Oxycodone HCl/Acetaminophen 1 each PO Q6H PRN #20 tablet 10/02/17 [Percocet 7.5-325 mg Tablet] Sulfamethox/Trimeth 800/160 1 each PO BID #14 tablet 10/02/17 [Bactrim Ds 800/160] dexAMETHasone [Decadron] 4 mg PO DAILY #5 tablet 10/02/17 Methocarbamol [Robaxin-750] 750 mg PO Q6H PRN #20 tablet 02/01/18 Oxycodone HCl/Acetaminophen 1 - 2 tab PO Q4H PRN #15 tablet 02/01/18 [Percocet 5-325 mg Tablet] Albuterol Sulf [Ventolin Hfa 1 - 2 puffs INH Q4HR PRN #1 inhaler 12/02/19 Inhaler] Azithromycin [Zithromax] 250 mg PO DAILY #4 tablet 12/02/19 Benzonatate 200 mg PO TID PRN #20 capsule 12/02/19 predniSONE [Prednisone] 40 mg PO DAILY 3 Days #6 tablet 12/02/19 Furosemide [Lasix] 20 mg PO DAILY #7 tablet 02/05/20 Amox/Clav 875/125 [Augmentin] 1 each PO Q12H #20 tablet 06/13/20 Mupirocin 1 applic TP TID #15 g 06/15/20 Sulfamethox/Trimeth 800/160 1 each PO BID #14 tablet 06/15/20 [Bactrim Ds 800/160] - Allergies Allergies/Adverse Reactions: Allergies Allergy/AdvReac Type Severity Reaction Status Date / Time niacin Allergy Hives Verified 07/07/20 12:40 Review of Systems - Constitutional Constitutional: denies: Fatigue, Fever, Chills - Eyes Eyes: denies: Pain - Ears, Nose & Throat Ears, Nose & Throat: denies: Ear pain - Cardiovascular Cariovascular: denies: Irregular heart rate, Palpitations, Chest pain, Edema, Lightheadedness, Syncope, Exertional dyspnea - Respiratory Respiratory: denies: Cough, SOB at rest, SOB with exertion - Gastrointestinal Gastrointestinal: reports: Abdominal pain, Nausea, Reflux/heartburn. denies: Abdominal distention, Vomiting - Genitourinary Genitourinary: denies: Dysuria, Frequency, Urgency, Hematuria, Incontinence - Musculoskeletal Musculoskeletal: denies: Muscle pain, Back pain, Muscle aches - Integumentary Integumentary: denies: Rash, Pruritis, Lesions - Neurological Neurological: denies: General weakness, Headache - Psychiatric Psychiatric: denies: Depression, Anxiety - Endocrine Endocrine: denies: Polyuria, Polydypsia - Hematologic/Lymphatic Hematologic/Lymphatic: denies: Anemia, Bruising, Petechiae Prior Level of Functionality: Patient is independent of activities of daily living. Exam - Vital Signs Vital Signs: Vital Signs x48h Temp Pulse Pulse Resp BP BP Pulse Ox 07/07/20 18:37 37.0 C 83 21 130/84 H 97 07/07/20 17:25 84 18 116/72 97 07/07/20 12:37 37.0 C 122 H 14 137/89 H 100 - Physical Exam General Appearance: positive: Alert, Moderate distress, Severe distress Eyes Bilateral: positive: PERRL, EOMI ENT: positive: No signs of dehydration Neck: positive: No JVD, Trachea midline Respiratory: positive: Chest non-tender, No respiratory distress, Breath sounds nml. negative: Wheezes, Rales, Rhonchi Cardiovascular: positive: Regular rate & rhythm, No murmur Abdomen: positive: Nml bowel sounds, No distention, Tenderness, Other (inguinal hernias bilaterally). negative: Guarding, Rebound Back: positive: Nml inspection Skin: positive: Color nml, No rash, Warm, Other (Extensive tattoos) Extremities: positive: Non-tender, Full ROM, Nml appearance, No pedal edema Neurologic/Psychiatric: positive: Oriented x3, Mood/affect nml Conclusion/Plan - Problem List (1) Inguinal hernia Conclusion/Plan: Patient made n.p.o. IV hydration with D5 normal saline with 20 mEq of potassium. Pain management with Dilaudid 1 mg every 4 hours as needed. Zofran IV every 4 hours as needed for nausea. Dr. Cerna with general surgery was consulted and will see the patient. Qualifiers: Obstruction and gangrene presence: without obstruction or gangrene Laterality: bilateral Recurrence: not specified as recurrent Qualified Code(s): K40.20 - Bilateral inguinal hernia, without obstruction or gangrene, not specified as recurrent (2) Gastroenteritis Conclusion/Plan: Likely viral in nature. Conservative management. IV hydration. Bowel rest. (3) Hx of coronary artery disease Conclusion/Plan: Patient has history of CO x2 at age 41 and 46 respectively. He has 1 stent. Patient is on atenolol 25 mg p.o. daily. He also takes atorvastatin 40 mg p.o. daily. He is on a baby aspirin daily. Resume his medications once verified. A 12-lead EKG showed normal sinus rhythm (4) Hyperlipidemia Conclusion/Plan: On atorvastatin 40 mg p.o. daily. (5) Hypertension Conclusion/Plan: On atenolol and chlorthalidone. We will continue once verified. (6) GERD (gastroesophageal reflux disease) Conclusion/Plan: Tonics 40 mg IV daily ordered. - Lab Results Fish Bones: 07/08/20 05:45 07/08/20 05:45 Core Measures - Anticipated LOS I expect patient to be DC'd or transferred within 96 hours.: Yes - DVT/VTE - Prophylaxis VTE/DVT Device ordered at admit?: Yes
--- NOTE | 2020-07-07 21:32 | XRAY Report ---
PROCEDURE: Chest 2 View X-Ray INDICATIONS: pre-op eval TECHNIQUE: 2 views of the chest. COMPARISON: 02/05/2020. FINDINGS: Surgical changes and devices: None. Lungs and pleura: No pleural effusions or pneumothorax. Lungs are clear. Mediastinum: Mediastinal contours are normal. Heart size is normal. Bones and chest wall: No suspicious bony abnormalities. Soft tissues appear unremarkable. IMPRESSION: 1. No acute cardiopulmonary disease. Reviewed by: Yohannes Pedraza MD on 07/07/2020 9:30 PM PDT Approved by: Yohannes Pedraza MD on 07/07/2020 9:30 PM PDT Station ID: [id number]
[2020-07-07] MEDS: SODIUM CHLORIDE FLUSH 0.9% 10 ML SYRINGE IVP PRN (23:10)
[2020-07-08] MEDS: SODIUM CHLORIDE FLUSH 0.9% 10 ML SYRINGE IVP SCH ×3 (01:02→10:07)
[2020-07-08] MEDS: SODIUM CHLORIDE FLUSH 0.9% 10 ML SYRINGE IVP PRN ×6 (03:21→21:36)
[2020-07-08] MEDS: HYDROmorphone 1 MG/ML CARPUJECT IVP PRN ×5 (03:22→21:36)
[2020-07-08] MEDS: D5NS W/20 MEQ KCL 1,000 ML IV SCH (04:56)
[2020-07-08 05:52] LABS: BASOPHILS % (AUTO) 0.3 %; EOSINOPHILS # (AUTO) 0.5 10^3/uL (0.0-0.7); EOSINOPHILS % (AUTO) 8.1 %; HGB - HEMOGLOBIN 13.3 g/dL (14.0-18.0); LYMPHOCYTES # (AUTO) 1.5 10^3/uL (1.5-3.5); LYMPHOCYTES % (AUTO) 25.8 %; MEAN CORPUSCULAR HEMOGLOBIN 29.7 pg (27.0-31.0); MEAN CORPUSCULAR HGB CONC 32.8 g/dL (32.0-36.0); MEAN CORPUSCULAR VOLUME 90.6 fL (80.0-94.0); MEAN PLATELET VOLUME 9.8 fL (7.4-11.4); MONOCYTES # (AUTO) 0.7 10^3/uL (0.0-1.0); MONOCYTES % (AUTO) 11.9 %; NEUTROPHILS # (AUTO) 3.2 10^3/uL (1.5-6.6); NEUTROPHILS % (AUTO) 53.7 %; PLT - PLATELET COUNT 163 10^3/uL (130-450); RED BLOOD COUNT 4.48 10^6/uL (4.70-6.10); RED CELL DISTRIBUTION WIDTH 12.3 % (12.0-15.0); WHITE BLOOD COUNT 5.9 x10^3/uL (4.8-10.8)
[2020-07-08 06:05] LABS: CALCIUM 8.4 mg/dL (8.5-10.3); CREATININE 0.9 mg/dL (0.6-1.2)
[2020-07-08] MEDS: PANTOPRAZOLE 40 MG VIAL IVP SCH (06:42)
[2020-07-08] MEDS: ONDANSETRON 4 MG/2 ML VIAL IVP PRN (10:07)
[2020-07-08] MEDS ORDERED: polyethylene glycoL 3350 17 GM PACKET PO ONE (17:00)
--- NOTE | 2020-07-08 19:39 | PROVIDER PROGRESS NOTE ---
Assessment/Plan - Problem List (1) Inguinal hernia Qualifiers: Obstruction and gangrene presence: without obstruction or gangrene Laterality: bilateral Recurrence: not specified as recurrent Qualified Code(s): K40.20 - Bilateral inguinal hernia, without obstruction or gangrene, not specified as recurrent Assessment/Plan: Patient's pain is mild. CT of the abdomen/pelvis without contrast was repeated. It showed mild inflammatory stranding in the right inguinal herniated fat. Continue pain management. Await general surgery input. (2) Gastroenteritis Assessment/Plan: Suspect viral cause. Patient reports some improvement in abdominal pain. He rates his pain 2 out of 10 currently. Patient has not had a bowel movement since admission which has been 24 hours. We will give an anticonstipation med. Diet was advanced to clear liquids today. We will continue to advance diet as tolerated. C. difficile test and stool cultures had been ordered but were subsequently discontinued given the patient's lack of a bowel movement in over [address] scan indicated mild prominence of loops of bowel and mild wall thickening (3) Hx of coronary artery disease Assessment/Plan: On a baby aspirin, atorvastatin, atenolol and amlodipine. (4) Hyperlipidemia Assessment/Plan: On atorvastatin 40 mg p.o. daily (5) Hypertension Assessment/Plan: Patient's amlodipine and atenolol resumed. (6) GERD (gastroesophageal reflux disease) Assessment/Plan: On Protonix - Current Meds Current Meds: Current Medications Generic Name Dose Route Start Last Admin Trade Name Freq PRN Reason Stop Dose Admin Hydromorphone HCl 1 mg 07/07/20 17:46 07/08/20 17:03 Dilaudid Inj Carp IVP 1 mg Q4HR PRN Administration PAIN Ondansetron HCl 4 mg 07/07/20 17:46 07/08/20 10:07 Zofran Inj IVP 4 mg Q4HR PRN Administration Nausea / Vomiting Pantoprazole Sodium 40 mg 07/08/20 07:00 07/08/20 06:42 Protonix IVP 40 mg QDAC MARGARET Administration Sodium Chloride 10 ml 07/07/20 20:18 07/08/20 17:03 Normal Saline Flush 0.9% IVP 10 ml PRN PRN Administration NEEDED PER PROVIDER ORDERS Sodium Chloride 10 ml 07/08/20 01:00 07/08/20 10:07 Normal Saline Flush 0.9% IVP 10 ml 0100,0900,1700 MARGARET Administration - Lab Result Fish Bone Diagrams: 07/09/20 05:12 07/09/20 05:12 - Additional Planning My Orders: My Active Orders 07/07/20 20:18 Activity Orders [RC] Q2HR IO [RC] IOSHIFT Initiate Bowel Care Protocol [RC] .protocol Initiate Line Care Protocol [RC] QSHIFT Initiate Personal Care Protoco [RC] .protocol Oxygen Therapy [RC] Routine Vital Signs [RC] 0800,1600,0000 Sodium Chloride Flush 0.9% [Normal Saline Flush 0.9%] 10 ml IVP PRN PRN Code Status [OTHERS] Routine Condition of Patient [OTHERS] Routine DVT Prophylaxis [OTHERS] Routine 07/07/20 20:22 SCDs [RC] QSHIFT 07/08/20 C DIFF PCR Routine CULTURE, STOOL [] Routine 07/08/20 01:00 Sodium Chloride Flush 0.9% [Normal Saline Flush 0.9%] 10 ml IVP 0100,0900,1700 07/08/20 07:00 Pantoprazole [Protonix] 40 mg IVP QDAC 07/09/20 05:00 BMP - BASIC METABOLIC PANEL [CHEM] DAILYLAB CBC - COMP BLD CT W/AUTO DIFF [HEME] DAILYLAB 07/10/20 05:00 BMP - BASIC METABOLIC PANEL [CHEM] DAILYLAB CBC - COMP BLD CT W/AUTO DIFF [HEME] DAILYLAB Subjective - Subjective Patient Reports: Other (Resting comfortably in bed. Rates his pain 2 out of 10. He has not had a bowel movement in the past 24 hours. His diet was advanced to clear liquids today. Tolerating well. He denies chest pain, dyspnea, nausea, vomiting, fever or chills.) Objective Vital Signs: Vital Signs - 24 hr 07/08/20 07/08/20 07/08/20 00:00 08:06 16:00 Temperature 36.6 C 36.3 C L 36.6 C Heart Rate [ 67 60 64 Brachial] Respiratory 16 16 16 Rate Blood Pressure 121/77 104/68 125/87 H [Left Brachial artery] O2 Saturation 95 95 97 Oxygen O2 Source Room air I&O (Last 24 Hrs): Intake and Output Totals x24h 07/06/20 07/07/20 07/08/20 23:59 23:59 23:59 Intake Total 1000 1960.000 Output Total 350 725 Balance 650 1235.000 General: Alert, Oriented x3, Mild distress, Moderate distress HEENT: PERRLA, EOMI Neck: No JVD Neuro: Alert, Oriented Times 3 Cardiovascular: Regular rate Respiratory: Chest non-tender, No respiratory distress, Wheezes (mild) Abdomen: Normal bowel sounds, Soft Extremities: No cyanosis, No edema Skin: No rashes - Results Results: Laboratory Results WBC 5.9 x10^3/uL (4.8-10.8) 07/08/20 05:45 RBC 4.48 10^6/uL (4.70-6.10) L 07/08/20 05:45 Hgb 13.3 g/dL (14.0-18.0) L 07/08/20 05:45 Hct 40.6 % (42.0-52.0) L 07/08/20 05:45 MCV 90.6 fL (80.0-94.0) 07/08/20 05:45 MCH 29.7 pg (27.0-31.0) 07/08/20 05:45 MCHC 32.8 g/dL (32.0-36.0) 07/08/20 05:45 RDW 12.3 % (12.0-15.0) 07/08/20 05:45 Plt Count 163 10^3/uL (130-450) 07/08/20 05:45 MPV 9.8 fL (7.4-11.4) 07/08/20 05:45 Neut # (Auto) 3.2 10^3/uL (1.5-6.6) 07/08/20 05:45 Lymph # (Auto) 1.5 10^3/uL (1.5-3.5) 07/08/20 05:45 [place] # (Auto) 0.7 10^3/uL (0.0-1.0) 07/08/20 05:45 Eos # (Auto) 0.5 10^3/uL (0.0-0.7) 07/08/20 05:45 Baso # (Auto) 0.0 10^3/uL (0.0-0.1) 07/08/20 05:45 Absolute Nucleated RBC 0.00 x10^3/uL 07/08/20 05:45 Nucleated RBC % 0.0 /100WBC 07/08/20 05:45 Sodium 140 mmol/L (135-145) 07/08/20 05:45 Potassium 3.9 mmol/L (3.5-5.0) 07/08/20 05:45 Chloride 105 mmol/L (101-111) 07/08/20 05:45 Carbon Dioxide 29 mmol/L (21-32) 07/08/20 05:45 Anion Gap 6.0 (6-13) 07/08/20 05:45 BUN 14 mg/dL (6-20) 07/08/20 05:45 Creatinine 0.9 mg/dL (0.6-1.2) 07/08/20 05:45 Estimated GFR (MDRD) 89 (>89) 07/08/20 05:45 Glucose 105 mg/dL (70-100) H 07/08/20 05:45 Calcium 8.4 mg/dL (8.5-10.3) L 07/08/20 05:45 Total Bilirubin 1.4 mg/dL (0.2-1.0) H 07/07/20 12:58 AST 20 IU/L (10-42) 07/07/20 12:58 ALT 41 IU/L (10-60) 07/07/20 12:58 Alkaline Phosphatase 77 IU/L (42-121) 07/07/20 12:58 Total Protein 7.9 g/dL (6.7-8.2) 07/07/20 12:58 Albumin 4.5 g/dL (3.2-5.5) 07/07/20 12:58 Globulin 3.4 g/dL (2.1-4.2) 07/07/20 12:58 Albumin/Globulin Ratio 1.3 (1.0-2.2) 07/07/20 12:58 Lipase 22 U/L (22-51) 07/07/20 12:58 Urine Color YELLOW 07/07/20 14:49 Urine Clarity CLEAR (CLEAR) 07/07/20 14:49 Urine pH 6.5 PH (5.0-7.5) 07/07/20 14:49 Ur Specific [place] 1.010 (1.002-1.030) 07/07/20 14:49 Urine Protein NEGATIVE mg/dL (NEGATIVE) 07/07/20 14:49 Urine Glucose (UA) NEGATIVE mg/dL (NEGATIVE) 07/07/20 14:49 Urine Ketones TRACE mg/dL (NEGATIVE) 07/07/20 14:49 Urine Occult Blood NEGATIVE (NEGATIVE) 07/07/20 14:49 Urine Nitrite NEGATIVE (NEGATIVE) 07/07/20 14:49 Urine Bilirubin NEGATIVE (NEGATIVE) 07/07/20 14:49 Urine Urobilinogen 0.2 (NORMAL) E.U./dL (NORMAL) 07/07/20 14:49 Ur Leukocyte Esterase NEGATIVE (NEGATIVE) 07/07/20 14:49 Ur Microscopic Review NOT INDICATED 07/07/20 14:49 Urine Culture Comments NOT INDICATED 07/07/20 14:49 ABX Reporting Has patient been on IV antibiotics over the past 48 hours?: No
[2020-07-08] MEDS ORDERED: LACTULOSE 10 GM /15 ML UDC PO STA (19:49)
--- NOTE | 2020-07-08 21:05 | CT Report ---
PROCEDURE: Abdomen/Pelvis WO INDICATIONS: bilateral inguinal hernia TECHNIQUE: Noncontrast 5 mm thick sections acquired from the diaphragms to the symphysis. 5 mm coronal and sagi ttal reformats were then performed. For radiation dose reduction, the following was used: automated exposure control, adjustment of mA and/or kV according to patient size. COMPARISON: None. FINDINGS: Image quality: Excellent. ABDOMEN: Lung bases: Lung bases are clear. Heart size is normal. Solid organs: Liver and spleen are normal in size. Gallbladder Pancreas is normal in contours. N o adrenal nodules. Kidneys are normal in size, without hydronephrosis or nephrolithiasis. Peritoneum and bowel: Mild distention of several loops of small bowel with mild wall thickening is re demonstrated. No free air. The appendix is normal. Trace free fluid noted in the lower pelvis. Nodes and vessels: No retroperitoneal or mesenteric adenopathy by size criteria. Aorta and inferior vena cava are normal in caliber. Scattered atherosclerotic calcifications are noted in the abdominal and pelvic vasculature. Miscellaneous: No ventral hernias. PELVIS: Genitourinary: Bladder wall thickness is normal. Miscellaneous: No inguinal adenopathy. Small bilateral fat-containing inguinal hernias right greater than left. Mild inflammatory stranding noted in the right inguinal herniated fat. Bones: No suspicious bony lesions. No vertebral body compression fractures. Spine degenerative disc disease and facet arthropathy are noted. IMPRESSION: 1. Mild prominence of several loops of small bowel with mild wall thickening with nonspecific neuriti s. Finding not definitely changed compared to 07/07/2020. 2. Bilateral fat-containing inguinal hernias. Mild inflammatory stranding noted in the right inguinal herniated fat which is massively changed compared to 07/07/2020. Reviewed by: Luma Hernandez MD, PhD on 07/08/2020 9:04 PM PDT Approved by: Luma Hernandez MD, PhD on 07/08/2020 9:04 PM PDT Station ID: [id number]
[2020-07-08] MEDS: ATORVASTATIN 40 MG TABLET PO SCH (21:36)
[2020-07-09] MEDS: SODIUM CHLORIDE FLUSH 0.9% 10 ML SYRINGE IVP SCH ×4 (00:26→23:47)
[2020-07-09] MEDS: HYDROmorphone 1 MG/ML CARPUJECT IVP PRN ×3 (01:21→21:20)
[2020-07-09 05:30] LABS: BASOPHILS % (AUTO) 0.4 %; EOSINOPHILS # (AUTO) 0.5 10^3/uL (0.0-0.7); EOSINOPHILS % (AUTO) 8.9 %; HGB - HEMOGLOBIN 13.8 g/dL (14.0-18.0); LYMPHOCYTES # (AUTO) 1.5 10^3/uL (1.5-3.5); LYMPHOCYTES % (AUTO) 27.3 %; MEAN CORPUSCULAR HEMOGLOBIN 29.7 pg (27.0-31.0); MEAN CORPUSCULAR HGB CONC 33.3 g/dL (32.0-36.0); MEAN CORPUSCULAR VOLUME 89.4 fL (80.0-94.0); MEAN PLATELET VOLUME 9.7 fL (7.4-11.4); MONOCYTES # (AUTO) 0.6 10^3/uL (0.0-1.0); MONOCYTES % (AUTO) 10.9 %; NEUTROPHILS # (AUTO) 2.8 10^3/uL (1.5-6.6); NEUTROPHILS % (AUTO) 52.3 %; PLT - PLATELET COUNT 171 10^3/uL (130-450); RED BLOOD COUNT 4.64 10^6/uL (4.70-6.10); RED CELL DISTRIBUTION WIDTH 12.1 % (12.0-15.0); WHITE BLOOD COUNT 5.4 x10^3/uL (4.8-10.8)
[2020-07-09] MEDS: PANTOPRAZOLE 40 MG VIAL IVP SCH (05:32)
[2020-07-09] MEDS: SODIUM CHLORIDE FLUSH 0.9% 10 ML SYRINGE IVP PRN (05:33)
[2020-07-09 05:40] LABS: CALCIUM 8.6 mg/dL (8.5-10.3); CREATININE 0.8 mg/dL (0.6-1.2)
[2020-07-09] MEDS: ASPIRIN EC 81 MG TABLET PO SCH (09:15)
[2020-07-09] MEDS: oxyCODONE 5 MG TABLET PO PRN ×4 (09:15→23:47)
[2020-07-09] MEDS: atenoloL 25 MG TABLET PO SCH (09:15)
[2020-07-09] MEDS: amLODIPine 5 MG TABLET PO SCH (09:17)
--- NOTE | 2020-07-09 12:44 | PHARMACY PROGRESS NOTE ---
- Best Possible Medication History Admit Date and Time: 07/07/20 1745 Processed by: Pharmacy Medication History completed: Yes Patient Interview: Completed Secondary Source(s): Physician records, Pharmacy records, Insurance records (PATIENT INTERVIEWED BY TRIMMING MACHINE OPERATOR. PATIENT ABLE TO CONFIRM HOME MEDICATIONS) As the person ultimately responsible for medication therapy, providers are able to order a medication from an existing home medication list in [facility] via the "Reconcile Routine" prior to Confirmation of that medication by sales support technician. Such practice is discouraged except when the physician, in their clinical judgment, deems that a medical need exists for a medication without regard to previous use.
[2020-07-09] MEDS: SENNA 8.6 MG TABLET PO SCH (13:10)
--- NOTE | 2020-07-09 21:00 | PROVIDER PROGRESS NOTE ---
Assessment/Plan - Problem List (1) Inguinal hernia Qualifiers: Obstruction and gangrene presence: without obstruction or gangrene Laterality: bilateral Recurrence: not specified as recurrent Qualified Code(s): K40.20 - Bilateral inguinal hernia, without obstruction or gangrene, not specified as recurrent Assessment/Plan: Initially patient's pain medication was de-escalated from Dilaudid to oxycodone. However patient's pain was not well controlled on oxycodone. Consequently Dilaudid was added to his pain regimen. Patient was seen by general surgery who requested the patient be made n.p.o. after midnight. The plan is for surgery in the morning. (2) Gastroenteritis Assessment/Plan: Improving. No further intervention warranted at this time. (3) Hx of coronary artery disease Assessment/Plan: Continue baby aspirin, atorvastatin, atenolol and amlodipine. (4) Hyperlipidemia Assessment/Plan: Continue atorvastatin 40 mg p.o. daily (5) Hypertension Assessment/Plan: Continue amlodipine and atenolol (6) GERD (gastroesophageal reflux disease) Assessment/Plan: On Protonix - Current Meds Current Meds: Current Medications Generic Name Dose Route Start Last Admin Trade Name Freq PRN Reason Stop Dose Admin Amlodipine Besylate 2.5 mg 07/09/20 09:00 07/09/20 09:17 Norvasc PO 2.5 mg DAILY MARGARET Administration Aspirin 81 mg 07/09/20 09:00 07/09/20 09:15 Ecotrin PO 81 mg DAILY MARGARET Administration Atenolol 25 mg 07/09/20 09:00 07/09/20 09:15 Tenormin PO 25 mg DAILY MARGARET Administration Atorvastatin Calcium 40 mg 07/08/20 21:00 07/08/20 21:36 Lipitor PO 40 mg QPM MARGARET Administration Ondansetron HCl 4 mg 07/07/20 17:46 07/08/20 10:07 Zofran Inj IVP 4 mg Q4HR PRN Administration Nausea / Vomiting Oxycodone HCl 5 mg 07/09/20 07:49 07/09/20 17:18 Roxicodone PO 5 mg Q4HR PRN Administration PAIN Pantoprazole Sodium 40 mg 07/08/20 07:00 07/09/20 05:32 Protonix IVP 40 mg QDAC MARGARET Administration Senna 8.6 - 17.2 mg 07/09/20 13:00 07/09/20 13:10 Senokot PO 8.6 mg DAILY MARGARET Administration Sodium Chloride 10 ml 07/07/20 20:18 07/09/20 05:33 Normal Saline Flush 0.9% IVP 20 ml PRN PRN Administration NEEDED PER PROVIDER ORDERS Sodium Chloride 10 ml 07/08/20 01:00 07/09/20 17:19 Normal Saline Flush 0.9% IVP 10 ml 0100,0900,1700 MARGARET Administration - Lab Result Fish Bone Diagrams: 07/09/20 05:12 07/09/20 05:12 - Additional Planning My Orders: My Active Orders 07/08/20 21:00 Atorvastatin [Lipitor] 40 mg PO QPM 07/09/20 07:49 oxyCODONE [Roxicodone] 5 mg PO Q4HR PRN 07/09/20 09:00 Aspirin EC [Ecotrin] 81 mg PO DAILY amLODIPine [Norvasc] 2.5 mg PO DAILY atenoloL [Tenormin] 25 mg PO DAILY 07/09/20 Lunch Full Liquid Diet [DIET] 07/09/20 13:36 MISC TEST QUEST AMBIENT [REFLAB] Routine 07/09/20 20:58 HYDROmorphone INJ SYRINGE [Dilaudid Inj Syringe] 1 mg IVP Q4H PRN 07/10/20 05:00 BMP - BASIC METABOLIC PANEL [CHEM] DAILYLAB CBC - COMP BLD CT W/AUTO DIFF [HEME] DAILYLAB Subjective - Subjective Patient Reports: Other (Patient seen and examined today. The pain in the right groin area is not well controlled with oxycodone. He reported having a bowel movement today. He denied any other complaints.Patient seen and examined today. He complained of significant pain in the right groin area.) Objective Vital Signs: Vital Signs - 24 hr 07/08/20 07/09/20 07/09/20 23:35 07:46 16:00 Temperature 37.0 C 36.4 C L 36.4 C L Heart Rate [ 63 65 72 Brachial] Respiratory 18 18 18 Rate Blood Pressure 115/69 129/90 H 125/77 [Left Brachial artery] O2 Saturation 95 97 98 Oxygen O2 Source Room air I&O (Last 24 Hrs): Intake and Output Totals x24h 07/07/20 07/08/20 07/09/20 23:59 23:59 23:59 Intake Total 1000 2300.000 1790 Output Total 940 802 5810 Balance 650 1575.000 -710 General: Alert, Oriented x3, Moderate distress, Severe distress HEENT: PERRLA, EOMI Neck: No JVD Neuro: Alert, Oriented Times 3 Cardiovascular: Regular rate, No murmurs Respiratory: Chest non-tender, No respiratory distress, Breath sounds nml Abdomen: Other (Significant tenderness on the right inguinal area) Genitourinary: Inguinal Hernia (Right inguinal pain) Extremities: No edema Skin: No rashes - Results Results: Laboratory Results WBC 5.4 x10^3/uL (4.8-10.8) 07/09/20 05:12 RBC 4.64 10^6/uL (4.70-6.10) L 07/09/20 05:12 Hgb 13.8 g/dL (14.0-18.0) L 07/09/20 05:12 Hct 41.5 % (42.0-52.0) L 07/09/20 05:12 MCV 89.4 fL (80.0-94.0) 07/09/20 05:12 MCH 29.7 pg (27.0-31.0) 07/09/20 05:12 MCHC 33.3 g/dL (32.0-36.0) 07/09/20 05:12 RDW 12.1 % (12.0-15.0) 07/09/20 05:12 Plt Count 171 10^3/uL (130-450) 07/09/20 05:12 MPV 9.7 fL (7.4-11.4) 07/09/20 05:12 Neut # (Auto) 2.8 10^3/uL (1.5-6.6) 07/09/20 05:12 Lymph # (Auto) 1.5 10^3/uL (1.5-3.5) 07/09/20 05:12 [place] # (Auto) 0.6 10^3/uL (0.0-1.0) 07/09/20 05:12 Eos # (Auto) 0.5 10^3/uL (0.0-0.7) 07/09/20 05:12 Baso # (Auto) 0.0 10^3/uL (0.0-0.1) 07/09/20 05:12 Absolute Nucleated RBC 0.00 x10^3/uL 07/09/20 05:12 Nucleated RBC % 0.0 /100WBC 07/09/20 05:12 Sodium 139 mmol/L (135-145) 07/09/20 05:12 Potassium 3.8 mmol/L (3.5-5.0) 07/09/20 05:12 Chloride 102 mmol/L (101-111) 07/09/20 05:12 Carbon Dioxide 26 mmol/L (21-32) 07/09/20 05:12 Anion Gap 11.0 (6-13) 07/09/20 05:12 BUN 11 mg/dL (6-20) 07/09/20 05:12 Creatinine 0.8 mg/dL (0.6-1.2) 07/09/20 05:12 Estimated GFR (MDRD) 102 (>89) 07/09/20 05:12 Glucose 94 mg/dL (70-100) 07/09/20 05:12 Calcium 8.6 mg/dL (8.5-10.3) 07/09/20 05:12 Total Bilirubin 1.4 mg/dL (0.2-1.0) H 07/07/20 12:58 AST 20 IU/L (10-42) 07/07/20 12:58 ALT 41 IU/L (10-60) 07/07/20 12:58 Alkaline Phosphatase 77 IU/L (42-121) 07/07/20 12:58 Total Protein 7.9 g/dL (6.7-8.2) 07/07/20 12:58 Albumin 4.5 g/dL (3.2-5.5) 07/07/20 12:58 Globulin 3.4 g/dL (2.1-4.2) 07/07/20 12:58 Albumin/Globulin Ratio 1.3 (1.0-2.2) 07/07/20 12:58 Lipase 22 U/L (22-51) 07/07/20 12:58 Urine Color YELLOW 07/07/20 14:49 Urine Clarity CLEAR (CLEAR) 07/07/20 14:49 Urine pH 6.5 PH (5.0-7.5) 07/07/20 14:49 Ur Specific [place] 1.010 (1.002-1.030) 07/07/20 14:49 Urine Protein NEGATIVE mg/dL (NEGATIVE) 07/07/20 14:49 Urine Glucose (UA) NEGATIVE mg/dL (NEGATIVE) 07/07/20 14:49 Urine Ketones TRACE mg/dL (NEGATIVE) 07/07/20 14:49 Urine Occult Blood NEGATIVE (NEGATIVE) 07/07/20 14:49 Urine Nitrite NEGATIVE (NEGATIVE) 07/07/20 14:49 Urine Bilirubin NEGATIVE (NEGATIVE) 07/07/20 14:49 Urine Urobilinogen 0.2 (NORMAL) E.U./dL (NORMAL) 07/07/20 14:49 Ur Leukocyte Esterase NEGATIVE (NEGATIVE) 07/07/20 14:49 Ur Microscopic Review NOT INDICATED 07/07/20 14:49 Urine Culture Comments NOT INDICATED 07/07/20 14:49 ABX Reporting Has patient been on IV antibiotics over the past 48 hours?: No
[2020-07-09] MEDS: ATORVASTATIN 40 MG TABLET PO SCH (21:03)
[2020-07-10] MEDS: HYDROmorphone 1 MG/ML CARPUJECT IVP PRN ×3 (01:32→18:33)
[2020-07-10] MEDS: SODIUM CHLORIDE FLUSH 0.9% 10 ML SYRINGE IVP PRN ×4 (01:32→15:23)
[2020-07-10 05:54] LABS: BASOPHILS % (AUTO) 0.5 %; EOSINOPHILS # (AUTO) 0.4 10^3/uL (0.0-0.7); EOSINOPHILS % (AUTO) 7.2 %; HGB - HEMOGLOBIN 14.3 g/dL (14.0-18.0); LYMPHOCYTES # (AUTO) 1.8 10^3/uL (1.5-3.5); LYMPHOCYTES % (AUTO) 32.3 %; MEAN CORPUSCULAR HEMOGLOBIN 30.2 pg (27.0-31.0); MEAN CORPUSCULAR HGB CONC 34.2 g/dL (32.0-36.0); MEAN CORPUSCULAR VOLUME 88.4 fL (80.0-94.0); MEAN PLATELET VOLUME 9.9 fL (7.4-11.4); MONOCYTES # (AUTO) 0.7 10^3/uL (0.0-1.0); MONOCYTES % (AUTO) 12.9 %; NEUTROPHILS # (AUTO) 2.7 10^3/uL (1.5-6.6); NEUTROPHILS % (AUTO) 46.7 %; PLT - PLATELET COUNT 196 10^3/uL (130-450); RED BLOOD COUNT 4.73 10^6/uL (4.70-6.10); RED CELL DISTRIBUTION WIDTH 11.9 % (12.0-15.0); WHITE BLOOD COUNT 5.7 x10^3/uL (4.8-10.8)
[2020-07-10 06:04] LABS: CALCIUM 8.8 mg/dL (8.5-10.3); CREATININE 0.8 mg/dL (0.6-1.2)
[2020-07-10] MEDS: PANTOPRAZOLE 40 MG VIAL IVP SCH ×2 (06:46→09:22)
[2020-07-10] MEDS: SODIUM CHLORIDE FLUSH 0.9% 10 ML SYRINGE IVP SCH ×3 (09:22→23:31)
[2020-07-10] MEDS: amLODIPine 5 MG TABLET PO SCH (09:28)
[2020-07-10] MEDS: ASPIRIN EC 81 MG TABLET PO SCH (09:28)
[2020-07-10] MEDS: atenoloL 25 MG TABLET PO SCH (09:29)
[2020-07-10] MEDS: SENNA 8.6 MG TABLET PO SCH (09:29)
[2020-07-10] MEDS ORDERED: LIDOCAINE 2%-EPI 1:100000 20 ML MDV ONE (09:53)
[2020-07-10] MEDS ORDERED: LIDOCAINE 1% 50 ML MDV ONE (09:53)
[2020-07-10] MEDS ORDERED: BUPIVACAINE 0.5% PF 30 ML VIAL ONE (09:53)
[2020-07-10] MEDS ORDERED: LIDOCAINE-MPF 1% 30 ML VIAL ONE (09:54)
[2020-07-10] MEDS ORDERED: ceFAZolin 1 GM VIAL ONE (09:57)
--- NOTE | 2020-07-10 10:08 | ANESTHESIA ---
Pre-Anesthesia VS, & Labs - Diagnosis B incarcerated inguinal hernias - Procedure B inguinal hernia repair Vital Signs: Temp Pulse Resp BP Pulse Ox 36.9 C 56 L 18 133/92 H 97 07/10/20 08:00 07/10/20 08:00 07/10/20 08:00 07/10/20 08:00 07/10/20 08:00 Height: 5 ft 8 in Weight (kg): 97.5 kg Body Mass Index: 32.6 BMI Classification: Obese - NPO >8 hours - Lab Results Current Lab Results: Laboratory Tests 07/10/20 05:25: Sodium 136, Potassium 3.7, Chloride 100 L, Carbon Dioxide 26, Anion Gap 10.0, BUN 7, Creatinine 0.8, Estimated GFR (MDRD) 102, Glucose 95, Calcium 8.8 07/10/20 05:25: WBC 5.7, RBC 4.73, Hgb 14.3, Hct 41.8 L, MCV 88.4, MCH 30.2, MCHC 34.2, RDW 11.9 L, Plt Count 196, MPV 9.9, Neut # (Auto) 2.7, Lymph # (Auto) 1.8, [place] # (Auto) 0.7, Eos # (Auto) 0.4, Baso # (Auto) 0.0, Absolute Nucleated RBC 0.00, Nucleated RBC % 0.0 07/09/20 05:12: Sodium 139, Potassium 3.8, Chloride 102, Carbon Dioxide 26, Anion Gap 11.0, BUN 11, Creatinine 0.8, Estimated GFR (MDRD) 102, Glucose 94, Calcium 8.6 07/09/20 05:12: WBC 5.4, RBC 4.64 L, Hgb 13.8 L, Hct 41.5 L, MCV 89.4, MCH 29.7, MCHC 33.3, RDW 12.1, Plt Count 171, MPV 9.7, Neut # (Auto) 2.8, Lymph # (Auto) 1.5, [place] # (Auto) 0.6, Eos # (Auto) 0.5, Baso # (Auto) 0.0, Absolute Nucleated RBC 0.00, Nucleated RBC % 0.0 07/08/20 05:45: Sodium 140, Potassium 3.9, Chloride 105, Carbon Dioxide 29, Anion Gap 6.0, BUN 14, Creatinine 0.9, Estimated GFR (MDRD) 89, Glucose 105 H, Calcium 8.4 L 07/08/20 05:45: WBC 5.9, RBC 4.48 L, Hgb 13.3 L, Hct 40.6 L, MCV 90.6, MCH 29.7, MCHC 32.8, RDW 12.3, Plt Count 163, MPV 9.8, Neut # (Auto) 3.2, Lymph # (Auto) 1.5, [place] # (Auto) 0.7, Eos # (Auto) 0.5, Baso # (Auto) 0.0, Absolute Nucleated RBC 0.00, Nucleated RBC % 0.0 07/07/20 12:58: Sodium 138, Potassium 4.1, Chloride 100 L, Carbon Dioxide 22, Anion Gap 16.0 H, BUN 16, Creatinine 1.1, Estimated GFR (MDRD) 71 L, Glucose 120 H, Calcium 9.5, Total Bilirubin 1.4 H, AST 20, ALT 41, Alkaline Phosphatase 77, Total Protein 7.9, Albumin 4.5, Globulin 3.4, Albumin/Globulin Ratio 1.3, Lipase 22 07/07/20 12:58: WBC 10.3, RBC 5.67, Hgb 17.1, Hct 50.8, MCV 89.6, MCH 30.2, MCHC 33.7, RDW 12.4, Plt Count 257, MPV 9.7, Neut # (Auto) 6.9 H, Lymph # (Auto) 1.7, [place] # (Auto) 1.1 H, Eos # (Auto) 0.5, Baso # (Auto) 0.0, Absolute Nucleated RBC 0.00, Nucleated RBC % 0.0 Fish Bones: 07/10/20 05:25 07/10/20 05:25 Home Medications and Allergies Home Medications: Ambulatory Orders Amlodipine Besylate [Norvasc] 2.5 mg PO DAILY 07/08/20 Chlorthalidone 12.5 mg PO DAILY 07/08/20 Fluoxetine HCl 40 mg PO DAILY 07/08/20 Pantoprazole [Protonix] 40 mg PO DAILY 07/08/20 Trazodone HCl 150 mg PO QPM 07/08/20 Active Medications Amlodipine Besylate (Norvasc) 2.5 mg PO DAILY MARGARET Last Admin: 07/10/20 09:28 Dose: Not Given Documented by: Aspirin (Ecotrin) 81 mg PO DAILY [facility] Last Admin: 07/10/20 09:28 Dose: Not Given Documented by: Atenolol (Tenormin) 25 mg PO DAILY [facility] Last Admin: 07/10/20 09:29 Dose: Not Given Documented by: Atorvastatin Calcium (Lipitor) 40 mg PO QPM [facility] Last Admin: 07/09/20 21:03 Dose: 40 mg Documented by: Hydromorphone HCl (Dilaudid Inj Carp) 1 mg IVP Q4H PRN PRN Reason: PAIN Last Admin: 07/10/20 06:47 Dose: 1 mg Documented by: Ondansetron HCl (Zofran Inj) 4 mg IVP Q4HR PRN PRN Reason: Nausea / Vomiting Last Admin: 07/08/20 10:07 Dose: 4 mg Documented by: Oxycodone HCl (Roxicodone) 5 mg PO Q4HR PRN PRN Reason: PAIN Last Admin: 07/09/20 23:47 Dose: 5 mg Documented by: Pantoprazole Sodium (Protonix) 40 mg IVP QDAC [facility] Last Admin: 07/10/20 09:22 Dose: 40 mg Documented by: Senna (Senokot) 8.6 - 17.2 mg PO DAILY [facility] Last Admin: 07/10/20 09:29 Dose: Not Given Documented by: Sodium Chloride (Normal Saline Flush 0.9%) 10 ml IVP PRN PRN PRN Reason: NEEDED PER PROVIDER ORDERS Last Admin: 07/10/20 09:23 Dose: 10 ml Documented by: Sodium Chloride (Normal Saline Flush 0.9%) 10 ml IVP 0100,0900,1700 [facility] Last Admin: 07/10/20 09:22 Dose: 10 ml Documented by: Atorvastatin Calcium 40 mg PO DAILY 05/24/17 Amlodipine Besylate [Norvasc] 2.5 mg PO DAILY 07/08/20 Chlorthalidone 12.5 mg PO DAILY 07/08/20 Fluoxetine HCl 40 mg PO DAILY 07/08/20 Pantoprazole [Protonix] 40 mg PO DAILY 07/08/20 Trazodone HCl 150 mg PO QPM 07/08/20 Allergies/Adverse Reactions: Allergies Allergy/AdvReac Type Severity Reaction Status Date / Time niacin Allergy Hives Verified 07/07/20 12:40 Anes History & Medical History - Anesthetic History Anesthesia Complications: reports: No previous complications Family history of Anesthesia Complications: Denies Family history of Malignant Hyperthermia: Denies - Medical History Cardiovascular: reports: Hypertension, High cholesterol, Coronary artery disease, [place] Pulmonary: reports: None, Sleep apnea Gastrointestinal: reports: GERD Urinary: reports: None Neuro: reports: None Musculoskeletal: reports: Chronic back pain Endocrine/Autoimmune: reports: None Blood Disorders: reports: None Skin: reports: None Smoking Status: Former smoker - Surgical History Eyes Ears Nose Throat (EENT): Rhinoplasty Cardiothoracic: Coronary stent Exam General: Alert, Oriented x3, Cooperative Dental: WNL, Other (vaneer t/o) Mouth Opening: Greater than 4 Fingerbreadths Neck Mobility: Normal Mallampati classification: II Thyromental Distance: greater than 6 cm Respiratory: Lungs clear, Normal breath sounds Cardiovascular: Regular rate Neurological: Normal speech Mental/Cognitive Status: Alert/Oriented X3, Normal for patient Cognitive Status: Within normal limits Plan Anesthesia Type: General Consent for Procedure(s) Verified and Reviewed: Yes Code Status: Attempt Resuscitation ASA classification: 3-Severe systemic disease Is this case an emergency?: Yes
[2020-07-10] MEDS ORDERED: LIDOCAINE 1%-EPI 1:100000 20 ML MDV ONE (10:43)
[2020-07-10] MEDS ORDERED: LIDOCAINE 1%-EPI 1:100000 30 ML MDV SUBQ ONE (11:05)
[2020-07-10] MEDS ORDERED: BUPIVACAINE 0.5% PF 30 ML VIAL INFIL ONE (11:05)
[2020-07-10] MEDS ORDERED: ceFAZolin 1 GM VIAL IR ONE (11:05)
[2020-07-10] MEDS ORDERED: MORPHINE 2 MG/ML CARPUJECT IVP PRN (11:10)
[2020-07-10] MEDS ORDERED: ATROPINE ABBOJECT 1 MG/10 ML SYRINGE IVP PRN (11:10)
[2020-07-10] MEDS ORDERED: fentaNYL 100 MCG/2 ML VIAL IVP PRN (11:10)
[2020-07-10] MEDS ORDERED: ONDANSETRON 4 MG/2 ML VIAL IVP PRN (11:10)
[2020-07-10] MEDS ORDERED: HYDROmorphone 0.5 MG/0.5 ML SYRINGE IVP PRN (11:10)
[2020-07-10] MEDS ORDERED: METOCLOPRAMIDE 10 MG/2 ML VIAL IVP PRN (11:10)
[2020-07-10] MEDS ORDERED: ePHEDrine 50 MG/ML VIAL IVP PRN (11:10)
[2020-07-10] MEDS ORDERED: NALOXONE 0.4 MG/ML VIAL IVP PRN (11:10)
[2020-07-10] MEDS ORDERED: LACTATED RINGERS 1,000 ML IV SCH (12:00)
[2020-07-10] MEDS ORDERED: LACTATED RINGERS 1,000 ML IV ONE (12:36)
--- NOTE | 2020-07-10 14:02 | OPERATIVE REPORT ---
Operative Report - General Admit Date: 07/07/20 Procedure Date: 07/10/20 Planned Procedure: 1. Right inguinal hernia, open 2. Possible diagnostic laparoscopy 3. Possible left inguinal hernia Pre-Op Diagnosis: Right groin pain, incarcerated right fat-containing inguinal hernia, abd pa Procedure Performed: 1. Open right inguinal hernia, direct with plug 2. Open right inguinal hernia indirect with plug 3. Primary suture repair of direct defect 4. Mesh overlay "plug and patch" fashion Post Op Diagnosis: Same, indirect Rt inguinal hernia, direct Rt inguinal hernia, cord lipoma - Procedure Note Primary Surgeon: Nehemiah Secondary Surgeon: Sweetie Anesthesia Provider: Semaj Anesthesia Technique: General ET tube, Local Pathology: Lipoma of the right spermatic cord Estimated Blood Loss (mL): 15 Indications: Incarcerated right inguinal hernia Findings: 1. Direct right inguinal hernia, large, with significant defect of the floor of the canal requiring primary repair over plug 2. Comparatively smaller indirect inguinal hernia for which plug was placed 3. Cord structures identified. Large lipoma the cord resected Complications: None - Other Other Information/Narrative: PENDING ADDENDUM.
[2020-07-10] MEDS: oxyCODONE 5 MG TABLET PO PRN ×3 (14:58→23:57)
[2020-07-10] MEDS: ONDANSETRON 4 MG/2 ML VIAL IVP PRN (15:23)
--- NOTE | 2020-07-10 15:49 | ANESTHESIA POST OP EVALUATION ---
Anesthesia Post Eval - Post Anesthesia Eval Vitals: Last Vital Signs Temp 36.5 C 07/10/20 15:45 Pulse 91 07/10/20 15:45 Resp 20 07/10/20 15:45 BP 129/87 H 07/10/20 15:45 Pulse Ox 96 07/10/20 15:45 CV Function Including HR & BP: positive: Stable Pain Control: positive: Satisfactory Nausea & Vomiting: positive: Negative Mental Status: positive: Baseline Respiratory Status: Airway Patent Hydration Status: Satisfactory
[2020-07-10] MEDS: ATORVASTATIN 40 MG TABLET PO SCH (20:27)
--- NOTE | 2020-07-10 21:49 | PROVIDER PROGRESS NOTE ---
Assessment/Plan - Problem List (1) Inguinal hernia Qualifiers: Obstruction and gangrene presence: without obstruction or gangrene Laterality: bilateral Recurrence: not specified as recurrent Qualified Code(s): K40.20 - Bilateral inguinal hernia, without obstruction or gangrene, not specified as recurrent Assessment/Plan: Patient is postop day 0 for right inguinal repair Patient is doing well. We will continue pain management. Patient was put on clear liquid diet which he tolerated well. Advance diet tomorrow and if tolerated patient will be discharged tomorrow. Patient has been advised to abstain from lifting any heavy objects. He explained that his work has given him a 14-day medical leave after discharge. He would then go on to light duties at work after that. (2) Gastroenteritis Assessment/Plan: Improved. Patient tolerated a clear liquid diet. Will advance diet tomorrow. (3) Hx of coronary artery disease Assessment/Plan: Continue aspirin, atorvastatin, atenolol and amlodipine. (4) Hyperlipidemia Assessment/Plan: Continue atorvastatin (5) Hypertension Assessment/Plan: Continue amlodipine and atenolol (6) GERD (gastroesophageal reflux disease) Assessment/Plan: On protonix - Current Meds Current Meds: Current Medications Generic Name Dose Route Start Last Admin Trade Name Freq PRN Reason Stop Dose Admin Amlodipine Besylate 2.5 mg 07/09/20 09:00 07/10/20 09:28 Norvasc PO Not Given DAILY [facility] Aspirin 81 mg 07/09/20 09:00 07/10/20 09:28 Ecotrin PO Not Given DAILY [facility] Atenolol 25 mg 07/09/20 09:00 07/10/20 09:29 Tenormin PO Not Given DAILY [facility] Atorvastatin Calcium 40 mg 07/08/20 21:00 07/10/20 20:27 Lipitor PO 40 mg QPM MARGARET Administration Ondansetron HCl 4 mg 07/07/20 17:46 07/10/20 15:23 Zofran Inj IVP 4 mg Q4HR PRN Administration Nausea / Vomiting Oxycodone HCl 5 mg 07/09/20 07:49 07/10/20 18:38 Roxicodone PO 5 mg Q4HR PRN Administration PAIN Pantoprazole Sodium 40 mg 07/08/20 07:00 07/10/20 09:22 Protonix IVP 40 mg QDAC MARGARET Administration Senna 8.6 - 17.2 mg 07/09/20 13:00 07/10/20 09:29 Senokot PO Not Given DAILY MARGARET Sodium Chloride 10 ml 07/07/20 20:18 07/10/20 15:23 Normal Saline Flush 0.9% IVP 10 ml PRN PRN Administration NEEDED PER PROVIDER ORDERS Sodium Chloride 10 ml 07/08/20 01:00 07/10/20 18:37 Normal Saline Flush 0.9% IVP 10 ml 0100,0900,1700 MARGARET Administration - Lab Result Fish Bone Diagrams: 07/10/20 05:25 07/10/20 05:25 Subjective - Subjective Patient Reports: Other (Patient seen and examined today. He was resting comfortably in bed at time of exam. He had surgery for his inguinal repair earlier this morning. He complains of feeling numb and his legs. This is likely due to anesthesia. He denied any other complaints.) Objective Vital Signs: Vital Signs - 24 hr 07/10/20 07/10/20 07/10/20 00:00 08:00 12:36 Temperature 36.7 C 36.9 C 36.0 C L Heart Rate 99 Heart Rate [ 52 L 56 L Brachial] Respiratory 18 14 Rate Blood Pressure 145/93 H Blood Pressure 143/94 H 133/92 H [Left Brachial artery] Blood Pressure [Right Brachial artery] O2 Saturation 98 97 99 07/10/20 07/10/20 07/10/20 12:45 12:50 12:55 Temperature 36.2 C L Heart Rate 88 90 73 Heart Rate [ Brachial] Respiratory 13 17 16 Rate Blood Pressure 140/93 H 131/82 H 131/97 H Blood Pressure [Left Brachial artery] Blood Pressure [Right Brachial artery] O2 Saturation 97 97 97 07/10/20 07/10/20 07/10/20 13:00 13:05 13:15 Temperature 36.4 C L Heart Rate 98 80 Heart Rate [ 82 Brachial] Respiratory 10 L 16 18 Rate Blood Pressure 140/94 H 135/94 H Blood Pressure 130/80 [Left Brachial artery] Blood Pressure [Right Brachial artery] O2 Saturation 97 94 94 07/10/20 15:45 Temperature 36.5 C Heart Rate Heart Rate [ 91 Brachial] Respiratory 20 Rate Blood Pressure Blood Pressure [Left Brachial artery] Blood Pressure 129/87 H [Right Brachial artery] O2 Saturation 96 Oxygen O2 Source Room air I&O (Last 24 Hrs): Intake and Output Totals x24h 07/08/20 07/09/20 07/10/20 23:59 23:59 23:59 Intake Total 2300.000 1790 840 Output Total 725 3600 2450 Balance 1575.000 -1810 -1610 General: Alert, Oriented x3, Mild distress, Moderate distress HEENT: PERRLA, EOMI Neck: No JVD Neuro: Alert, Oriented Times 3 Cardiovascular: Regular rate Respiratory: Chest non-tender, No respiratory distress, Breath sounds nml Abdomen: Normal bowel sounds, Soft Extremities: No clubbing, No cyanosis, No edema Skin: No rashes - Results Results: Laboratory Results WBC 5.7 x10^3/uL (4.8-10.8) 07/10/20 05:25 RBC 4.73 10^6/uL (4.70-6.10) 07/10/20 05:25 Hgb 14.3 g/dL (14.0-18.0) 07/10/20 05:25 Hct 41.8 % (42.0-52.0) L 07/10/20 05:25 MCV 88.4 fL (80.0-94.0) 07/10/20 05:25 MCH 30.2 pg (27.0-31.0) 07/10/20 05:25 MCHC 34.2 g/dL (32.0-36.0) 07/10/20 05:25 RDW 11.9 % (12.0-15.0) L 07/10/20 05:25 Plt Count 196 10^3/uL (130-450) 07/10/20 05:25 MPV 9.9 fL (7.4-11.4) 07/10/20 05:25 Neut # (Auto) 2.7 10^3/uL (1.5-6.6) 07/10/20 05:25 Lymph # (Auto) 1.8 10^3/uL (1.5-3.5) 07/10/20 05:25 [place] # (Auto) 0.7 10^3/uL (0.0-1.0) 07/10/20 05:25 Eos # (Auto) 0.4 10^3/uL (0.0-0.7) 07/10/20 05:25 Baso # (Auto) 0.0 10^3/uL (0.0-0.1) 07/10/20 05:25 Absolute Nucleated RBC 0.00 x10^3/uL 07/10/20 05:25 Nucleated RBC % 0.0 /100WBC 07/10/20 05:25 Sodium 136 mmol/L (135-145) 07/10/20 05:25 Potassium 3.7 mmol/L (3.5-5.0) 07/10/20 05:25 Chloride 100 mmol/L (101-111) L 07/10/20 05:25 Carbon Dioxide 26 mmol/L (21-32) 07/10/20 05:25 Anion Gap 10.0 (6-13) 07/10/20 05:25 BUN 7 mg/dL (6-20) 07/10/20 05:25 Creatinine 0.8 mg/dL (0.6-1.2) 07/10/20 05:25 Estimated GFR (MDRD) 102 (>89) 07/10/20 05:25 Glucose 95 mg/dL (70-100) 07/10/20 05:25 Calcium 8.8 mg/dL (8.5-10.3) 07/10/20 05:25 Total Bilirubin 1.4 mg/dL (0.2-1.0) H 07/07/20 12:58 AST 20 IU/L (10-42) 07/07/20 12:58 ALT 41 IU/L (10-60) 07/07/20 12:58 Alkaline Phosphatase 77 IU/L (42-121) 07/07/20 12:58 Total Protein 7.9 g/dL (6.7-8.2) 07/07/20 12:58 Albumin 4.5 g/dL (3.2-5.5) 07/07/20 12:58 Globulin 3.4 g/dL (2.1-4.2) 07/07/20 12:58 Albumin/Globulin Ratio 1.3 (1.0-2.2) 07/07/20 12:58 Lipase 22 U/L (22-51) 07/07/20 12:58 Urine Color YELLOW 07/07/20 14:49 Urine Clarity CLEAR (CLEAR) 07/07/20 14:49 Urine pH 6.5 PH (5.0-7.5) 07/07/20 14:49 Ur Specific [place] 1.010 (1.002-1.030) 07/07/20 14:49 Urine Protein NEGATIVE mg/dL (NEGATIVE) 07/07/20 14:49 Urine Glucose (UA) NEGATIVE mg/dL (NEGATIVE) 07/07/20 14:49 Urine Ketones TRACE mg/dL (NEGATIVE) 07/07/20 14:49 Urine Occult Blood NEGATIVE (NEGATIVE) 07/07/20 14:49 Urine Nitrite NEGATIVE (NEGATIVE) 07/07/20 14:49 Urine Bilirubin NEGATIVE (NEGATIVE) 07/07/20 14:49 Urine Urobilinogen 0.2 (NORMAL) E.U./dL (NORMAL) 07/07/20 14:49 Ur Leukocyte Esterase NEGATIVE (NEGATIVE) 07/07/20 14:49 Ur Microscopic Review NOT INDICATED 07/07/20 14:49 Urine Culture Comments NOT INDICATED 07/07/20 14:49 ABX Reporting Has patient been on IV antibiotics over the past 48 hours?: No
[2020-07-10] MEDS: MORPHINE 2 MG/ML CARPUJECT IVP PRN (23:30)
[2020-07-11] MEDS: MORPHINE 2 MG/ML CARPUJECT IVP PRN ×5 (01:33→12:10)
[2020-07-11] MEDS: oxyCODONE 5 MG TABLET PO PRN (04:10)
[2020-07-11 05:33] LABS: BASOPHILS % (AUTO) 0.3 %; EOSINOPHILS # (AUTO) 0.1 10^3/uL (0.0-0.7); EOSINOPHILS % (AUTO) 0.6 %; HGB - HEMOGLOBIN 13.7 g/dL (14.0-18.0); LYMPHOCYTES # (AUTO) 1.4 10^3/uL (1.5-3.5); LYMPHOCYTES % (AUTO) 15.2 %; MEAN CORPUSCULAR HEMOGLOBIN 30.2 pg (27.0-31.0); MEAN CORPUSCULAR HGB CONC 34.3 g/dL (32.0-36.0); MEAN CORPUSCULAR VOLUME 88.1 fL (80.0-94.0); MEAN PLATELET VOLUME 9.7 fL (7.4-11.4); MONOCYTES # (AUTO) 1.1 10^3/uL (0.0-1.0); MONOCYTES % (AUTO) 12.4 %; NEUTROPHILS # (AUTO) 6.3 10^3/uL (1.5-6.6); NEUTROPHILS % (AUTO) 71.1 %; PLT - PLATELET COUNT 202 10^3/uL (130-450); RED BLOOD COUNT 4.54 10^6/uL (4.70-6.10); RED CELL DISTRIBUTION WIDTH 11.9 % (12.0-15.0); WHITE BLOOD COUNT 8.9 x10^3/uL (4.8-10.8)
[2020-07-11 05:45] LABS: CALCIUM 8.8 mg/dL (8.5-10.3); CREATININE 0.8 mg/dL (0.6-1.2); PHOSPHORUS 4.2 mg/dL (2.5-4.6)
[2020-07-11] MEDS: SODIUM CHLORIDE FLUSH 0.9% 10 ML SYRINGE IVP PRN (05:54)
[2020-07-11] MEDS ORDERED: HYDROcod/ACETAM 7.5 MG/325 MG TABLET PO PRN (08:37)
[2020-07-11] MEDS ORDERED: IBUPROFEN 800 MG TABLET PO PRN (08:37)
[2020-07-11] MEDS: SODIUM CHLORIDE FLUSH 0.9% 10 ML SYRINGE IVP SCH ×2 (09:13→17:56)
[2020-07-11] MEDS: amLODIPine 5 MG TABLET PO SCH (09:16)
[2020-07-11] MEDS: ASPIRIN EC 81 MG TABLET PO SCH (09:17)
[2020-07-11] MEDS: atenoloL 25 MG TABLET PO SCH (09:18)
[2020-07-11] MEDS: SENNA 8.6 MG TABLET PO SCH (09:19)
[2020-07-11 11:58] LABS: BILIRUBIN,URINE NEGATIVE (NEGATIVE); GLUCOSE, URINE (UA) NEGATIVE (NEGATIVE); KETONES,URINE (UA) NEGATIVE (NEGATIVE); LEUKOCYTE ESTERASE, URINE NEGATIVE (NEGATIVE); NITRITE,URINE NEGATIVE (NEGATIVE); OCCULT BLOOD,URINE NEGATIVE (NEGATIVE); PH,URINE 6.5 PH (5.0-7.5); PROTEIN,URINE NEGATIVE (NEGATIVE); UROBILINOGEN,URINE 1 (NORMAL) E.U./dL (NORMAL)
[2020-07-11 12:03] LABS: CLARITY,URINE CLEAR (CLEAR)
[2020-07-11] MEDS: KETOROLAC 30 MG/ML VIAL IVP SCH ×2 (12:10→17:55)
[2020-07-11 12:13] LABS: BACTERIA,URINE None Seen /HPF (None Seen); RBC,URINE None Seen /HPF (0-5); SQUAMOUS EPITHELIAL CELL,UR NONE SEEN (<= Few)
--- NOTE | 2020-07-11 15:37 | PROVIDER PROGRESS NOTE ---
Progress Note Subjective: 50-year-old male postop day 1 status post open right inguinal hernia for incarcerated fat and severe pain and discomfort. He was noted for both direct and indirect components. Cord contents noted and protected. Reports severe pain responding to Toradol. Passing flatus. No bowel movement yet. Objective: Afebrile hemodynamically acceptable General Appearance: positive: No acute distress Eyes Bilateral: positive: Normal inspection ENT: positive: ENT inspection nml Neck: positive: Nml inspection Respiratory: positive: Chest non-tender, No respiratory distress, Breath sounds nml. negative: Wheezes, Rales, Rhonchi Cardiovascular: positive: Regular rate & rhythm Abdomen: positive: No distention, Other. negative: Guarding, Rebound Extremities: positive: Non-tender, Full ROM, Nml appearance Neurologic/Psychiatric: positive: Oriented x3, CN's nml (2-12) Right inguinal wound clean dry and intact. Right testicle with minimal tenderness. Minimal right scrotal swelling. No recurrent herniation appreciated. Impression/Plan Postop day #1 status post open right inguinal hernia repair and patient who presented with incarceration of abdominal fat. No concerns for any small bowel on serial imaging strangulated or incarcerated within either inguinal hernia. Deferred repair of left secondary to absent symptoms. Likely presented with con commitment gastroenteritis potentially related to recent antibiotic use however as yet undiagnosed absent stool studies. Patient will need several weeks off work with no heavy lifting pushing or pulling. As it relates to the patient's pain management, would recommend OxyContin for basal oxycodone for breakthrough, antispasmodic with Robaxin and Lyrica versus gabapentin for neuropathic pain. Comprehensive plan going forward as follows: (1) GI - IVF, bowel regimen, advance diet as tolerated. GI ppx. Anticipate narcotic ileus. Opiate sparring analgesia. (2) SURGERY -continue with surgical dressing; may shower. Will need praveen removed in outpatient clinic within 10 to 14 days. (3) Renal/Lytes - continue IVF. Renal indices within normal limits. (4) Respiratory - O2 as necessary. Continue IS. (5) Heme - Will continue with DVT ppx. H/H stable. (6) Cardiovascular - HD acceptable. (7) Neuro - Opiate sparring analgesia. Antispasmodics with Robaxin. Toradol. Neuropathic agents. (8) Immune/Infectious Disease - defer to hospitalist however no need for antibiotics from a surgical perspective. (9) DISPO - discharge in the next 24 hours from my perspective.
[2020-07-11] MEDS ORDERED: oxyCODONE 5 MG TABLET PO PRN (15:51)
[2020-07-11] MEDS: methocarbamoL 500 MG TABLET PO SCH (17:54)
--- NOTE | 2020-07-11 18:52 | PROVIDER PROGRESS NOTE ---
Subjective - Prog Note Date Prog Note Date: 07/11/20 - Subjective Subjective: He reports passing gas but has not had a bowel movement. He reports severe pain in the right groin. It is about 9 out of 10 right now. It is not relieved with morphine or oxycodone. Current Medications - Current Medications Current Medications: Active Medications Hydrocodone Bitart/Acetaminophen (Brooks 7.5/325) 1 tab PO Q4HR PRN PRN Reason: PAIN Last Admin: 07/11/20 14:50 Dose: 1 tab Documented by: Amlodipine Besylate (Norvasc) 2.5 mg PO DAILY [facility] Last Admin: 07/11/20 09:16 Dose: 2.5 mg Documented by: Aspirin (Ecotrin) 81 mg PO DAILY [facility] Last Admin: 07/11/20 09:17 Dose: 81 mg Documented by: Atenolol (Tenormin) 25 mg PO DAILY [facility] Last Admin: 07/11/20 09:18 Dose: 25 mg Documented by: Atorvastatin Calcium (Lipitor) 40 mg PO QPM [facility] Last Admin: 07/10/20 20:27 Dose: 40 mg Documented by: Docusate Sodium (Colace 100mg Capsule) 100 mg PO BID [facility] Ibuprofen (Motrin) 800 mg PO BID PRN PRN Reason: PAIN Ketorolac Tromethamine (Toradol Inj (30mg)) 30 mg IVP Q6HR [facility] Stop: 07/16/20 11:59 Last Admin: 07/11/20 17:55 Dose: 30 mg Documented by: Methocarbamol (Robaxin) 500 mg PO Q6HR [facility] Last Admin: 07/11/20 17:54 Dose: 500 mg Documented by: Morphine Sulfate (Morphine (Carpuject)) 2 mg IVP Q2HR PRN PRN Reason: PAIN Last Admin: 07/11/20 12:10 Dose: 2 mg Documented by: Ondansetron HCl (Zofran Inj) 4 mg IVP Q4HR PRN PRN Reason: Nausea / Vomiting Last Admin: 07/10/20 15:23 Dose: 4 mg Documented by: Oxycodone HCl (Roxicodone) 5 mg PO Q4HR PRN PRN Reason: PAIN Oxycodone HCl (Oxycontin) 10 mg PO BID [facility] Pantoprazole Sodium (Protonix) 40 mg IVP QDAC [facility] Last Admin: 07/10/20 09:22 Dose: 40 mg Documented by: Polyethylene Glycol (Miralax) 17 gm PO BID [facility] Pregabalin (Lyrica) 100 mg PO BID [facility] Senna (Senokot) 8.6 - 17.2 mg PO DAILY [facility] Last Admin: 07/11/20 09:19 Dose: 8.6 mg Documented by: Sodium Chloride (Normal Saline Flush 0.9%) 10 ml IVP PRN PRN PRN Reason: NEEDED PER PROVIDER ORDERS Last Admin: 07/11/20 05:54 Dose: 10 ml Documented by: Sodium Chloride (Normal Saline Flush 0.9%) 10 ml IVP 0100,0900,1700 [facility] Last Admin: 07/11/20 17:56 Dose: 10 ml Documented by: Atorvastatin Calcium 40 mg PO DAILY 05/24/17 Amlodipine Besylate [Norvasc] 2.5 mg PO DAILY 07/08/20 Chlorthalidone 12.5 mg PO DAILY 07/08/20 Fluoxetine HCl 40 mg PO DAILY 07/08/20 Pantoprazole [Protonix] 40 mg PO DAILY 07/08/20 Trazodone HCl 150 mg PO QPM 07/08/20 Objective - Vital Signs/Intake & Output Reviewed Vital Signs: Yes Vital Signs: Vital Signs x48h Temp Pulse Resp BP Pulse Ox 07/11/20 15:33 37.0 C 51 L 16 117/68 97 Intake & Output: Intake & Output 07/08/20 07/09/20 07/10/20 07/11/20 23:59 23:59 23:59 23:59 Intake Total 2300.000 1790 840 480 Output Total 725 3600 2700 1275 Balance 1575.000 -1810 -1860 -795 - Objective General Appearance: positive: No acute distress, Alert Eyes Bilateral: positive: Normal inspection, Conjunctivae nml ENT: positive: ENT inspection nml Neck: positive: Nml inspection Respiratory: positive: No respiratory distress. negative: Wheezes, Rales Cardiovascular: positive: Regular rate & rhythm, No murmur. negative: Tachycardia, Systolic murmur Abdomen: positive: Nml bowel sounds, No distention, Tenderness (He is tender in the right lower quadrant surrounding the site of the incision.), Other (Dressing is intact. No surrounding erythema.). negative: Non-tender Skin: positive: Warm, Dry Extremities: positive: Full ROM, No pedal edema Neurologic/Psychiatric: positive: Oriented x3, Motor nml. negative: Disoriented to person, Disoriented to place, Disoriented to time - Lab Results Fish Bones: 07/11/20 05:16 07/11/20 05:16 Other Labs: Lab Results x24hrs 07/11/20 07/11/20 07/11/20 Range/Units 11:04 05:16 05:16 WBC 8.9 (4.8-10.8) x10^3/uL RBC 4.54 L (4.70-6.10) 10^6/uL Hgb 13.7 L (14.0-18.0) g/dL Hct 40.0 L (42.0-52.0) % MCV 88.1 (80.0-94.0) fL MCH 30.2 (27.0-31.0) pg MCHC 34.3 (32.0-36.0) g/dL RDW 11.9 L (12.0-15.0) % Plt Count 202 (130-450) 10^3/uL MPV 9.7 (7.4-11.4) fL Neut # (Auto) 6.3 (1.5-6.6) 10^3/uL Lymph # (Auto) 1.4 L (1.5-3.5) 10^3/uL Shelby # (Auto) 1.1 H (0.0-1.0) 10^3/uL Eos # (Auto) 0.1 (0.0-0.7) 10^3/uL Baso # (Auto) 0.0 (0.0-0.1) 10^3/uL Absolute Nucleated RBC 0.00 x10^3/uL Nucleated RBC % 0.0 /100WBC Sodium 135 (135-145) mmol/L Potassium 3.7 (3.5-5.0) mmol/L Chloride 98 L (101-111) mmol/L Carbon Dioxide 28 (21-32) mmol/L Anion Gap 9.0 (6-13) BUN 10 (6-20) mg/dL Creatinine 0.8 (0.6-1.2) mg/dL Estimated GFR (MDRD) 102 (>89) Glucose 132 H (70-100) mg/dL Calcium 8.8 (8.5-10.3) mg/dL Phosphorus 4.2 (2.5-4.6) mg/dL Magnesium 2.0 (1.7-2.8) mg/dL Urine Color YELLOW Urine Clarity CLEAR (CLEAR) Urine pH 6.5 (5.0-7.5) PH Ur Specific Drury 1.010 (1.002-1.030) Urine Protein NEGATIVE (NEGATIVE) mg/dL Urine Glucose (UA) NEGATIVE (NEGATIVE) mg/dL Urine Ketones NEGATIVE (NEGATIVE) mg/dL Urine Occult Blood NEGATIVE (NEGATIVE) Urine Nitrite NEGATIVE (NEGATIVE) Urine Bilirubin NEGATIVE (NEGATIVE) Urine Urobilinogen 1 (NORMAL) (NORMAL) E.U./dL Ur Leukocyte Esterase NEGATIVE (NEGATIVE) Urine RBC None Seen (0-5) /HPF Urine WBC 0-3 (0-3) /HPF Ur Squamous Epith Cells NONE SEEN (<= Few) Urine Bacteria None Seen (None Seen) /HPF Urine Culture Comments NOT INDICATED Assessment/Plan - Problem List (1) Inguinal hernia Impression: He is postop day 1 of right inguinal hernia repair. Unfortunate, his pain is not adequately controlled. Spoke with general surgery we will keep him hospitalized for 1 more night for pain control. We will increase his hydrocodone dose and start him on OxyContin. We will also start him on scheduled Toradol. Qualifiers: Obstruction and gangrene presence: without obstruction or gangrene [place] terality: bilateral Recurrence: not specified as recurrent Qualified Code(s): K40.20 - Bilateral inguinal hernia, without obstruction or gangrene, not specified as recurrent (2) Gastroenteritis Impression: This appears to have resolved. He is tolerating a diet. He does have postop ileus which will manage with bowel regimen. (3) Hx of coronary artery disease Impression: Stable. Continue his home medications. (4) Hypertension Impression: Well-controlled. Continue his home antihypertensives. (5) Hyperlipidemia Impression: Stable. Continue his home medications.
[2020-07-11] MEDS: ATORVASTATIN 40 MG TABLET PO SCH (20:04)
[2020-07-11] MEDS: DOCUSATE SODIUM 100 MG CAPSULE PO SCH (20:04)
[2020-07-11] MEDS: oxyCODONE ER 10 MG TABLET PO SCH (20:04)
[2020-07-11] MEDS: PREGABALIN 100 MG CAPSULE PO SCH (20:04)
[2020-07-11] MEDS: polyethylene glycoL 3350 17 GM PACKET PO SCH (20:04)
[2020-07-12] MEDS: methocarbamoL 500 MG TABLET PO SCH ×3 (01:05→12:16)
[2020-07-12] MEDS: KETOROLAC 30 MG/ML VIAL IVP SCH ×3 (01:05→12:18)
[2020-07-12] MEDS: SODIUM CHLORIDE FLUSH 0.9% 10 ML SYRINGE IVP SCH ×2 (01:06→06:42)
[2020-07-12 05:32] LABS: BASOPHILS % (AUTO) 0.6 %; EOSINOPHILS # (AUTO) 0.3 10^3/uL (0.0-0.7); EOSINOPHILS % (AUTO) 4.2 %; HGB - HEMOGLOBIN 13.2 g/dL (14.0-18.0); LYMPHOCYTES # (AUTO) 1.7 10^3/uL (1.5-3.5); LYMPHOCYTES % (AUTO) 25.5 %; MEAN CORPUSCULAR HEMOGLOBIN 30.4 pg (27.0-31.0); MEAN CORPUSCULAR HGB CONC 34.3 g/dL (32.0-36.0); MEAN CORPUSCULAR VOLUME 88.7 fL (80.0-94.0); MEAN PLATELET VOLUME 9.8 fL (7.4-11.4); MONOCYTES # (AUTO) 0.9 10^3/uL (0.0-1.0); MONOCYTES % (AUTO) 13.3 %; NEUTROPHILS # (AUTO) 3.8 10^3/uL (1.5-6.6); PLT - PLATELET COUNT 175 10^3/uL (130-450); RED BLOOD COUNT 4.34 10^6/uL (4.70-6.10); RED CELL DISTRIBUTION WIDTH 12.2 % (12.0-15.0); WHITE BLOOD COUNT 6.7 x10^3/uL (4.8-10.8)
[2020-07-12 05:44] LABS: CALCIUM 8.6 mg/dL (8.5-10.3); CREATININE 0.8 mg/dL (0.6-1.2); PHOSPHORUS 3.7 mg/dL (2.5-4.6)
[2020-07-12] MEDS: SODIUM CHLORIDE FLUSH 0.9% 10 ML SYRINGE IVP PRN ×2 (06:42→10:34)
[2020-07-12] MEDS: PANTOPRAZOLE 40 MG VIAL IVP SCH (06:43)
[2020-07-12] MEDS: PREGABALIN 100 MG CAPSULE PO SCH (10:30)
[2020-07-12] MEDS: SENNA 8.6 MG TABLET PO SCH (10:30)
[2020-07-12] MEDS: amLODIPine 5 MG TABLET PO SCH (10:30)
[2020-07-12] MEDS: atenoloL 25 MG TABLET PO SCH (10:31)
[2020-07-12] MEDS: polyethylene glycoL 3350 17 GM PACKET PO SCH (10:31)
[2020-07-12] MEDS: ASPIRIN EC 81 MG TABLET PO SCH (10:31)
[2020-07-12] MEDS: oxyCODONE ER 10 MG TABLET PO SCH ×2 (10:31→12:16)
[2020-07-12] MEDS: DOCUSATE SODIUM 100 MG CAPSULE PO SCH (10:31)
[2020-07-12] MEDS ORDERED: FLUoxetine 10 MG CAPSULE PO SCH (11:00)
[2020-07-12] MEDS ORDERED: BISACODYL 10 MG SUPP PR ONE (11:34)
[2020-07-12] MEDS ORDERED: MAGNESIUM HYDROXIDE 2,400 MG/30 ML UDC PO ONE (11:34)
[2020-07-12] MEDS ORDERED: NON FORMULARY MED (Fluoxetine Hcl [Fluoxetine Hcl] 40 MG) PO SCH (13:50)
--- NOTE | 2020-07-12 14:20 | Discharge Plan ---
Discharge Plan Problem Reviewed?: Yes Disposition: Home, Self Care Condition: Good Prescriptions: oxyCODONE [Roxicodone] 5 mg PO Q4HR PRN #40 tablet PRN Reason: Pain methocarbamoL [Robaxin] 500 mg PO Q6HR PRN #60 tablet PRN Reason: Spasms Docusate Sodium 100Mg Capsule [Colace 100Mg Capsule] 100 mg PO BID #60 capsule Pregabalin [Lyrica] 100 mg PO BID #60 capsule polyethylene glycoL 3350 [Miralax] 17 gm PO BID #60 packet oxyCODONE ER [OxyCONTIN] 10 mg PO BID #10 tablet Diet: Regular Activity Restrictions: No heavy lift/push/pull Shower Restrictions: No Driving Restrictions: Yes (No driving if taking narcotics) Additional Instructions or Follow Up instructions: DISCHARGE INSTRUCTIONS TEMPLATE: No heavy lifting, pushing, or pulling. Stairs are allowed, no strenuous/exertional activities. 5-10lbs weight carrying limit (i.e. gallon of milk) If provided, abdominal binder while out of bed and while ambulating. Call or proceed to clinic/ER for fevers, severe pain, nausea, vomiting, inability to pass flatus/stool, bleeding, wound redness/discharge, weakness, excessively loose stool/diarrhea, or for any other reasonably worrisome symptom or concern. Soft diet, no raw vegetables, avoid high fiber foods. Colace 100mg by mouth twice to three times daily while taking narcotic pain medication. If no bowel movement in 24-48hr, may take 17g Miralax in 8oz water twice daily until bowel movement. May shower, no submersive bathing. Follow up in clinic in 2-4 weeks for wound check and staple removal. No driving while taking narcotic pain medications. Follow up with primary care provider and/or medical subspecialist following discharge as well. No Smoking: If you smoke, Please STOP! Call for help. Follow-up with: Ezio Purdy MD [Primary Care Provider] - Sabine Varela MD [Provider Admit Priv/Credential] - 2 Weeks
--- NOTE | 2020-07-12 14:35 | DISCHARGE SUMMARY ---
Discharge Summary Condition at Discharge: Good Discharge Disposition: 01 Home, Self Care - DIAGNOSES Admission Diagnoses: 1. Left inguinal hernia, reducible. 2. Right incarcerated inguinal hernia, fat-containing. 3. Likely enteritis, infectious. 4. Persistent right groin pain 5. History of Coronary Artery Disease Discharge Diagnoses with Status of Each Condition: 1. Left inguinal hernia, reducible - UNCHANGED 2. Right incarcerated inguinal hernia, fat-containing - RESOLVED 3. Likely enteritis, infectious - RESOLVED 4. Persistent right groin pain - RESOLVED 5. History of Coronary Artery Disease - UNCHANGED - HPI History of Present Illness: Extracted from hospitalist admission note: "Patient is a 50-year-old male who presented to the ED with severe abdominal pain. This is worse in the bilateral groin area. The pain is made worse when pressure is applied to his abdomen when laying down, when he coughs sneezes or urinates. His symptoms started on Thursday. He denied chest pain, dyspnea, nausea, vomiting, fever or chills. Work-up in the ED included a CT of the abdomen pelvis which showed prominently abnormal mid small bowel with prominent wall thickening and mesenteric stranding. It also showed bilateral inguinal hernias with a right inguinal hernia containing fat and fluid while the left inguinal hernia containing fat only. A surgical consult was advised. As a result the patient was presented for admission for further management. On a separate note the patient recently completed a course of Augmentin and Bactrim after a dogbite." Surgery was consulted and this was our initial impressions: 50-year-old male presenting with severe abdominal pain, worse over the right groin/inguinal region. I was asked to see secondary to imaging consistent with bilateral inguinal hernias, fat-containing. At the time of my initial evaluation the patient was w ithout any significant discomfort and no appreciable hernias on exam. Repeat imaging was recommended. He reports ongoing discomfort however denies any historic palpable bulges or other concerning features consistent with symptomatic inguinal hernia disease. Repeat imaging continued to reveal persistent herniation fat, right greater than left. Please see below subsequent exam for evaluation. Patient has completed a course of antibiotics for dog bite with no associated febrile episodes and normal white count since admission. Patient denies any sick contacts, however he does have recent antibiotic secondary to go bite which could have contributed to his change in bowel function. - CONSULTS | PROCEDURES Consultations: GENERAL SURGERY Procedures: Pre-Op Diagnosis: Right groin pain, incarcerated right fat-containing inguinal hernia, abdominal pain Procedure Performed: 1. Open right inguinal hernia, direct with plug 2. Open right inguinal hernia indirect with plug 3. Primary suture repair of direct defect 4. Mesh overlay "plug and patch" fashion Post Op Diagnosis: Same, indirect Rt inguinal hernia, direct Rt inguinal hernia, cord lipoma - HOSPITAL COURSE Hospital Course: On initial evaluation the patient was without any bilateral inguinal herniation, no palpable fat either at rest or with Valsalva - this was on the day of July 08 at the time of the patient's initial evaluation. Additional imaging was recommended to evaluate further. On the day subsequent, following the patient's repeat imaging there was a palpable bulge on the right which was attempted to be reduced and was unable to be addressed. This was on the evening of July 09. At this time consistent with the patient's persistent symptoms we offered possible operative intervention. In the setting of persistent symptomatology on imaging and most notably and significantly on physical exam and persistent pain the patient is candidate to proceed with urgent repair. Open right inguinal hernia is indicated plan to use mesh given his size and the degree of his exertional activity. Patient was advised of the risks and benefits associated with this. With regard to the left would defer any operative intervention at this time given that this is most likely an elective intervention. Also we would probably prefer to do a more extensive work-up and see if his pain resolves in the long-term from his right intervention. We will consider diagnostic laparoscopy to evaluate abdominal contents in the setting of enteritis which could potentially have been a consequence of herniation however unlikely given the time since presentation and improvement overall of his generalized abdominal pa in. Plan is to proceed with urgent repair in the a.m., maintain n.p.o., and will perform open right inguinal hernia repair possible left and possible diagnostic laparoscopy. Risk and benefit discussed questions answered. See addendum for balance. - ALLERGIES Allergies/Adverse Reactions: Allergies Allergy/AdvReac Type Severity Reaction Status Date / Time niacin Allergy Hives Verified 07/07/20 12:40 - MEDICATIONS Home Medications: Ambulatory Orders Medication Instructions Recorded Confirmed Atorvastatin Calcium 40 mg PO DAILY 05/24/17 07/09/20 Amlodipine Besylate [Norvasc] 2.5 mg PO DAILY 07/08/20 07/09/20 Chlorthalidone 12.5 mg PO DAILY 07/08/20 07/09/20 Fluoxetine HCl 40 mg PO DAILY 07/08/20 07/09/20 Pantoprazole [Protonix] 40 mg PO DAILY 07/08/20 07/09/20 Trazodone HCl 150 mg PO QPM 07/08/20 07/09/20 Aspirin EC [Ecotrin] 81 mg PO DAILY tablet 07/12/20 Atorvastatin [Lipitor] 40 mg PO QPM tablet 07/12/20 Docusate Sodium 100Mg Capsule 100 mg PO BID #60 capsule 07/12/20 [Colace 100Mg Capsule] FLUoxetine [PROzac] 40 mg PO DAILY capsule 07/12/20 Ibuprofen [Motrin] 800 mg PO BID PRN tablet 07/12/20 Pantoprazole [Protonix inj] 40 mg IVP QDAC vial 07/12/20 Pregabalin [Lyrica] 100 mg PO BID #60 capsule 07/12/20 amLODIPine [Norvasc] 2.5 mg PO DAILY tablet 07/12/20 atenoloL [Tenormin] 25 mg PO DAILY tablet 07/12/20 methocarbamoL [Robaxin] 500 mg PO Q6HR PRN #60 tablet 07/12/20 oxyCODONE ER [OxyCONTIN] 10 mg PO BID #10 tablet 07/12/20 oxyCODONE [Roxicodone] 5 mg PO Q4HR PRN #40 tablet 07/12/20 polyethylene glycoL 3350 [Miralax] 17 gm PO BID #60 packet 07/12/20 - PHYSICAL EXAM AT DISCHARGE General Appearance: positive: No acute distress, Alert Eyes Bilateral: positive: Normal inspection, PERRL, EOMI ENT: positive: ENT inspection nml Neck: positive: Nml inspection Respiratory: positive: Chest non-tender, No respiratory distress, Breath sounds nml. negative: Wheezes, Rales, Rhonchi Cardiovascular: positive: Regular rate & rhythm Abdomen: positive: Non-tender, No organomegaly, Nml bowel sounds, No distention, Other (Right inguinal incision tenderness to palpation as expected appropriately. No palpable recurrent hernias.). negative: Guarding, Rebound Back: positive: Nml inspection Skin: positive: Color nml, No rash, Warm Extremities: positive: Non-tender, Full ROM, Nml appearance Neurologic/Psychiatric: positive: Oriented x3, CN's nml (2-12), Motor nml, Sensation nml, Mood/affect nml - LABS Result Diagrams: 07/12/20 05:15 07/12/20 05:15 - SEPSIS Current Stage of Sepsis: Ruled out - FOLLOW UP Follow Up: DISCHARGE INSTRUCTIONS TEMPLATE: No heavy lifting, pushing, or pulling. Stairs are allowed, no strenuous/exertional activities. 5-10lbs weight carrying limit (i.e. gallon of milk) If provided, abdominal binder while out of bed and while ambulating. Call or proceed to clinic/ER for fevers, severe pain, nausea, vomiting, inability to pass flatus/stool, bleeding, wound redness/discharge, weakness, excessively loose stool/diarrhea, or for any other reasonably worrisome symptom or concern. Soft diet, no raw vegetables, avoid high fiber foods. Colace 100mg by mouth twice to three times daily while taking narcotic pain medication. If no bowel movement in 24-48hr, may take 17g Miralax in 8oz water twice daily until bowel movement. May shower, no submersive bathing. Follow up in clinic in 2-4 weeks for wound check and staple removal. No driving while taking narcotic pain medications. Follow up with primary care provider and/or medical subspecialist following dis charge as well.
[2020-07-12] MEDS ORDERED: GLYCOPYRROLATE 1 MG/5 ML VIAL IVP ONE (14:39)
[2020-07-12] MEDS ORDERED: MIDAZOLAM 2 MG/2 ML VIAL IVP ONE (14:39)
[2020-07-12] MEDS ORDERED: DEXAMETHASONE 4 MG/ML VIAL IVP ONE (14:39)
[2020-07-12] MEDS ORDERED: LIDOCAINE-MPF 2% 5 ML VIAL IM ONE (14:39)
[2020-07-12] MEDS ORDERED: KETOROLAC 30 MG/ML VIAL IVP ONE (14:39)
[2020-07-12] MEDS ORDERED: ACETAMINOPHEN 1,000 MG/100 ML 100 ML IV ONE (14:39)
[2020-07-12] MEDS ORDERED: fentaNYL 100 MCG/2 ML VIAL IVP ONE (14:39)
[2020-07-12] MEDS ORDERED: PROPOFOL 200 MG/20 ML VIAL IVP ONE (14:39)
[2020-07-12] MEDS ORDERED: ONDANSETRON 4 MG/2 ML VIAL IVP ONE (14:39)
[2020-07-12] MEDS ORDERED: NEOSTIGMINE 1 MG/1 ML 10 ML MDV IVP ONE (14:39)
[2020-07-12] MEDS ORDERED: ROCURONIUM 50 MG/5 ML VIAL IVP ONE (14:39)
[2020-07-12 15:36] VITALS: BP 118/81
== END 2020-07-12 14:40 | disposition home or self-care (01) | DRG 352 ==
LOC: ED 12:31 → MS2 17:43
PROVIDERS: ADMIT Internal Medicine; ATTEND Surgery
PROC: 0VBF0ZZ Excision of Right Spermatic Cord, Open Approach (ICD-10-PCS; 2020-07-10)
PROC: 0YU50JZ Supplement Right Inguinal Region with Synthetic Substitute, Open Approach (ICD-10-PCS; principal; 2020-07-10 10:00)
DX: K40.30 Unilateral inguinal hernia, with obstruction, without gangrene, not specified as recurrent (principal); K40.90 Unilateral inguinal hernia, without obstruction or gangrene, not specified as recurrent; A08.4 Viral intestinal infection, unspecified; D17.6 Benign lipomatous neoplasm of spermatic cord; G89.18 Other acute postprocedural pain; I10 Essential (primary) hypertension; E78.5 Hyperlipidemia, unspecified; T14.8XXD Other injury of unspecified body region, subsequent encounter; W54.0XXD Bitten by dog, subsequent encounter; I25.10 Atherosclerotic heart disease of native coronary artery without angina pectoris; G47.30 Sleep apnea, unspecified; K21.9 Gastro-esophageal reflux disease without esophagitis; F41.9 Anxiety disorder, unspecified; F32.9 Major depressive disorder, single episode, unspecified; H91.90 Unspecified hearing loss, unspecified ear; G89.29 Other chronic pain; M54.9 Dorsalgia, unspecified; Z79.82 Long term (current) use of aspirin; Z79.899 Other long term (current) drug therapy; Z95.5 Presence of coronary angioplasty implant and graft; Z87.891 Personal history of nicotine dependence; I25.2 Old myocardial infarction; Z82.49 Family history of ischemic heart disease and other diseases of the circulatory system
CPT/HCPCS: 36415; 71046; 74176; 74177; 80048; 80053; 81001; 81003; 81599; 83690; 83735; 84100; 85025; 93005; 96361; 96374; 97161; 99284; 99285; A9270; C1781; J0131; J1170; J7120; Q9967; 87045; 87046; 87086

== ENCOUNTER 2020-08-31 14:48 | Emergency (ER) | payer OTHER ==
--- NOTE | 2020-08-31 15:01 | ED Physician Documentation ---
PD HPI BACK PAIN - Stated complaint Stated Complaint: BACK PX - History obtained from History obtained from: Patient - Additional information Additional information: 50yo with chronic recurrent LBP with LBP x 1.5 weeks. Worse with twisting/b ending. He has a history of this, but actually has been good for couple of years. There was no inciting injury this time. PD PAST MEDICAL HISTORY - Past Medical History Cardiovascular: Hypertension, High cholesterol, [place] Respiratory: None, Sleep apnea Neuro: None Endocrine/Autoimmune: None GI: GERD : None HEENT: Chronic hearing loss Psych: Depression, Anxiety Musculoskeletal: Chronic back pain Derm: None - Past Surgical History Past Surgical History: Yes Cardiovascular: Coronary stent HEENT: Rhinoplasty - Present Medications Home Medications: Ambulatory Orders Medication Instructions Recorded Confirmed Atorvastatin Calcium 40 mg PO DAILY 05/24/17 07/09/20 Amlodipine Besylate [Norvasc] 2.5 mg PO DAILY 07/08/20 07/09/20 Chlorthalidone 12.5 mg PO DAILY 07/08/20 07/09/20 Fluoxetine HCl 40 mg PO DAILY 07/08/20 07/09/20 Pantoprazole [Protonix] 40 mg PO DAILY 07/08/20 07/09/20 Trazodone HCl 150 mg PO QPM 07/08/20 07/09/20 Aspirin EC [Ecotrin] 81 mg PO DAILY tablet 07/12/20 Atorvastatin [Lipitor] 40 mg PO QPM tablet 07/12/20 Docusate Sodium 100Mg Capsule 100 mg PO BID #60 capsule 07/12/20 [Colace 100Mg Capsule] FLUoxetine [PROzac] 40 mg PO DAILY capsule 07/12/20 Ibuprofen [Motrin] 800 mg PO BID PRN tablet 07/12/20 Pantoprazole [Protonix inj] 40 mg IVP QDAC vial 07/12/20 Pregabalin [Lyrica] 100 mg PO BID #60 capsule 07/12/20 amLODIPine [Norvasc] 2.5 mg PO DAILY tablet 07/12/20 atenoloL [Tenormin] 25 mg PO DAILY tablet 07/12/20 methocarbamoL [Robaxin] 500 mg PO Q6HR PRN #60 tablet 07/12/20 oxyCODONE ER [OxyCONTIN] 10 mg PO BID #10 tablet 07/12/20 oxyCODONE [Roxicodone] 5 mg PO Q4HR PRN #40 tablet 07/12/20 polyethylene glycoL 3350 [Miralax] 17 gm PO BID #60 packet 07/12/20 Cyclobenzaprine [Flexeril] 10 mg PO TID PRN #20 tablet 08/31/20 Oxycodone HCl/Acetaminophen 1 - 2 each PO Q6H PRN #14 tablet 08/31/20 [Percocet 5-325 mg Tablet] predniSONE [Deltasone] 20 mg PO [id number] #21 tab 08/31/20 - Allergies Allergies/Adverse Reactions: Allergies Allergy/AdvReac Type Severity Reaction Status Date / Time niacin Allergy Hives Verified 07/07/20 12:40 - Social History Does the pt smoke?: No Smoking Status: Former smoker Does the pt drink ETOH?: Yes Does the pt have substance abuse?: No - Immunizations Immunizations are current?: Yes Immunizations: TDAP >10years/unknown - POLST Patient has POLST: No POLST Status: Full Code PD ED PE NORMAL - Vitals Vital signs reviewed: Yes - General General: Alert and oriented X 3, No acute distress, Other (Winces with motion) - Abdomen Abdomen: Non tender - Back Back: No spinal TTP, Other (The patient has equal and normal Achilles and patellar reflexes bilaterally. Normal sensation in all areas of the legs. Patient denies saddle anesthesia. Normal strength in flexion-extension at the ankles, knees, and flexion of the hips.) - Neuro Neuro: Alert and oriented X 3, Normal speech Results - Vitals Vitals: Vital Signs - 24 hr 08/31/20 08/31/20 14:59 15:05 Temperature 36.8 C Heart Rate 84 82 Respiratory 16 16 Rate Blood Pressure 136/90 H 147/94 H O2 Saturation 99 99 Oxygen O2 Source Room air PD MEDICAL DECISION MAKING - ED course ED course: This patient has seemingly uncomplicated musculoskeletal back pain. The patient has no "red flags." Specifically denies IV drug use, fevers, incontinence, saddle anesthesia. Spinal epidural abscess was considered, given that the patient has no fever, is not diabetic, has no spinal tenderness, does not use IV drugs, and has no bilateral neurologic symptoms, the diagnosis of spinal epidural abscess is considered exceedingly unlikely. The [facility] prescription monitoring program was queried with regard to this patient. No concerning findings were found. Departure - Departure Disposition: Home, Self Care Clinical Impression: Low back pain Condition: Good Record reviewed to determine appropriate education?: Yes Instructions: ED Neck Back Pain General Prescriptions: predniSONE [Deltasone] 20 mg PO [id number] #21 tab Cyclobenzaprine [Flexeril] 10 mg PO TID PRN #20 tablet PRN Reason: Spasms Oxycodone HCl/Acetaminophen [Percocet 5-325 mg Tablet] 1 - 2 each PO Q6H PRN #14 tablet PRN Reason: pain Forms: Activity restrictions
[2020-08-31] MEDS ORDERED: KETOROLAC 60 MG/2 ML VIAL IM STA (15:09)
[2020-08-31] MEDS ORDERED: DEXAMETHASONE 10 MG/ML VIAL IM STA (15:09)
[2020-08-31 15:12] VITALS: BP 147/94
== END 2020-08-31 15:48 | disposition home or self-care (01) ==
LOC: ED 14:48
DX: M54.5 Low back pain (principal); I10 Essential (primary) hypertension; Z87.891 Personal history of nicotine dependence
CPT/HCPCS: 96374; 96375; 99281

== ENCOUNTER 2020-12-01 07:50 | Emergency (ER) | payer OTHER ==
--- NOTE | 2020-12-01 08:45 | ED Physician Documentation ---
PD HPI ABD PAIN - Stated complaint Stated Complaint: ABD PX - Chief complaint Chief Complaint: Abd Pain - History obtained from History obtained from: Patient - History of Present Illness Timing - onset: How many weeks ago (2) Timing - duration: Weeks (2) Timing - details: Gradual onset, Still present Pain level max: 8 Pain level now: 8 Quality: Sharp, Pain Location: Periumbilical Radiation: Improved by: Laying still Worsened by: Moving, Position, Palpation Associated symptoms: No: Fever, Nausea, Vomiting, Hematemesis, Diarrhea, Constipation, Melena, Hematochezia, Dysuria, Hematuria, Chest pain, Dizzy, Near syncope / syncope, Loss of appetite, Weight loss Similar symptoms before: Diagnosis (ventral hernia) Recently seen: Not recently seen - Additional information Additional information: 50-year-old male with a history of inguinal hernias and a ventral hernia has had the right inguinal hernia repaired in June and over the past 2 weeks he has been developed some pain similar to what is had with his prior hernia in the periumbilical area radiating down to the right. He has not had nausea or vomiting associated with this he is not had a fever he has not had a change in his bowel. He does state that over the past 2 weeks anytime he goes to move and do things he is having pain the pain was significantly worse this morning when he got up. He went to go to work and he had to call off work to come to the emergency department. [facility]. Since his procedure he does have complaint of numbness to the right side and a lack of sexual performance. Review of Systems Constitutional: denies: Fever Eyes: denies: Decreased vision Ears: denies: Ear pain Nose: denies: Congestion Throat: denies: Sore throat Cardiac: denies: Chest pain / pressure, Palpitations Respiratory: denies: Dyspnea, Cough GI: reports: Abdominal Pain. denies: Nausea, Vomiting, Constipation, Diarrhea : denies: Dysuria, Frequency Skin: denies: Rash Musculoskeletal: reports: Back pain. denies: Neck pain, Extremity pain Neurologic: reports: Numbness. denies: Generalized weakness, Focal weakness PD PAST MEDICAL HISTORY - Past Medical History Cardiovascular: Hypertension, High cholesterol, [place] Respiratory: None, Sleep apnea Neuro: None Endocrine/Autoimmune: None GI: GERD : None HEENT: Chronic hearing loss Psych: Depression, Anxiety Musculoskeletal: Chronic back pain Derm: None - Past Surgical History Past Surgical History: Yes Cardiovascular: Coronary stent HEENT: Rhinoplasty - Present Medications Home Medications: Ambulatory Orders Medication Instructions Recorded Confirmed Amlodipine Besylate [Norvasc] 2.5 mg PO DAILY 07/08/20 07/09/20 Chlorthalidone 12.5 mg PO DAILY 07/08/20 07/09/20 Trazodone HCl 150 mg PO QPM 07/08/20 07/09/20 Aspirin EC [Ecotrin] 81 mg PO DAILY tablet 07/12/20 Atorvastatin [Lipitor] 40 mg PO QPM tablet 07/12/20 FLUoxetine [PROzac] 40 mg PO DAILY capsule 07/12/20 Pantoprazole [Protonix inj] 40 mg IVP QDAC vial 07/12/20 Pregabalin [Lyrica] 100 mg PO BID #60 capsule 07/12/20 amLODIPine [Norvasc] 2.5 mg PO DAILY tablet 07/12/20 Oxycodone HCl/Acetaminophen 1 - 2 each PO Q6H PRN #14 tablet 08/31/20 [Percocet 5-325 mg Tablet] Budesonide [Entocort EC] 9 mg PO DAILY #20 cap 12/01/20 Phentermine HCl 30 mg PO 12/01/20 12/01/20 - Allergies Allergies/Adverse Reactions: Allergies Allergy/AdvReac Type Severity Reaction Status Date / Time niacin Allergy Hives Verified 12/01/20 07:59 - Social History Does the pt smoke?: No Smoking Status: Never smoker Does the pt drink ETOH?: Yes Does the pt have substance abuse?: No - Immunizations Immunizations are current?: Yes Immunizations: TDAP >10years/unknown - POLST Patient has POLST: No POLST Status: Full Code PD ED PE NORMAL - Vitals Vital signs reviewed: Yes (normal ) - General General: Alert and oriented X 3, No acute distress, Well developed/nourished - HEENT HEENT: Atraumatic, PERRL, EOMI - Neck Neck: Supple, no meningeal sign, No bony TTP - Cardiac Cardiac: RRR, No murmur - Respiratory Respiratory: No respiratory distress, Clear bilaterally - Abdomen Abdomen: Normal bowel sounds, Soft, Non distended, No organomegaly, Other (There is a soft palpable mass to the right of the umbilicus and inferior. It may be reducible. There is pain associated with palpation without garding. 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, No motor deficit, No sensory deficit, Normal speech Eye Opening: Spontaneous Motor: Obeys Commands Verbal: Oriented GCS Score: 15 - Psych Psych: Normal mood, Normal affect Results - Vitals Vitals: Vital Signs - 24 hr 12/01/20 12/01/20 12/01/20 07:54 09:59 11:00 Temperature 36.6 C Heart Rate 57 L 56 L 51 L Respiratory 18 17 19 Rate Blood Pressure 120/80 114/81 H 106/73 O2 Saturation 99 98 98 12/01/20 12:21 Temperature Heart Rate 80 Respiratory 18 Rate Blood Pressure 118/90 H O2 Saturation 100 Oxygen O2 Source Room air - Labs Labs: Laboratory Tests 12/01/20 12/01/20 12/01/20 08:06 09:14 09:14 WBC 5.9 RBC 4.80 Hgb 14.7 Hct 42.6 MCV 88.8 MCH 30.6 MCHC 34.5 RDW 12.6 Plt Count 185 MPV 10.5 Neut # (Auto) 4.1 Lymph # (Auto) 0.9 L [place] # (Auto) 0.7 Eos # (Auto) 0.2 Baso # (Auto) 0.0 Absolute Nucleated RBC 0.00 Nucleated RBC % 0.0 Sodium 134 L Potassium 4.2 Chloride 96 L Carbon Dioxide 28 Anion Gap 10.0 BUN 17 Creatinine 0.9 Estimated GFR (MDRD) 89 Glucose 94 Lactic Acid Calcium 9.1 Total Bilirubin 0.8 AST 23 ALT 28 Alkaline Phosphatase 83 Total Protein 6.9 Albumin 4.0 Globulin 2.9 Albumin/Globulin Ratio 1.4 Lipase 27 Urine Color YELLOW Urine Clarity CLEAR Urine pH 5.5 Ur Specific Pedro 1.020 Urine Protein NEGATIVE Urine Glucose (UA) NEGATIVE Urine Ketones NEGATIVE Urine Occult Blood NEGATIVE Urine Nitrite NEGATIVE Urine Bilirubin NEGATIVE Urine Urobilinogen 0.2 (NORMAL) Ur Leukocyte Esterase NEGATIVE Ur Microscopic Review NOT INDICATED Urine Culture Comments NOT INDICATED 12/01/20 09:14 WBC RBC Hgb Hct MCV MCH MCHC RDW Plt Count MPV Neut # (Auto) Lymph # (Auto) [place] # (Auto) Eos # (Auto) Baso # (Auto) Absolute Nucleated RBC Nucleated RBC % Sodium Potassium Chloride Carbon Dioxide Anion Gap BUN Creatinine Estimated GFR (MDRD) Glucose Lactic Acid 1.0 Calcium Total Bilirubin AST ALT Alkaline Phosphatase Total Protein Albumin Globulin Albumin/Globulin Ratio Lipase Urine Color Urine Clarity Urine pH Ur Specific Pedro Urine Protein Urine Glucose (UA) Urine Ketones Urine Occult Blood Urine Nitrite Urine Bilirubin Urine Urobilinogen Ur Leukocyte Esterase Ur Microscopic Review Urine Culture Comments PD MEDICAL DECISION MAKING - ED course Complexity details: reviewed old records, reviewed results, re-evaluated patient, considered differential, d/w patient ED course: 50 y/o male with right sided abdominal pain and burning for the past 2 weeks has loose stool but not diarrhea and without blood. His scan is concerning for crohns disease. His presentation is consistent with mild disease and after discussion with patient we will start empiric therapy with budesinide to induce remission. [facility] He is given enough for about 3 weeks of treatment and will need follow up to continue treatment. Departure - Departure Disposition: Home, Self Care Clinical Impression: Crohns disease of small intestine Qualifiers: Digestive disease complication type: without complication Qualified Code(s): K50.00 - Crohn's disease of small intestine without complications Condition: Stable Instructions: ED Inflam Bowel Disease Crohn Follow-Up: Your, [place] doctor [Other] Prescriptions: Budesonide [Entocort EC] 9 mg PO DAILY #20 cap Comments: Today it appears you have inflammation similar to what was present in June and the concern is for inflammatory bowel disease such as Crohns disease. This will require a visit to the medical record consultant and a biopsy for confirmation. In the mean time I have prescribed a medication for induction of remission and the expectation is that your symptoms improve over the next week. The total course for the Budesinide is 12 weeks and includes a taper of the medication. A follow up with your regular doctor or the medical record consultant will be required to compete the course. Discharge Date/Time: 12/01/20 12:21
[2020-12-01] MEDS ORDERED: IOVERSOL 320 100 ML VIAL IVP ONE ×2 (08:56→10:00)
[2020-12-01 09:21] LABS: BASOPHILS % (AUTO) 0.2 %; EOSINOPHILS # (AUTO) 0.2 10^3/uL (0.0-0.7); EOSINOPHILS % (AUTO) 3.2 %; HGB - HEMOGLOBIN 14.7 g/dL (14.0-18.0); LYMPHOCYTES # (AUTO) 0.9 10^3/uL (1.5-3.5); LYMPHOCYTES % (AUTO) 15.7 %; MEAN CORPUSCULAR HEMOGLOBIN 30.6 pg (27.0-31.0); MEAN CORPUSCULAR HGB CONC 34.5 g/dL (32.0-36.0); MEAN CORPUSCULAR VOLUME 88.8 fL (80.0-94.0); MEAN PLATELET VOLUME 10.5 fL (7.4-11.4); MONOCYTES # (AUTO) 0.7 10^3/uL (0.0-1.0); MONOCYTES % (AUTO) 11.7 %; NEUTROPHILS # (AUTO) 4.1 10^3/uL (1.5-6.6); PLT - PLATELET COUNT 185 10^3/uL (130-450); RED CELL DISTRIBUTION WIDTH 12.6 % (12.0-15.0); WHITE BLOOD COUNT 5.9 x10^3/uL (4.8-10.8)
[2020-12-01 09:23] LABS: BILIRUBIN,URINE NEGATIVE (NEGATIVE); CLARITY,URINE CLEAR (CLEAR); GLUCOSE, URINE (UA) NEGATIVE (NEGATIVE); KETONES,URINE (UA) NEGATIVE (NEGATIVE); LEUKOCYTE ESTERASE, URINE NEGATIVE (NEGATIVE); NITRITE,URINE NEGATIVE (NEGATIVE); OCCULT BLOOD,URINE NEGATIVE (NEGATIVE); PH,URINE 5.5 PH (5.0-7.5); PROTEIN,URINE NEGATIVE (NEGATIVE); UROBILINOGEN,URINE 0.2 (NORMAL) E.U./dL (NORMAL)
[2020-12-01 09:36] LABS: ALBUMIN/GLOBULIN RATIO 1.4 (1.0-2.2); BILIRUBIN,TOTAL 0.8 mg/dL (0.2-1.0); CALCIUM 9.1 mg/dL (8.5-10.3); CREATININE 0.9 mg/dL (0.6-1.2); TOTAL PROTEIN 6.9 g/dL (6.7-8.2)
--- NOTE | 2020-12-01 10:26 | CT Report ---
PROCEDURE: Abdomen/Pelvis W INDICATIONS: midline pain/hernia CONTRAST: IV CONTRAST: Optiray 320 ml: 100 PO CONTRAST: *NO PO CONTRAST TECHNIQUE: After the administration of nonionic IV contrast, 5 mm thick sections acquired from the diaphragms to the symphysis. 5 mm thick coronal and sagittal reformats were acquired. For radiation dose reducti on, the following was used: automated exposure control, adjustment of mA and/or kV according to cale ent size. COMPARISON: 07/07/2020, 07/08/2020 FINDINGS: Image quality: Excellent. ABDOMEN: Lung bases: Lung bases are clear. Heart size is normal. Solid organs: The liver demonstrates normal size and demonstrates no focal lesions. Diffuse fatty richard er infiltration can be seen. The spleen is mildly enlarged, measuring 13.7 cm AP. Gallbladder wall does not appear thickened. Biliary system is non dilated. Pancreas enhances normally. No adrenal nodules. Kidneys demonstrate normal size and enhancement, without hydronephrosis. Peritoneum and bowel: Several distal loops of small bowel demonstrate concentric thickening with mild stranding inflammatory change. Fatty metaplasia can be seen of some of the distal small bowel loops. No free air or significant free fluid can be seen. No significant colonic abnormality can be seen. A normal appendix is incidentally noted. Nodes and vessels: No retroperitoneal or mesenteric adenopathy by size criteria. Aorta and inferior vena cava are normal in size. Miscellaneous: No ventral hernias. PELVIS: Genitourinary: Bladder wall thickness is normal. A urachal remnant can be seen involving the bladde r apex, as on series 7 image 40. Miscellaneous: No inguinal adenopathy. There is a fat-containing left inguinal hernia. There has be en interval postoperative repair of the previously seen right inguinal hernia. Mild fluid can be seen at the surgical repair site, as on series 3 image 85. An abscess is not suspected at this site, give n the lack of surrounding inflammatory change or enhancement. Bones: No suspicious bony lesions. No vertebral body compression fractures. Mild dextroconvex scol iotic curvature is seen. Focal L5-S1 degenerative change is seen. Milder degenerative changes are see n elsewhere. IMPRESSION: There is again seen thickening and surrounding inflammatory change of several loops of d istal small bowel. Please consider inflammatory bowel disease (Crohn's disease). Infection is also po ssible, yet considered to be less likely. Ischemia is also unlikely, given the appearance. Interval right inguinal hernia repair, with fluid seen at the surgical repair site. Incidental note is made of: Fatty liver infiltration Mild splenomegaly Normal appendix Dextroconvex scoliotic curvature Focal L5-S1 degenerative change Urachal remnant Fat-containing left inguinal hernia Reviewed by: Hosea Diaz MD on 12/01/2020 9:25 AM [facility] Approved by: Hosea Diaz MD on 12/01/2020 9:25 AM [facility] Station ID: [id number]
[2020-12-01 12:22] VITALS: BP 118/90
== END 2020-12-01 12:21 | disposition home or self-care (01) ==
LOC: ED 07:50
DX: K50.00 Crohn's disease of small intestine without complications (principal); I10 Essential (primary) hypertension; Z95.5 Presence of coronary angioplasty implant and graft; Z79.82 Long term (current) use of aspirin
CPT/HCPCS: 36415; 74177; 80053; 81003; 83605; 83690; 85025; 99284; Q9967; 81001; 87086

== ENCOUNTER 2021-04-11 04:03 | Emergency (ER) | payer BC, OTHER ==
[~2021-04-11 04:03] MED LIST: KETOROLAC 15 MG/ML VIAL ONE; ONDANSETRON ODT 4 MG TABLET ONE
[2021-04-11 04:33] LABS: BILIRUBIN,URINE NEGATIVE (NEGATIVE); CLARITY,URINE CLEAR (CLEAR); GLUCOSE, URINE (UA) NEGATIVE (NEGATIVE); KETONES,URINE (UA) TRACE mg/dL (NEGATIVE); LEUKOCYTE ESTERASE, URINE NEGATIVE (NEGATIVE); NITRITE,URINE NEGATIVE (NEGATIVE); OCCULT BLOOD,URINE NEGATIVE (NEGATIVE); PH,URINE 5.5 PH (5.0-7.5); PROTEIN,URINE NEGATIVE (NEGATIVE); UROBILINOGEN,URINE 0.2 (NORMAL) E.U./dL (NORMAL)
[2021-04-11 04:34] VITALS: BP 121/80
--- NOTE | 2021-04-11 10:02 | ED Physician Documentation ---
ED Addendum - Addendum Addendum: 04/11/21 10:01 I was asked by our off going emergency department physician Dr. Bentley to contact this patient Bk Kolb about findings on his testicular ultrasound. The additional finding was that of a varicocele bilaterally and I have relayed this information to the patient including a recommendation that he see the urologist regarding this. The patient has been having some symptoms of testicular pain for some time. [facility] and [facility].
--- NOTE | 2021-04-11 11:08 | Ultrasound Report ---
PROCEDURE: Testicle w/Doppler Limited INDICATIONS: TESTICULAR PAIN X1.5 MONTHS TECHNIQUE: Real-time scanning was performed of the scrotum and testicles, with image documentation. Color and p ulse Doppler interrogation was performed of both testicles. COMPARISON: None. FINDINGS: Right: Testicle is normal in size at 3.3 x 2.6 x 4.8 cm, and homogenous in echotexture. Epididymis is normal in overall size and morphology. There is a mild minimally complex hydrocele and a nonthromb osed varicocele. Overlying scrotal skin is normal in thickness. Scattered nonspecific microcalcific ations noted. Left: Testicle is normal in size at 2.9 x 2.3 x 4.0 cm, and homogeneous in echotexture. Epididymis is normal in overall size and morphology. No significant hydrocele and only mild varicoceles. Overl michelle scrotal skin is normal in thickness. As was seen on the right there are several scattered nonsp ecific microcalcifications within the testicular parenchyma. Doppler: Color and pulse Doppler demonstrate normal arterial flow in both testicles showing no evide nce of torsion, and there is a slightly asymmetric degree of right epididymal blood flow potentially a manifestation of mild epididymitis. IMPRESSION: No testicular mass is found. Several scattered nonspecific microcalcifications within the testicular parenchyma are seen bilaterally. Minimally complex small to moderate right-sided hydrocele, note is made of mild increased blood flow to the right epididymis suggestive of mild right epididymitis. No hyperemia involving the testicle on the right is seen. Small bilateral varicoceles. Reviewed by: Mac Streeter MD on 04/11/2021 11:07 AM PDT Approved by: Mac Streeter MD on 04/11/2021 11:07 AM PDT Station ID: [id number]
== END 2021-04-11 04:45 | disposition home or self-care (01) ==
LOC: ED 04:03
DX: I86.1 Scrotal varices (principal); I10 Essential (primary) hypertension
CPT/HCPCS: 76870; 81003; 93976; 99284; Q0162; 81001; 87086

== ENCOUNTER 2021-04-13 16:45 | Emergency (ER) | payer OTHER ==
--- NOTE | 2021-04-13 17:34 | XRAY Report ---
PROCEDURE: Chest 1 View X-Ray INDICATIONS: Chest pain TECHNIQUE: One view of the chest was acquired. COMPARISON: 07/07/2020 FINDINGS: Surgical changes and devices: None. Lungs and pleura: No pleural effusions or pneumothorax. Lungs are clear. Mediastinum: Mediastinal contours appear normal. Heart size is normal. Bones and chest wall: No suspicious bony lesions. Overlying soft tissues appear unremarkable. IMPRESSION: No evidence acute pulmonary process. Reviewed by: Homer Loyola MD on 04/13/2021 4:33 PM [facility] Approved by: Homer Loyola MD on 04/13/2021 4:33 PM [facility] Station ID: [id number]
[2021-04-13 17:56] LABS: BASOPHILS % (AUTO) 0.5 %; EOSINOPHILS # (AUTO) 0.2 10^3/uL (0.0-0.7); EOSINOPHILS % (AUTO) 4.2 %; HGB - HEMOGLOBIN 13.8 g/dL (14.0-18.0); LYMPHOCYTES # (AUTO) 1.8 10^3/uL (1.5-3.5); LYMPHOCYTES % (AUTO) 31.5 %; MEAN CORPUSCULAR HEMOGLOBIN 30.4 pg (27.0-31.0); MEAN CORPUSCULAR HGB CONC 34.5 g/dL (32.0-36.0); MEAN CORPUSCULAR VOLUME 88.1 fL (80.0-94.0); MEAN PLATELET VOLUME 10.1 fL (7.4-11.4); MONOCYTES # (AUTO) 0.7 10^3/uL (0.0-1.0); MONOCYTES % (AUTO) 11.5 %; NEUTROPHILS % (AUTO) 52.1 %; PLT - PLATELET COUNT 185 10^3/uL (130-450); RED BLOOD COUNT 4.54 10^6/uL (4.70-6.10); RED CELL DISTRIBUTION WIDTH 12.2 % (12.0-15.0); WHITE BLOOD COUNT 5.7 x10^3/uL (4.8-10.8)
--- NOTE | 2021-04-13 18:06 | ED Physician Documentation ---
PD HPI DYSPNEA - Stated complaint Stated Complaint: SOA,SWELLING WHOLE BODY,WEIGHT GAIN - Chief complaint Chief Complaint: Resp - History obtained from History obtained from: Patient - History of Present Illness Timing - onset: How many months ago (1 month of general weight gain and edema, with most notable the past several days, with dyspnea and fatigue as well.) Timing - onset during: Light activity Timing - duration: Days, Weeks Timing - details: Gradual onset, Still present Inciting event(s): No: Out of meds Worsened by: Exertion. No: Laying flat Associated symptoms: Bilateral edema (and general body swelling). No: Fever, Cough, Hemoptysis, Wheezing Similar symptoms before: No diagnosis (has had fluid retention at times, treated with short course diuretics. No history of CHF, renal failure, thyroid disorder.) Recently seen: Not recently seen Review of Systems Constitutional: denies: Fever, Chills Nose: denies: Rhinorrhea / runny nose, Congestion Throat: denies: Sore throat Respiratory: denies: Cough GI: denies: Nausea, Vomiting, Diarrhea : reports: Hesitancy. denies: Dysuria, Frequency Musculoskeletal: reports: Extremity swelling. denies: Neck pain, Back pain Neurologic: reports: Generalized weakness. denies: Focal weakness, Numbness PD PAST MEDICAL HISTORY - Past Medical History Cardiovascular: Hypertension, High cholesterol, [place] Respiratory: None, Sleep apnea Neuro: None Endocrine/Autoimmune: None GI: GERD : None HEENT: Chronic hearing loss Psych: Depression, Anxiety Musculoskeletal: Chronic back pain Derm: None - Past Surgical History Past Surgical History: Yes Cardiovascular: Coronary stent HEENT: Rhinoplasty - Present Medications Home Medications: Ambulatory Orders Medication Instructions Recorded Confirmed Amlodipine Besylate [Norvasc] 2.5 mg PO DAILY 07/08/20 04/11/21 Chlorthalidone 12.5 mg PO DAILY 07/08/20 04/11/21 Trazodone HCl 150 mg PO QPM 07/08/20 04/11/21 Aspirin EC [Ecotrin] 81 mg PO DAILY tablet 07/12/20 04/11/21 Atorvastatin [Lipitor] 40 mg PO QPM tablet 07/12/20 04/11/21 Pantoprazole [Protonix inj] 40 mg IVP QDAC vial 07/12/20 04/11/21 amLODIPine [Norvasc] 2.5 mg PO DAILY tablet 07/12/20 04/11/21 Ketorolac [Toradol] 10 mg PO Q6H PRN #30 tablet 04/11/21 Metoprolol Succinate [Toprol Xl] 50 mg PO BID 04/11/21 04/11/21 Ondansetron Odt [Zofran Odt] 4 mg TL Q6H PRN #10 tablet 04/11/21 Furosemide [Lasix] 40 mg PO DAILY 10 Days #10 tablet 04/13/21 - Allergies Allergies/Adverse Reactions: Allergies Allergy/AdvReac Type Severity Reaction Status Date / Time niacin Allergy Hives Verified 04/13/21 17:05 - Social History Does the pt smoke?: No Smoking Status: Never smoker Does the pt drink ETOH?: Yes Does the pt have substance abuse?: No - Immunizations Immunizations are current?: Yes Immunizations: TDAP >10years/unknown - POLST Patient has POLST: No POLST Status: Full Code PD ED PE NORMAL - Vitals Vital signs reviewed: Yes - General General: Alert and oriented X 3, No acute distress, Well developed/nourished - HEENT HEENT: Pharynx benign - Neck Neck: Supple, no meningeal sign, No adenopathy - Cardiac Cardiac: RRR, No murmur - Respiratory Respiratory: Clear bilaterally (no crackles heard) - Abdomen Abdomen: Soft, Non tender - Derm Derm: Normal color, Warm and dry - Extremities Extremities: No tenderness to palpate, No calf tenderness / cord, Other (2+ edema in legs and 1+ in hands/arms. No noted ascites per se. ) - Neuro Neuro: Alert and oriented X 3, No motor deficit, Normal speech Results - Vitals Vitals: Oxygen O2 Source Room air - Labs Labs: Laboratory Tests 04/13/21 04/13/21 04/13/21 17:50 17:50 17:50 WBC 5.7 RBC 4.54 L Hgb 13.8 L Hct 40.0 L MCV 88.1 MCH 30.4 MCHC 34.5 RDW 12.2 Plt Count 185 MPV 10.1 Neut # (Auto) 3.0 Lymph # (Auto) 1.8 [place] # (Auto) 0.7 Eos # (Auto) 0.2 Baso # (Auto) 0.0 Absolute Nucleated RBC 0.00 Nucleated RBC % 0.0 Sodium 134 L Potassium 3.5 Chloride 101 Carbon Dioxide 25 Anion Gap 8.0 BUN 22 H Creatinine 1.1 Estimated GFR (MDRD) 71 L Glucose 107 H Calcium 8.7 Magnesium Total Bilirubin 1.2 H AST 37 ALT 45 Alkaline Phosphatase 66 Troponin I High Sens 4.0 B-Natriuretic Peptide Total Protein 6.7 Albumin 4.1 Globulin 2.6 Albumin/Globulin Ratio 1.6 Lipase 24 TSH 04/13/21 04/13/21 04/13/21 17:50 17:50 17:50 WBC RBC Hgb Hct MCV MCH MCHC RDW Plt Count MPV Neut # (Auto) Lymph # (Auto) [place] # (Auto) Eos # (Auto) Baso # (Auto) Absolute Nucleated RBC Nucleated RBC % Sodium Potassium Chloride Carbon Dioxide Anion Gap BUN Creatinine Estimated GFR (MDRD) Glucose Calcium Magnesium 2.1 Total Bilirubin AST ALT Alkaline Phosphatase Troponin I High Sens B-Natriuretic Peptide 74 Total Protein Albumin Globulin Albumin/Globulin Ratio Lipase TSH 2.53 - Rads (name of study) chest xray Radiology: Prelim report reviewed (no CHF), See rad report PD MEDICAL DECISION MAKING - ED course Complexity details: reviewed results (no signs of heart failure, renal failure, proteinuria, hypothyroid. Presume fluid retention but not sure why.), re- evaluated patient (he has had large urine output so far from IV dose of Lasix. He is comfortable going home with short course diuretic. ), considered differ ential (weight gain, some dyspnea - eval for CHF, renal failure, nephrotic, hypothyroid, etc.), d/w patient Departure - Departure Disposition: 01 Home, Self Care Condition: Stable Record reviewed to determine appropriate education?: Yes Instructions: ED Edema Legs Bilateral Follow-Up: KALE BOTELLO MD [Primary Care Provider] - Prescriptions: Furosemide [Lasix] 40 mg PO DAILY 10 Days #10 tablet Comments: Use the Furosemide daily for 7-10 days, until weight is well improved. Add your Potassium supplement during this same time. Continue other usual medications. Recheck if not improved over the next few days. Diagnosis: general edema and weight gain Discharge Date/Time: 04/13/21 19:54
[2021-04-13 18:08] LABS: ALBUMIN 4.1 g/dL (3.2-5.5); ALBUMIN/GLOBULIN RATIO 1.6 (1.0-2.2); BILIRUBIN,TOTAL 1.2 mg/dL (0.2-1.0); CALCIUM 8.7 mg/dL (8.5-10.3); CREATININE 1.1 mg/dL (0.6-1.2); POTASSIUM 3.5 mmol/L (3.5-5.0); TOTAL PROTEIN 6.7 g/dL (6.7-8.2)
[2021-04-13] MEDS ORDERED: FUROSEMIDE 40 MG/4 ML VIAL IVP STA (18:22)
[2021-04-13 19:48] VITALS: BP 140/88
== END 2021-04-13 19:54 | disposition home or self-care (01) ==
LOC: ED 16:45
DX: R60.1 Generalized edema (principal); R06.00 Dyspnea, unspecified; R63.5 Abnormal weight gain; I10 Essential (primary) hypertension; Z95.5 Presence of coronary angioplasty implant and graft
CPT/HCPCS: 36415; 80053; 83690; 83735; 83880; 84443; 84484; 85025; 93005; 96374; 99283

== ENCOUNTER 2021-07-19 19:07 | Emergency (ER) | payer OTHER ==
[2021-07-19] MEDS ORDERED: KETOROLAC 60 MG/2 ML VIAL IM STA (19:59)
--- NOTE | 2021-07-19 20:02 | ED Physician Documentation ---
History of Present Illness - Stated complaint Stated Complaint: RT SHOULDER PX/INJ - Chief complaint Chief Complaint: Ext Problem - Additonal information Additional information: 51-year-old male presents emergency department for evaluation of 3 months persistent right shoulder pain. Reports that 3 months ago he was doing some work at his home and was about to drop a heavy object when he went to grab it it pulled sharply on his shoulder. Since then he has had pain in the lateral shoulder worse with any movements. Because he wants to limit the amount of medications he takes he has not taken anything [id number] even Tylenol or ibuprofen. He reports a history of previous shoulder injuries on the right side with pitching as well as trauma that he thinks may have been a rotator cuff injury. He was being seen by physical therapy for quite some time. [facility] has been unable to establish again with his primary doctor. Review of Systems Constitutional: reports: Reviewed and negative Nose: reports: Reviewed and negative Throat: reports: Reviewed and negative Cardiac: reports: Reviewed and negative Respiratory: reports: Reviewed and negative GI: reports: Reviewed and negative : reports: Reviewed and negative Skin: reports: Reviewed and negative Musculoskeletal: reports: Joint pain (right shoulder) Neurologic: reports: Reviewed and negative PD PAST MEDICAL HISTORY - Past Medical History Cardiovascular: Hypertension, High cholesterol, [place] Respiratory: None, Sleep apnea Neuro: None Endocrine/Autoimmune: None GI: GERD : None HEENT: Chronic hearing loss Psych: Depression, Anxiety Musculoskeletal: Chronic back pain Derm: None - Past Surgical History Past Surgical History: Yes Cardiovascular: Coronary stent HEENT: Rhinoplasty - Present Medications Home Medications: Ambulatory Orders Medication Instructions Recorded Confirmed Amlodipine Besylate [Norvasc] 2.5 mg PO DAILY 07/08/20 04/11/21 Chlorthalidone 12.5 mg PO DAILY 07/08/20 04/11/21 Trazodone HCl 150 mg PO QPM 07/08/20 04/11/21 Aspirin EC [Ecotrin] 81 mg PO DAILY tablet 07/12/20 04/11/21 Atorvastatin [Lipitor] 40 mg PO QPM tablet 07/12/20 04/11/21 Pantoprazole [Protonix inj] 40 mg IVP QDAC vial 07/12/20 04/11/21 amLODIPine [Norvasc] 2.5 mg PO DAILY tablet 07/12/20 04/11/21 Ketorolac [Toradol] 10 mg PO Q6H PRN #30 tablet 04/11/21 Metoprolol Succinate [Toprol Xl] 50 mg PO BID 04/11/21 04/11/21 Ondansetron Odt [Zofran Odt] 4 mg TL Q6H PRN #10 tablet 04/11/21 Furosemide [Lasix] 40 mg PO DAILY 10 Days #10 tablet 04/13/21 - Allergies Allergies/Adverse Reactions: Allergies Allergy/AdvReac Type Severity Reaction Status Date / Time niacin Allergy Hives Verified 07/19/21 19:24 - Social History Does the pt smoke?: No Smoking Status: Never smoker Does the pt drink ETOH?: Yes Does the pt have substance abuse?: No - Immunizations Immunizations are current?: Yes Immunizations: TDAP >10years/unknown - POLST Patient has POLST: No POLST Status: Full Code PD ED PE EXPANDED - General General: Alert, No acute distress - Cardiac Cardiac: Regular Rate, Radial strong equal, Pedal strong equal - Respiratory Respiratory: Clear to ausultation martínez. No: Distress - Extremities Extremities: Right shoulder (Pain noted with any movement of the right shoulder. Increased pain with infraspinatus and teres minor exam. Negative empty can and Neer's sign. No swelling or erythema.) Results - Vitals Vitals: Vital Signs - 24 hr 07/19/21 19:22 Temperature 36.4 C L Heart Rate 60 Respiratory 16 Rate Blood Pressure 141/79 H O2 Saturation 99 Oxygen O2 Source Room air - Rads (name of study) right shoulder Radiology: Final report received (No acute fracture. No osseous lesion.) PD MEDICAL DECISION MAKING - ED course Complexity details: reviewed results, re-evaluated patient, d/w patient ED course: 51-year-old male presents emergency department for evaluation of 3 months worsening right shoulder pain after attempting to stop something heavy from dropping and pulling his shoulder sharply. He does have a history of previous injury to the shoulder that likely includes rotator cuff pathology. On exam he does have findings consistent with a rotator cuff tear. X-ray of the shoulder does not show an acute fracture. We have discussed that he would likely benefit from an MRI to further diagnose this. I encouraged him close follow-up with the PCP [facility] through the [facility] or otherwise in order to obtain this referral for imaging. I also discussed Tylenol and ibuprofen for analgesia at this time. Clinically on exam no swelling erythema or fevers to suggest a septic arthritis. Emergent return precautions were discussed Departure - Departure Disposition: 01 Home, Self Care Clinical Impression: Right shoulder injury Qualifiers: Encounter type: initial encounter Qualified Code(s): S49.91XA - Unspecified injury of right shoulder and upper arm, initial encounter Rotator cuff disorder Qualifiers: Laterality: right Qualified Code(s): M67.911 - Unspecified disorder of synovium and tendon, right shoulder Condition: Stable Record reviewed to determine appropriate education?: Yes Instructions: Rotator Cuff Injury Comments: Bk perez were seen in the ER [place] for pain in the right shoulder that has been getting worse over the last 3 months. As we discussed I suspect that you likely have a rotator cuff tear. The x-ray of your arm is normal. You will likely need an MRI to fully diagnose the extent of your injury. An MRI needs to be ordered through a primary care provider and cannot be done through the ER. You may benefit from physical therapy however and again this referral should come through your primary doctor. I am giving you the name of our orthopedic provider who may be able to see you though again referral needs to come through a primary doctor. I do recommend that you alternate Tylenol and ibuprofen for shoulder pain and discomfort. If at any point you develop fevers, have swelling or redness of the shoulder or have numbness or tingling in your hand or weakness in your hand then please return to the ER for a second evaluation.
--- NOTE | 2021-07-19 20:10 | XRAY Report ---
PROCEDURE: Shoulder 3 View RT INDICATIONS: pain in right shoulder for 3 months TECHNIQUE: 3 views of the shoulder were acquired. COMPARISON: None. FINDINGS: Bones: No fractures or dislocations. No suspicious bony lesions. Visualized ribs appear intact. Soft tissues: No suspicious soft tissue calcifications. IMPRESSION: No acute fracture. No osseous lesion. If symptoms and/or clinical suspicion for patholog y continue, further assessment with repeat plain films, or advanced imaging (e.g., CT, MRI, or bone s can) is recommended for further assessment. Reviewed by: Yamileth Viera MD on 07/19/2021 8:09 PM PDT Approved by: Yamileth Viera MD on 07/19/2021 8:09 PM PDT Station ID: [id number]
[2021-07-19 21:03] VITALS: BP 138/92
== END 2021-07-19 21:02 | disposition home or self-care (01) ==
LOC: ED 19:07
DX: S46.011A Strain of muscle(s) and tendon(s) of the rotator cuff of right shoulder, initial encounter (principal); X50.9XXA Other and unspecified overexertion or strenuous movements or postures, initial encounter; Y92.009 Unspecified place in unspecified non-institutional (private) residence as the place of occurrence of the external cause; I10 Essential (primary) hypertension; Z79.82 Long term (current) use of aspirin
CPT/HCPCS: 96372; 99282; 99283

== ENCOUNTER 2023-05-23 18:29 | Emergency (ER) | payer OTHER ==
[2023-05-23 18:39] VITALS: BP 150/90; O2SAT 98
[2023-05-23] MEDS ORDERED: AMOX/CLAV 875 MG/125 MG TABLET PO STA (18:49)
[2023-05-23] MEDS ORDERED: IBUPROFEN 800 MG TABLET PO STA (18:49)
[2023-05-23] MEDS ORDERED: BUFFERED LIDOCAINE 10 ML SYRINGE SUBQ STA (18:49)
[2023-05-23] MEDS ORDERED: ACETAMINOPHEN 500 MG TABLET PO STA (18:49)
[2023-05-23] MEDS ORDERED: oxyCODONE/ACET 5/325 Prepack 4 PO STA (18:49)
--- NOTE | 2023-05-23 18:50 | ED Physician Documentation ---
PD HPI LOWER EXT INJURY - Stated complaint Stated Complaint: DOG BITE - Chief complaint Chief Complaint: Wound - History obtained from History obtained from: Patient (53-year-old gentleman who is up-to-date on tetanus broke up a fight between his 2 dogs and received 2 lacerations on the right lower leg. No other injuries. Pain is pretty severe but he is driving.) PD PAST MEDICAL HISTORY - Past Medical History Cardiovascular: Hypertension, High cholesterol, [place] Respiratory: None, Sleep apnea Neuro: None Endocrine/Autoimmune: None GI: GERD : None HEENT: Chronic hearing loss Psych: Depression, Anxiety Musculoskeletal: Chronic back pain Derm: None - Past Surgical History Past Surgical History: Yes Cardiovascular: Coronary stent HEENT: Rhinoplasty - Present Medications Home Medications: Ambulatory Orders Medication Instructions Recorded Confirmed Chlorthalidone 12.5 mg PO DAILY 07/08/20 05/23/23 Trazodone HCl 150 mg PO QPM 07/08/20 05/23/23 Aspirin EC [Ecotrin] 81 mg PO DAILY tablet 07/12/20 05/23/23 Atorvastatin [Lipitor] 40 mg PO QPM tablet 07/12/20 05/23/23 amLODIPine [Norvasc] 2.5 mg PO DAILY tablet 07/12/20 05/23/23 Metoprolol Succinate [Toprol Xl] 50 mg PO BID 04/11/21 05/23/23 Furosemide [Lasix] 40 mg PO DAILY 10 Days #10 tablet 04/13/21 HYDROcod/ACETAM 5/325 [[place] 5/325] 1 - 2 tab PO Q6H PRN #20 tablet 05/28/22 Amox/Clav 875/125 [Augmentin] 1 each PO Q12H #14 tablet 05/23/23 Pantoprazole [Protonix inj] 40 mg ORAL BID 05/23/23 Tadalafil [Cialis] 20 mg PO PRN PRN 05/23/23 05/23/23 - Allergies Allergies/Adverse Reactions: Allergies Allergy/AdvReac Type Severity Reaction Status Date / Time niacin Allergy Hives Verified 05/23/23 18:32 - Social History Does the pt smoke?: No Smoking Status: Never smoker Does the pt drink ETOH?: Yes Does the pt have substance abuse?: No - Immunizations Immunizations are current?: Yes Immunizations: TDAP >10years/unknown - POLST Patient has POLST: No POLST Status: Full Code PD ED PE NORMAL - Vitals Vital signs reviewed: Yes - General General: Alert and oriented X 3, No acute distress - Extremities Extremities: Other (There is a 2 cm laceration on the lateral side of the right leg several centimeters above the ankle. There is a 3 cm laceration anteromedial right leg. No distal neurovascular compromise.) - Neuro Neuro: Alert and oriented X 3, Normal speech Results - Vitals Vitals: Vital Signs - 24 hr 05/23/23 18:32 Temperature 36.5 C Heart Rate 90 Respiratory 18 Rate Blood Pressure 150/90 H O2 Saturation 98 Oxygen O2 Source Room air - Rads (name of study) r [id number] Relevant Findings:: Final report received, EMP independent interpretation of test Procedures - Laceration (location) RLE - Medial Length in cm: 3 Wound type: Stellate, Irregular, Into subcut fat Neurovascular status: Sensory intact, Motor intact Anesthesia: Lidocaine 1% Wound preparation: Hibiclens, Irrigated copiously NS Skin layer closure: [place] Other: Patient tolerated well, No complications, Neurovascular intact, Tetanus UTD RLE - Lateral Length in cm: 3 Wound type: Stellate, Irregular, Into subcut fat Neurovascular status: Sensory intact, Motor intact Anesthesia: Lidocaine 1%, With bicarb Wound preparation: Hibiclens, Irrigated copiously NS Skin layer closure: [place] Other: Patient tolerated well, No complications, Neurovascular intact, Tetanus UTD Departure - Departure Disposition: 01 Home, Self Care Clinical Impression: Dog bite of right lower leg Qualifiers: Encounter type: initial encounter Qualified Code(s): S81.851A - Open bite, right lower leg, initial encounter Condition: Good Instructions: ED Bite Animal General Prescriptions: Amox/Clav 875/125 [Augmentin] 1 each PO Q12H #14 tablet Comments: Come back for any signs of infection which would include: Redness, swelling, drainage, increased pain, or fevers. You can wash it soap and water. Keep it covered and moist with bacitracin ointment which is available over the counter; avoid neosporin. Follow-up with your physician in about 14 days for suture removal. Forms: PCP List Discharge Date/Time: 05/23/23 19:31
--- NOTE | 2023-05-23 19:25 | XRAY Report ---
PROCEDURE: Tib/Fib RT INDICATIONS: dog bite, 2 lacs TECHNIQUE: 2 views of the tibia and fibula were acquired. COMPARISON: None. FINDINGS: Bones: No fractures or dislocations. No suspicious bony lesions. Soft tissues: No suspicious soft tissue calcifications or masses. There is subcutaneous gas overlyin g the mid calf. IMPRESSION: Trace subcutaneous gas overlying the mid calf. No displaced fracture. Reviewed by: Lobo Doherty on 05/23/2023 7:24 PM PDT Approved by: Lobo Doherty on 05/23/2023 7:24 PM PDT Station ID: [id number]
== END 2023-05-23 19:31 | disposition home or self-care (01) ==
LOC: ED 18:29
DX: S81.811A Laceration without foreign body, right lower leg, initial encounter (principal); W54.0XXA Bitten by dog, initial encounter; I10 Essential (primary) hypertension
CPT/HCPCS: 12002; 73590; 99283; A9270

== ENCOUNTER 2023-06-07 16:11 | Emergency (ER) | payer OTHER ==
[2023-06-07 16:28] VITALS: BP 141/91; O2SAT 98
--- NOTE | 2023-06-07 16:40 | ED Physician Documentation ---
History of Present Illness - Stated complaint Stated Complaint: STAPLE REMOVAL - Chief complaint Chief Complaint: General - History obtained from History obtained from: Patient - Additonal information Additional information: 53-year-old gentleman with dog bite to the right leg, stable to couple of weeks ago here for staple removal. He has 2 wounds and is still having some drainage from the more anteromedial wound. No fevers. PD PAST MEDICAL HISTORY - Past Medical History Cardiovascular: Hypertension, High cholesterol, [place] Respiratory: None, Sleep apnea Neuro: None Endocrine/Autoimmune: None GI: GERD : None HEENT: Chronic hearing loss Psych: Depression, Anxiety Musculoskeletal: Chronic back pain Derm: None - Past Surgical History Past Surgical History: Yes Cardiovascular: Coronary stent HEENT: Rhinoplasty - Present Medications Home Medications: Ambulatory Orders Medication Instructions Recorded Confirmed Chlorthalidone 12.5 mg PO DAILY 07/08/20 06/07/23 Trazodone HCl 150 mg PO QPM 07/08/20 06/07/23 Aspirin EC [Ecotrin] 81 mg PO DAILY tablet 07/12/20 06/07/23 Atorvastatin [Lipitor] 40 mg PO QPM tablet 07/12/20 06/07/23 amLODIPine [Norvasc] 2.5 mg PO DAILY tablet 07/12/20 06/07/23 Metoprolol Succinate [Toprol Xl] 50 mg PO BID 04/11/21 06/07/23 Furosemide [Lasix] 40 mg PO DAILY 10 Days #10 tablet 04/13/21 06/07/23 HYDROcod/ACETAM 5/325 [[place] 5/325] 1 - 2 tab PO Q6H PRN #20 tablet 05/28/22 Pantoprazole [Protonix inj] 40 mg ORAL BID 05/23/23 06/07/23 Tadalafil [Cialis] 20 mg PO PRN PRN 05/23/23 06/07/23 Amox/Clav 875/125 [Augmentin] 1 each PO Q12H #10 tablet 06/07/23 - Allergies Allergies/Adverse Reactions: Allergies Allergy/AdvReac Type Severity Reaction Status Date / Time niacin Allergy Hives Verified 06/07/23 16:21 - Social History Does the pt smoke?: No Smoking Status: Never smoker Does the pt drink ETOH?: Yes Does the pt have substance abuse?: No - Immunizations Immunizations are current?: Yes Immunizations: TDAP >10years/unknown - POLST Patient has POLST: No POLST Status: Full Code PD ED PE NORMAL - Vitals Vital signs reviewed: Yes - General General: Alert and oriented X 3, No acute distress - HEENT HEENT: PERRL, EOMI - Extremities Extremities: Other (There are 2 stapled wounds on the right leg, 1 on the lateral calf which looks good and another anteromedially which has just mild cellulitis around it. [place] removed during exam and replaced with Steri- Strips and bandages.) - Neuro Neuro: Alert and oriented X 3, Normal speech Results - Vitals Vitals: Vital Signs - 24 hr 06/07/23 16:21 Temperature 36.7 C Heart Rate 73 Respiratory 16 Rate Blood Pressure 141/91 H O2 Saturation 98 Oxygen O2 Source Room air Departure - Departure Disposition: 01 Home, Self Care Clinical Impression: Animal bite with open wound Condition: Good Record reviewed to determine appropriate education?: Yes Instructions: ED Wound Care Prescriptions: Amox/Clav 875/125 [Augmentin] 1 each PO Q12H #10 tablet Comments: I sent the prescription electronically to [facility] in [place]. Return if you worsen or fail to improve over the next few days.
== END 2023-06-07 16:45 | disposition home or self-care (01) ==
LOC: ED 16:11
DX: Z48.02 Encounter for removal of sutures (principal); I10 Essential (primary) hypertension
CPT/HCPCS: 99281; 99282